=== PATIENT | male | born 1995 | race Caucasian/White ===

== ENCOUNTER 2017-01-25 12:18 | Inpatient (IN) | payer BC, OTHER ==
[~2017-01-25] VITALS: Ht 172.7 cm; Wt 113.4 kg
[2017-01-25] MEDS ORDERED: LOPERAMIDE HCL 2 MG CAPSULE PO PRN ×2 (15:00)
[2017-01-25] MEDS ORDERED: DICYCLOMINE HCL 20 MG TABLET PO PRN (15:00)
[2017-01-25] MEDS ORDERED: MIRALAX 17 GM POWD.PACK PO PRN (15:00)
[2017-01-25] MEDS ORDERED: LORAZEPAM 1 MG TABLET PO PRN ×2 (15:00)
[2017-01-25] MEDS ORDERED: MAG HYDROX/AL HYDROX/SIMETH 30 ML LIQUID UDC PO PRN (15:00)
[2017-01-25] MEDS ORDERED: MAGNESIUM HYDROXIDE 30 ML LIQUID UDC PO PRN (15:00)
[2017-01-25] MEDS ORDERED: ONDANSETRON 4 MG/2 ML VIAL IM PRN (15:00)
[2017-01-25] MEDS ORDERED: LORAZEPAM 2 MG/1 ML VIAL IM PRN (15:00)
--- NOTE | 2017-01-25 15:30 | NUR ---
INTAKE ASSESSMENT Received patient AOx4, ambulatory and in stable condition. Vital signs stable. Patient reports no known allergies and no home medications. Patient did not bring any medications with her to unit. Patient reports history of one seizure. Explained unit protocols and policies and patient verbalized understanding. Will admit patient.
[2017-01-25] MEDS ORDERED: THIAMINE HCL 200 MG/2 ML VIAL IM ONE (15:39)
--- NOTE | 2017-01-25 15:40 | NUR ---
ADMISSION NOTE VITAL SIGNS: BP 133/75 PULSE: 92 TEMP: 96.8 RR: 16 O2: 98% WEIGHT 250 LBS HEIGHT 5'8 ALLERGIES NKA Patient is a 21 year old male admitted to [facility] on 01/25/17 at 1540. Patient is under the care of Dr. Platt for ETOH dependence with occasional norco, xanax, and marijuana usage. Patient denies suicidal and homicidal ideations at this time. Patient denies being hospitalized within the last 30 days. Patient denies chest pain or SOB. Patient reports no home medications.. Upon assessment patient's skin is intact. CIWA 11 COWS 9 upon admission. NKA. AOx4 and able to answer necessary questions for admission process. Patient is full code, regular diet. Patient reports seizure history- side rails padded x2. Patient denies having a PCP. Breathing is even and unlabored. Patient ambulates with steady gait. Patient states bowel habits are normal.Patient reports treatment history at [facility] to [facility]. Patient reports living with a few friends currently. Hx anxiety, depression, and bipolar. Patient smokes cigarettes occasionally. Dr. Platt has been notified and assessed patient. Patient has been oriented to unit, room, and staff. All safety measures in place per hospital policy. Bed in lowest position, side rails up x2 and padded, call light within reach. Will continue to monitor. Substance Abuse: ETOH 2 pints daily for 1 month, last drank 1/2 gallon on 01/24/17 XANAX 12 mg occasionally for 3 years, last used 12 mg 1 week ago NORCO 120 mg occasionally for 3 years, lat used 120 mg 1 week ago MARIJUANA 3 grams daily since age 12, last smoked unknown amount on 01/24/17
[2017-01-25 15:45] VITALS: BP 133/75
[2017-01-25] MEDS: LORAZEPAM 1 MG TABLET PO SCH ×2 (16:09→20:12)
[2017-01-25 16:16] LABS: *AMPHETAMINE, URINE NEGATIVE (NEGATIVE); *BARBITURATE, URINE NEGATIVE (NEGATIVE); *CANNABINOID, URINE POSITIVE (NEGATIVE); *COCCAINE, URINE NEGATIVE (NEGATIVE); *OPIATE, URINE NEGATIVE (NEGATIVE); *PHENCYCLIDINE SCREEN,URINE NEGATIVE (NEGATIVE)
[2017-01-25 17:00] LABS: BASOPHILS # (AUTO) 0.1 K/uL (0.0-8.0); BASOPHILS % (AUTO) 0.7 % (0.0-2.0); EOSINOPHILS # (AUTO) 0.1 K/uL (0.0-0.7); EOSINOPHILS % (AUTO) 0.7 % (0.0-7.0); HEMATOCRIT 48.8 % (40-50); HEMOGLOBIN 16.4 G/DL (14.0-18.0); LYMPHOCYTES # (AUTO) 1.5 K/UL (0.8-4.8); LYMPHOCYTES % (AUTO) 14.3 % (20.5-51.5); MEAN CORPUSCULAR HEMOGLOBIN 29.6 UUG (27.0-31.0); MEAN CORPUSCULAR HGB CONC 34 g/dL (32.0-37.0); MEAN CORPUSCULAR VOLUME 87.9 FL (82.0-92.0); MONOCYTES # (AUTO) 0.8 K/UL (0.1-1.30); MONOCYTES % (AUTO) 7.3 % (0.0-11.0); PLATELET COUNT (AUTO) 243 K/UL (150-450); RED BLOOD CELL COUNT(AUTO) 5.55 MIL/UL (4.7-6.1); WHITE BLOOD COUNT (AUTO) 10.5 K/UL (4.0-11.2)
[2017-01-25 17:19] LABS: ALANINE AMINOTRANSFERASE 22 U/L (16-63); ALKALINE PHOSPHATASE 53 U/L (50-136); AMYLASE 50 U/L (25-115); ASPARTATE AMINOTRANSFERASE 19 U/L (15-37); BILIRUBIN,TOTAL 0.6 mg/dL (0.2-1.0); CARBON DIOXIDE 31 mmol/L (21-32); CHLORIDE 102 mmol/L (98-107); GLUCOSE 82 mg/dL (74-106); LIPASE 100 U/L (73-393); TOTAL PROTEIN, SERUM 7.8 g/dL (6.4-8.2); UREA NITROGEN, BLOOD 15 mg/dL (7-18)
[2017-01-25 17:21] LABS: ETHANOL < 3 MG/DL (0-0)
[2017-01-25 17:29] LABS: THYROID STIMULATING HORMONE 1.202 mIU/mL (0.358-3.740)
--- NOTE | 2017-01-25 18:35 | NUR ---
END OF SHIFT NOTE Admitted patient this afternoon. Patient admitted for ETOH dependence. Patient started on 5 day Ativan taper and tolerating well. CIWA 11 upon admission. Encouraged patient to encourage fluid intake. Patient currently resting in bed with rr even and unlabored and call gunn within reach. Will endorse to manufacturing shift supervisor.
--- NOTE | 2017-01-25 18:45 | NUR ---
START OF SHIFT NOTE: Endorsed by day shift nurse patient is a 21 year old male admitted to [facility] today, on 01/25/2017 for Alcohol dependence. Patient placed on 5 day Ativan taper with first dose administrated on 01/25/2017 at 1609, which tolerated well. Patient has NKA. Patient is on Full Code, is on Regular Diet. Patient placed on Fall and Seizures Precautions. Patient reports History of Seizures r/t withdrawal on 2012. Past Medical History: Depression, Anxiety, Bipolar Disorder. Patient reports Substance Use: 1. ETOH: "Vodka 2 pints every day during one month. Last used 1/2 gallon on 01/24/2017". 2. XANAX PO: "12 mg occasionally during last 3 years. Last taken 12 mg one week ago". 3. NORCO PO: "120 mg occasionally during last 3 years. Last dose 120 mg taken one week ago". Recent treatment at "[facility]"(2017) and "[facility] (2017). Upon assessment, patient is in the room A&Ox4, cooperative. Speech is soft and clear. CIWA 9: Patient c/o anxiety, agitation, nervousness, body aches, tremors, stomach cramps, and restlessness. VS: T:98'4; HR: 86; BP: 134/84; O2SAT: 99%; RR:19. Respirations even and unlabored. Lungs Sounds are clear thoroughly. Patient denies SOB and chest pain. Heart rate is regular, murmur noted. Bowel Sounds is active in all 4 quadrants. Last Bowel Movement was "01/25/17". Encouraged fluids intake as tolerated. Encouraged to attend groups activities. Education provided for hand washing and fall prevention in the hospital. Patient returned his knowledge back by verbalized understanding. All needs met. Safety measures in the place. Call light within reach, bed in the lowest position, and locked, padded side rails up bilaterally. Will continue to monitor closely. Addendum: 01/26/17 at 0633 by JIMMY MALDONADO RN Patient reports Nat Hx on 01/24/2017. Addendum: 01/26/17 at 1909 by JIMMY MALDONADO RN Heart rate is regular, no murmur noted.
[2017-01-25 20:00] VITALS: BP 134/84
[2017-01-25] MEDS: CLONIDINE HCL 0.1 MG TABLET PO PRN (21:43)
[2017-01-25] MEDS: diphenhydrAMINE 50 MG CAPSULE PO PRN (21:53)
--- NOTE | 2017-01-25 21:53 | NUR ---
PRN CLONIDINE 0.1 MG PO AND BENADRYL PO 50 MG 1 CAPS ADMINISTRATION Patient c/o increased anxiety and insomnia. Patient asked aid. Patient assessed. CIWA 10. VS WNL. PRN Clonidine PO and PRN Benadryl PO discussed with patient. Patient's educated for actions, adverse reactions, and side effects of Clonidine and Benadryl. Patient returned back knowledge by verbalized understanding. PRN Clonidine 0.1 mg 1 tab PO and PRN Benadryl PO 50 mg 1 caps administrated as ordered with full glass of water. All needs met. Safety measures in the place. Call light within reach, bed in the lowest position, and locked, padded bed rails up x2. Will continue to monitor closely.
--- NOTE | 2017-01-25 22:53 | NUR ---
RE-ASSESSMENT Patient is sleeping. Respirations even and unlabored. RR: 16. PRN Clonidine PO and PRN Benadryl PO were effective. All needs met. Safety measures in the place. Call light within reach, bed in the lowest position, and locked, padded bed rails up x2. Will continue to monitor closely.
--- NOTE | 2017-01-25 23:41 | NUR ---
PRN ATIVAN 1 MG PO ADMINISTRATION Patient c/o increased anxiety and asked aid. Patient 's assessed. CIWA 9. Patient c/o increased anxiety, agitation, nervousness, tremors, body aches, restlessness, and sweats. VSWNL. PRN Ativan 1 mg 1 tab PO administrated as ordered with full glass of water. All needs met. Safety measures in the place. Call light within reach, bed in the lowest position, and locked, padded side rails up bilaterally. Will continue to monitor closely.
[2017-01-26] VITALS: BP 142/66
[2017-01-26] MEDS: ACETAMINOPHEN 325 MG TABLET PO PRN ×2 (00:26→08:04)
--- NOTE | 2017-01-26 00:26 | NUR ---
PRN TYLENOL 650 MG 2 TABS PO ADMINISTRATION Patient c/o pain in his left knee "03/25". Patient's assessed. Left Knee is swollen, no redness, no open wounds noted. VS: T: 98.4; HR: 92; RR: 14; O2SAT: 95; RR: 14: Respirations unlabored and even. Patient denies SOB and chest pain. Pain level in the left knee "03/25". Patient reports that "two days ago he is fallen at "[employer] ". Left leg elevated. PRN Tylenol PO discussed with patient. Patient's educated for actions, adverse reactions, and side effects of Tylenol. Patient returned back knowledge by verbalized understanding. PRN Tylenol 650 mg 2 tabs PO administrated as ordered with full glass of water. All needs met. Safety measures in the place. Call light within reach, bed in the lowest position, and locked, padded bed rails up x2. Will continue to monitor closely.
--- NOTE | 2017-01-26 00:41 | NUR ---
RE-ASSESSMENT Patient is sleeping. Respirations even and unlabored. RR: 14. PRN Ativan PO was effective. All needs met. Safety measures in the place. Call light within reach, bed in the lowest position, and locked, padded bed rails up x2. Will continue to monitor closely.
--- NOTE | 2017-01-26 01:26 | NUR ---
RE-ASSESSMENT Patient is sleeping. Respirations even and unlabored. RR: 15. PRN Tylenol PO was effective. All needs met. Safety measures in the place. Call light within reach, bed in the lowest position, and locked, padded bed rails up x2. Will continue to monitor closely.
[2017-01-26 04:00] VITALS: BP 112/69
[2017-01-26] MEDS: IBUPROFEN 400 MG TABLET PO PRN ×2 (04:17→21:01)
--- NOTE | 2017-01-26 04:17 | NUR ---
PRN MOTRIN PO ADMINISTRATION Patient c/o knee pain "03/25". Patient 's assessed. VS WNL. PRN Motrin PO discussed with patient. Patient's educated for actions, adverse reactions, and side effects of Motrin. Patient returned back knowledge by verbalized understanding. PRN Motein 400 mg 1 tab PO administrated as ordered with full glass of water. Left knee's immobilized and elevated. All needs met. Safety measures in the place. Call light within reach, bed in the lowest position, and locked, padded bed rails up x2. Will continue to monitor closely.
--- NOTE | 2017-01-26 05:17 | NUR ---
RE-ASSESSMENT Patient is sleeping. RR: 17. Respirations even and unlabored. PRN Motrin PO was effective. Safety measures in the place. Call light within reach, bed in the lowest position, and locked, padded bed rails up x2. Will continue to monitor closely.
--- NOTE | 2017-01-26 06:58 | NUR ---
END OF SHIFT NOTE: Patient endorsed to day shift nurse in stable condition. Report given. Patient is a 21 year old male admitted to [facility] on 01/25/2017 for Alcohol dependence. Patient placed on 5 day Ativan taper on 01/25/2017, tolerated well. Patient has NKA. Patient is on Full Code, is on Regular Diet. Patient is on Fall and Seizures Precautions. Past Medical History: Alcohol Use Disorder, Anxiety, Bipolar Disorder, Depression, History of withdrawal induced Seizures (2012), Tobacco Use Disorder. Last CIWA 5 at 0400. During weight shifter patient presented with the following withdrawal s/s of anxiety, agitation, nervousness, body aches, tremors, stomach cramps, restlessness, and sweats. VS at 0400: T:97.7; HR: 94; BP: 112/69; O2SAT: 98%; RR:18. Respirations even and unlabored. Patient denies chest pain and SOB. Skin is intake, warm and dry to touch. Pain level in left knee "01/23". Patient reports Fallen Hx on 01/24/2017. PRN Clonidine PO, PRN Benadryl PO, PRN Ativan PO, PRN Tylenol PO , and PRN Motrin PO administrated to patient were effective. Encourage fluids intake, as tolerated. Patient remains compliant with treatment plan, medications, and diet regimen. Patient slept 7 hours, intake 2,150 ml, voided x1. All needs met. Safety measures in the place by hospital policy: bed in the lowest position, and locked, bed rails up x2.
--- NOTE | 2017-01-26 07:30 | NUR ---
Start of shift note; Received report from night nurse. Patient is a 21 year old male admitted on 01/25/17 for ETOH dependence. Patient was placed on a 5 day Ativan taper, no adverse reactions noted. Patient reported history of depression, anxiety, bipolar disorder. NKA, full code status, regular diet. Patient is on fall and seizure precaution. Bed in lowest position, call light within reach. Will continue to monitor patient.
[2017-01-26 08:00] VITALS: BP 111/60
[2017-01-26] MEDS: THIAMINE HCL 100 MG TABLET PO SCH (08:04)
[2017-01-26] MEDS: FOLIC ACID 1 MG TABLET PO SCH (08:04)
[2017-01-26] MEDS: MULTIVITAMINS,THERAPEUTIC TABLET PO SCH (08:04)
--- NOTE | 2017-01-26 08:04 | NUR ---
PRN medication; Patient is complaining of left knee pain, rated 6/10 on pain scale. Will continue to monitor patient for effectiveness of medication.
[2017-01-26] MEDS ORDERED: TUBERCULIN,PURIF.PROT.DERIV. 5 TU/0.1 ML TEST ID ONE (09:00)
[2017-01-26] MEDS ORDERED: LORAZEPAM 1 MG TABLET PO SCH (09:00)
--- NOTE | 2017-01-26 09:04 | NUR ---
Re-assessment; Patient stated decrease in pain, current pain rated 3/10. PRN medication is effective. MD notified of patient's recent left knee injury, MD ordered XRAY for difficulty walking and to rule out dislocation.
[2017-01-26] MEDS: LORAZEPAM 1 MG TABLET PO SCH ×4 (09:24→21:01)
[2017-01-26 12:00] VITALS: BP 140/101
[2017-01-26] MEDS: ONDANSETRON ODT 4 MG TAB.RAPDIS SL PRN ×2 (12:25→22:03)
[2017-01-26] MEDS: CLONIDINE HCL 0.1 MG TABLET PO PRN (12:25)
--- NOTE | 2017-01-26 12:25 | NUR ---
PRN medication; Patient is complaining of nausea, agitation and noted BP of 140/101. PRN Zofran 4mg ODT given for nausea and Clonidine 0.1mg PO for high BP. Will continue to monitor patient for effectiveness of medication.
--- NOTE | 2017-01-26 13:25 | NUR ---
Re-assessment; PRN medications are effective. Patient's BP went down to 122/76, patient denies nausea at this time.
[2017-01-26 14:11] LABS: HEPATITIS B SURFACE AG Negative (Negative)
[2017-01-26] MEDS: HYDROXYZINE PAMOATE 25 MG CAPSULE PO PRN (14:49)
[2017-01-26] MEDS: buPROPion XL 150 MG TAB.SR.24H PO SCH (14:49)
--- NOTE | 2017-01-26 14:55 | NUR ---
PRN medication; Patient appears to be anxious manifested by patient pacing back and forth in the room. MD evaluated patient. PRN Vistaril 50mg PO given for anxiety per MD order, Will continue to monitor for effectiveness of medication.
--- NOTE | 2017-01-26 15:14 | NUR ---
X-RAY result; Left knee X-ray shows no evidence of fracture or dislocation.
--- NOTE | 2017-01-26 15:55 | NUR ---
Re-assessment; Patient appears calm and comfortable. PRN medication is effective.
[2017-01-26 16:00] VITALS: BP 135/64
--- NOTE | 2017-01-26 18:41 | NUR ---
End of shift note; Patient is AOX4. Patient is a 21 year old male admitted on 01/25/17 for ETOH dependence. Patient was placed on a 5 day Ativan taper, no adverse reactions noted. Patient reported history of depression, anxiety, bipolar disorder. NKA, full code status, regular diet. Patient is on fall and seizure precaution. Bed in lowest position, call light within reach. Patient's last CIWA is 5 at 1600. Patient remained compliant with treatment plan. Medications were effective in reducing withdrawal symptoms. Met all needs.
--- NOTE | 2017-01-26 18:41 | NUR ---
START OF SHIFT NOTE: Upon endorsement report received from day shift nurse. Patient is in the room A&Ox4, cooperative. Speech is soft and clear. Patient is a 21 year old male admitted to [facility] on 01/25/2017 for Alcohol dependence. Patient continue extended 5 day Ativan taper with first dose administrated on 01/25/2017 at 1609. Patient remains compliant with treatment, medications, and diet regimen. Patient tolerated well. Patient has NKA. Patient is on Full Code, is on Regular Diet. Patient placed on Fall and Seizures Precautions. Past Medical History: History of Seizures on 2012. Depression, Anxiety, Bipolar Disorder. Last CIWA 5 from 1600: During day shift patient presented with following withdrawal s/s of anxiety, agitation, nervousness, body aches, tremors, restlessness, and diaphoresis. VS WNL and stable during day shift. Respirations even and unlabored. Lungs Sounds are clear thoroughly. Patient denies SOB and chest pain. Heart rate is regular, no murmur noted. Bowel Sounds is active in all 4 quadrants. Last Bowel Movement was "01/26/17 in the morning". X-ray of left knee done, as ordered, and results placed in chart. Encouraged fluids intake as tolerated. Encouraged to attend groups activities. All needs met. Safety measures in the place. Call light within reach, bed in the lowest position, and locked, padded side rails up bilaterally. Will continue to monitor closely.
[2017-01-26 20:00] VITALS: BP 127/70
[2017-01-26] MEDS: diphenhydrAMINE 50 MG CAPSULE PO PRN (21:01)
--- NOTE | 2017-01-26 21:01 | NUR ---
PRN MOTRIN 400 MG 1 TAB PO AND PRN BENADRYL 50 MG 1 CAPS PO ADMINISTRATION Patient c/o knee pain "8/10" and insomnia. Patient 's assessed. VS WNL. PRN Motrin PO and PRN Benadryl PO discussed with patient. Patient's educated for actions, adverse reactions, and side effects of Motrin and Benadryl. Patient returned back his knowledge by verbalized understanding. PRN Motrin 400 mg 1 tab PO and PRN Benadryl 50 mg 1 caps PO administrated as ordered with full glass of water. Left knee's immobilized and elevated. All needs met. Safety measures in the place. Call light within reach, bed in the lowest position, and locked, padded bed rails up x2. Will continue to monitor closely.
--- NOTE | 2017-01-26 22:01 | NUR ---
RE-ASSESSMENT Patient's reassessed. Patient is lying in the bed. Patient reports pain level now "2/10". PRN Motrin PO was effective. Patient said that PRN Benadryl PO was not effective. Patient "trying sleeping, but can't". Patient educated for keep left knee elevated. Left knee's immobilized and elevated, keep room quietest as possible: turn voice of TV "down", and not going out of the bed. Patient returned back his knowledge by verbalized understanding. All needs met. Safety measures in the place. Call light within reach, bed in the lowest position, and locked, padded bed rails up x2. Will continue to monitor closely.
--- NOTE | 2017-01-26 22:03 | NUR ---
PRN ZOFRAN ODT 4 MG 1 TAB SL ADMINISTRATION Patient c/o nausea and asked aid. Patient assessed. VS WNL. Patient denies vomiting and diarrhea now. PRN Zofran Odt 4 mg SL administrated as ordered. Patient tolerated well. Safety measures in the place. Call light within reach, bed in the lowest position and locked, padded rails up x2. Will continue to monitor closely.
--- NOTE | 2017-01-26 22:45 | NUR ---
NURSING ASSESSMENT Patient found on the shower floor. Neurological assessment done. Patient is A&Ox4, speech is soft and clear. DA bilaterally. Upper and Lower Extremities WNL. Assessment done: patient remains free from injury. VS: T: 98.1, HR: 78; BP: 120/68 and 124/70, RA O2Sat:98%, RR: 18., Pain Level "2/10" in the left knee. Andrew Martin MD phoned and notified for patient condition. Andrew Martin MD ordered neurological assessment Q4H. All needs met. Safety measures in the place. Call light within reach, bed in the lowest position, and locked, padded bed rails up x2. Will continue to monitor closely.
--- NOTE | 2017-01-26 23:03 | NUR ---
RE-ASSESSMENT Patient denies nausea now. PRN Zofran was was effective. Safety measures in the place. Call light within reach, bed in the lowest position and locked, padded rails up x2. Will continue to monitor closely.
[2017-01-27] VITALS: BP 140/71
[2017-01-27 04:00] VITALS: BP 108/64
--- NOTE | 2017-01-27 07:03 | NUR ---
END OF SHIFT NOTE: Patient endorsed to day shift nurse in stable condition. Report given. Patient is a 21 year old male admitted to [facility] on 01/25/2017 for Alcohol dependence. Patient continue extended 5 day Ativan taper since 01/25/2017, tolerated well. Patient has NKA. Patient is on Full Code, is on Regular Diet. Patient is on Fall and Seizures Precautions. Past Medical History: Alcohol Use Disorder, Anxiety, Bipolar Disorder, Depression, History of withdrawal induced Seizures (2012), Tobacco Use Disorder. Patient reports Fallen Hx on 01/24/2017. During shift coordinator patient found on the shower floor. Assessment done: Patient A&O x4, stable gait. VS WNL. DA, Upper and Lower Extremities are Normal. Patient remains free from injury. Doctor Andrew Kelsey MD phoned and notified for patient condition. Andrew Martin MD ordered neurological assessment Q4H. Last CIWA 5 at 0400. Patient presented with the following withdrawal s/s of anxiety, agitation, nervousness, body aches, tremors, nausea, restlessness, and sweats. VS at 0400: T:97.8; HR: 80; BP: 108/64; O2SAT: 99%; RR:17. Pain level "0/10". Respirations even and unlabored. Skin is intake, warm and dry to touch. PRN Benadryl PO, PRN Motrin PO, and PRN Zofran Odt SL administrated to patient, and were effective. Patient encouraged to drink and provided with PO fluids. Encouraged to attend groups activities. Patient remains compliant with treatment plan, medications, and diet regimen. Patient slept 3 hours, intake 2,240 ml, voided x1. All needs met. Safety measures in the place by hospital policy: bed in the lowest position, and locked, bed rails up x2.
--- NOTE | 2017-01-27 07:44 | NUR ---
Start of shift note; Received report from night nurse. Patient is a 21 year old male admitted on 01/25/17 for ETOH dependence. Patient was placed on a 5 day Ativan taper, no adverse reactions noted. Patient reported history of depression, anxiety, bipolar disorder. NKA, full code status, regular diet. Patient is on fall and seizure precaution. Neuro assessment to be done Q4H per MD order. Patient's last CIWA is 5 at 0400 and patient slept for 3 hours. Bed in lowest position, call light within reach. Will continue to monitor patient.
[2017-01-27 08:00] VITALS: BP 110/65
[2017-01-27] MEDS: buPROPion XL 150 MG TAB.SR.24H PO SCH (08:04)
[2017-01-27] MEDS: THIAMINE HCL 100 MG TABLET PO SCH (08:04)
[2017-01-27] MEDS: FOLIC ACID 1 MG TABLET PO SCH (08:04)
[2017-01-27] MEDS: LORAZEPAM 1 MG TABLET PO SCH ×3 (08:04→21:21)
[2017-01-27] MEDS: MULTIVITAMINS,THERAPEUTIC TABLET PO SCH (08:04)
[2017-01-27] MEDS ORDERED: LORAZEPAM 1 MG TABLET PO SCH ×2 (09:00)
--- NOTE | 2017-01-27 10:29 | NUR ---
Clinician encouraged client to start attending groups and told the client the group times. Client stated he would think about it.
--- NOTE | 2017-01-27 11:00 | NUR ---
Neuro Check; Neuro check done, thoroughly assessed patient. Patient is AOX4, denies any pain at this time. Patient was also evaluated by MD. MD notified of patient's condition. Will closely monitor patient.
[2017-01-27 12:00] VITALS: BP 123/73
[2017-01-27] MEDS ORDERED: LORAZEPAM 1 MG TABLET PO ONE (12:30)
--- NOTE | 2017-01-27 12:32 | NUR ---
One time order; Patient appears to be very anxious and agitated, pacing back and forth in the room, restless legs noted, complaining of mild tingling sensation on lower extremities. Patient's current CIWA score is 9. MD ordered Ativan 1mg PO one time order, given as ordered. Will closely monitor patient for effectiveness of medication.
[2017-01-27] MEDS ORDERED: BACLOFEN 20 MG TABLET PO PRN (12:45)
--- NOTE | 2017-01-27 13:32 | NUR ---
Re-assessment; Patient is AOX4. Patient's current CIWA score is 5. One time Ativan dose is effective.
[2017-01-27] MEDS: GABAPENTIN 300 MG CAPSULE PO SCH ×2 (14:49→21:21)
[2017-01-27 16:00] VITALS: BP 130/86
--- NOTE | 2017-01-27 16:55 | NUR ---
PRN medication; Patient is AOX4. Patient appears agitated, complaining of muscle spasms and hot and cold sweats. PRN Clonidine 0.1mg PO given for BP of 131/101. PRN Baclofen 20mg PO given for muscle spasms. Will continue to monitor patient for effectiveness of medication.
[2017-01-27] MEDS: CLONIDINE HCL 0.1 MG TABLET PO PRN (16:56)
--- NOTE | 2017-01-27 17:55 | NUR ---
Re-assessment; Patient's current BP is 128/72, HR 88. Patient stated decrease in muscle spasms. Patient appears calm and comfortable at this time. PRN medications are effective.
--- NOTE | 2017-01-27 18:43 | NUR ---
End of shift note; Patient is AOX4. Patient remained compliant with treatment plan. Medication were effective in reducing withdrawal symptoms. Patient's last CIWA score is 5 at 1600. Patient is on fall and seizure precaution. All safety measures secured. Met all needs.
[2017-01-27 20:00] VITALS: BP 138/86
--- NOTE | 2017-01-27 20:00 | NUR ---
Start of Shift Note: Report received from day shift nurse. Pt is a 21 Y/O male admitted on 01/25/2017 for medically-supervised withdrawal from ETOH, benzodiazepines, and opiates. Pt reports drinking 2 pints vodka daily for one month, and taking 12mg Xanax and 120mg [place] occasionally for the past 3 years. Pt is on a 5-day Ativan taper. Pt received with last CIWA=5, and PRN's clonidine and baclofen were given during day shift. Full code status, on regular diet, and reports NKDA/NKFA. Pt reports PMHx: depression, anxiety, bipolar DO, and hx of sz r/t withdrawal. Pt received in room and reports anxiety, diaphoresis, nausea, agitation, tactile disturbances. Bed is in low position and locked, side rails up x2, call light within reach. Will continue to monitor.
[2017-01-27] MEDS: IBUPROFEN 400 MG TABLET PO PRN (21:21)
--- NOTE | 2017-01-27 21:21 | NUR ---
PRN Motrin: Patient complains of generalized pain. Patient rates pain 8/10. Administered PRN Motrin as ordered. Will continue to monitor.
--- NOTE | 2017-01-27 22:20 | NUR ---
Reassessment: Patient denies pain at this time. Pain level decreased from 8 to 0 one hour after medication administration. PRN Motrin effective.
--- NOTE | 2017-01-27 23:45 | NUR ---
Hallucinations: Patient reports anxiety and "feeling like someone is trying to put a pillow over my face". Patient states, "I'm not having auditory hallucinations though." Will administer PRN Vistaril for anxiety and patient placed on 1:1 for safety. MD made aware.
[2017-01-27] MEDS: HYDROXYZINE PAMOATE 25 MG CAPSULE PO PRN (23:52)
--- NOTE | 2017-01-27 23:52 | NUR ---
PRN Vistaril: Patient complains of anxiety. Non-pharmacological measures not effective. Administered PRN Vistaril as ordered. Will continue to monitor.
[2017-01-28] VITALS: BP 137/87
--- NOTE | 2017-01-28 00:55 | NUR ---
PRN Reassessment: Patient states that PRN Vistaril was mildly effective at reducing anxiety. Will continue to monitor.
[2017-01-28 04:00] VITALS: BP 117/63
--- NOTE | 2017-01-28 04:00 | NUR ---
CIWA Deferred: CIWA assessment is defered for sleep. V/S stable. Safety precautions are in place. Will continue to monitor. Addendum: 01/28/17 at 0444 by GISELA DAS RN Amended: Links added.
--- NOTE | 2017-01-28 07:06 | NUR ---
End of Shift Note: Pt is a 21 Y/O male admitted to [facility] on 01/25/2017 for medically-supervised withdrawal from ETOH, benzodiazepines, and opiates. Pt reports PMHx: depression, anxiety, bipolar DO, and hx of sz r/t withdrawal. P is a full code. Pt is on a regular diet. Pt reports NKDA/NKFA. Pt reports drinking 2 pints vodka daily for one month, and taking 12mg Xanax and 120mg [place] occasionally for the past 3 years. Pt continues on a 6-day Ativan taper. Scheduled medication regime effectively managed s/s of withdrawal this shift, in addition to PRNs Vistaril for anxiety and PRN Motrin for pain. Last CIWA=5 at 00:00. V/S stable throughout shift with tachycardia (104 and 95). Patient reported visual hallucinations this shift and then reported that he was not experiencing further hallucinations after being placed on 1:1 for safety. Total fluid intake this shift: 1755 ml; output: urine x 3 and BM x 0. Pt is currently in bed and slept 5 hours this shift. All needs have been attended and met. Pt endorsed to day shift nurse.
--- NOTE | 2017-01-28 07:07 | NUR ---
Start of Shift Notes: Patient received in his room. Alert and oriented x 4. Able to make needs known. Respirations even and unlabored. No SOB noted. Skin warm and dry to touch. Abdomen soft and non-distended. BS (+) in all 4 quadrants. No complains of nausea, vomiting, diarrhea or constipation noted. No complains of abdominal discomfort noted. Voids independently. Ambulatory ad lesli with steady gait. Patient is a 21 year old male admitted for ETOH dependence who was placed on a 5-day Ativan taper as ordered. No adverse reactions noted. Has past medical hx of anxiety, depression, bipolar disorder, and seizures. NKA. Full code. Regular diet. Educated patient on his current medication regimen and his current plan of care. Slept for 9 hours. Last CIWA 5. Will continue to monitor closely.
[2017-01-28 08:00] VITALS: BP 139/93
[2017-01-28] MEDS: buPROPion XL 150 MG TAB.SR.24H PO SCH (08:26)
[2017-01-28] MEDS: GABAPENTIN 300 MG CAPSULE PO SCH ×3 (08:26→21:26)
[2017-01-28] MEDS: FOLIC ACID 1 MG TABLET PO SCH (08:26)
[2017-01-28] MEDS: THIAMINE HCL 100 MG TABLET PO SCH (08:27)
[2017-01-28] MEDS: MULTIVITAMINS,THERAPEUTIC TABLET PO SCH (08:27)
[2017-01-28] MEDS: LORAZEPAM 1 MG TABLET PO SCH ×4 (08:27→21:27)
[2017-01-28] MEDS: IBUPROFEN 400 MG TABLET PO PRN (08:32)
--- NOTE | 2017-01-28 08:32 | NUR ---
Motrin 400 mg PO given: Patient noted with complain of 7/10 headache. Non-pharmacological interventions were ineffective. Medicated patient with Motrin 400 mg PO as ordered. Will monitor for effectiveness.
[2017-01-28] MEDS ORDERED: LORAZEPAM 1 MG TABLET PO SCH ×2 (09:00)
--- NOTE | 2017-01-28 09:32 | NUR ---
Re-assessment: Per patient, PRN Motrin was effective in reducing headache. PL 10/23.
[2017-01-28 12:00] VITALS: BP 116/69
--- NOTE | 2017-01-28 13:37 | NUR ---
Therapist encouraged client to attend group therapy today at 11am and 3:30pm. Client responded by stating that he would attend.
[2017-01-28 16:01] VITALS: BP 157/78
[2017-01-28] MEDS ORDERED: BACLOFEN 20 MG TABLET PO PRN (17:15)
--- NOTE | 2017-01-28 18:46 | NUR ---
End of Shift Notes: Patient is a 21 year old male admitted for ETOH dependence who was placed on an extended 5-day Ativan taper as ordered. No adverse reactions noted. Has past medical hx of depression, anxiety and bipolar disorder. VS monitored closely. No significant abnormalitites noted. Withdrawal symptoms were closely monitored. Patient presented with anxiety and sweats. Initial CIWA 3. Last CIWA 3. Motrin 400 mg PO given for headache with help after 1 hour. Compliant with care and treatment, however appears to med seek at times. All needs met and attended. Will continue to monitor closely.
[2017-01-28 20:00] VITALS: BP 138/85
--- NOTE | 2017-01-28 20:00 | NUR ---
Start of Shift Note: Report received from day shift nurse. Pt is a 21yo male admitted on 01/25/2017 for medically-supervised withdrawal from ETOH. Pt reports drinking 2 pints vodka daily for one month. Pt also reports taking 12mg Xanax and 120mg [place] intermittently for the past 3 years. Pt is on an extended 5-day Ativan taper. Pt received with last CIWA=3, and PRN Motrin was given during day shift. Full code, NKDA/NKFA, regular diet. Pt reports PMHx: anxiety, bipolar DO, depression, and sz r/t withdrawal. Pt received in room and reports anxiety, diaphoresis, agitation. Bed is in low position and locked, side rails up x2, call light within reach. Will continue to monitor.
[2017-01-28] MEDS: risperiDONE 0.5 MG TABLET PO SCH (21:26)
[2017-01-28] MEDS: BACLOFEN 20 MG TABLET PO SCH (21:27)
[2017-01-29] VITALS: BP 147/78
[2017-01-29 04:00] VITALS: BP 133/65
--- NOTE | 2017-01-29 04:00 | NUR ---
CIWA Deferred: CIWA deferred for sleep. V/S stable. All safety precautions are in place. Will continue to monitor. Addendum: 01/29/17 at 0456 by GISELA DAS RN Amended: Links added.
[2017-01-29] MEDS: BACLOFEN 20 MG TABLET PO SCH ×3 (06:33→21:47)
--- NOTE | 2017-01-29 06:37 | NUR ---
[address]: End of Shift Note: Pt is a 21 yo male admitted to [facility] on 01/25/2017 for medically-supervised withdrawal from ETOH, benzos, and opiates. Pt reports PMHx: anxiety, depression, bipolar DO, and sz r/t withdrawal. Pt is a full code. Pt reports NKDA/NKFA. Pt is on a regular diet. Pt reports drinking 2 pints vodka daily for one month, and taking 12mg Xanax and 120mg [place] intermittently for 3 years. Pt continues on a 6-day Ativan taper. Scheduled medication regime effectively managed s/s of withdrawal this shift, and no PRNs were necessary. Last CIWA=3 at 00:00. V/S stable throughout shift. Total fluid intake this shift: 2973 ml; output: urine x 3 and BM x 0. Pt is currently in bed and slept 6 hours this shift. All needs have been attended and met. Pt endorsed to day shift nurse.
--- NOTE | 2017-01-29 07:46 | NUR ---
Start of Shift Notes: Patient received in his room. Alert and oriented x 4. Able to make needs known. Respirations even and unlabored. No SOB noted. Skin warm and dry to touch. Abdomen soft and non-distended. BS (+) in all 4 quadrants. No complains of nausea, vomiting, diarrhea or constipation noted. No complains of abdominal discomfort noted. Voids independently. Ambulatory ad lesli with steady gait. Patient is a 21 year old male admitted for ETOH dependence who was placed on a 5-day Ativan taper as ordered. No adverse reactions noted. Has past medical hx of anxiety, depression, bipolar disorder, and seizures. NKA. Full code. Regular diet. Educated patient on his current medication regimen and his current plan of care. Slept for 6 hours. Last CIWA 3. Will continue to monitor closely.
[2017-01-29 08:00] VITALS: BP 134/67
[2017-01-29] MEDS: buPROPion XL 150 MG TAB.SR.24H PO SCH (08:42)
[2017-01-29] MEDS: MULTIVITAMINS,THERAPEUTIC TABLET PO SCH (08:43)
[2017-01-29] MEDS: LORAZEPAM 1 MG TABLET PO SCH ×3 (08:43→21:47)
[2017-01-29] MEDS: GABAPENTIN 300 MG CAPSULE PO SCH ×3 (08:43→21:46)
[2017-01-29] MEDS: FOLIC ACID 1 MG TABLET PO SCH (08:43)
[2017-01-29] MEDS: THIAMINE HCL 100 MG TABLET PO SCH (08:43)
[2017-01-29] MEDS ORDERED: LORAZEPAM 1 MG TABLET PO SCH ×2 (09:00)
[2017-01-29 12:00] VITALS: BP 135/60
--- NOTE | 2017-01-29 15:52 | NUR ---
Therapist discussed group psychotherapy with client, and encouraged client to engage in daily participation. Client was reminded of group times (11am and 3:30pm).
[2017-01-29 16:00] VITALS: BP 135/93
--- NOTE | 2017-01-29 18:58 | NUR ---
End of Shift Notes: Patient is a 21 year old male admitted for ETOH dependence who was placed on an extended 5-day Ativan taper as ordered. No adverse reactions noted. Has past medical hx of depression, anxiety and bipolar disorder. VS monitored closely. No significant abnormalities noted. Withdrawal symptoms were closely monitored. Patient presented with anxiety and sweats. Initial CIWA 3. Last CIWA 2. Compliant with care and treatment. Participated in group and in activities. All needs met and attended. Will continue to monitor closely.
[2017-01-29 20:00] VITALS: BP 142/89
--- NOTE | 2017-01-29 20:00 | NUR ---
Start of Shift Note: Report received from day shift nurse. Pt is a 21yo male admitted on 01/25/2017 for medically-supervised withdrawal from alcohol. Pt reports drinking 2 pints vodka daily for a month. Pt also reports taking 12mg Xanax and 120mg [place] intermittently for 3 years. Pt continues on a 6-day Ativan taper. Pt received with last CIWA=2, and no PRN medications were given during day shift. Full code, NKDA/NKFA, regular diet. Pt reports PMHx: anxiety, bipolar DO, depression, and sz r/t withdrawal. Pt received in room and reports diaphoresis and anxiety. Bed is in low position and locked, side rails up x2, call light within reach. Will continue to monitor.
[2017-01-29] MEDS: risperiDONE 0.5 MG TABLET PO SCH (21:47)
[2017-01-30] VITALS: BP 138/85
--- NOTE | 2017-01-30 | NUR ---
CIWA Deferred: CIWA assessment is deferred for sleep. V/S stable. All safety precautions are in place. Will continue to monitor. Addendum: 01/30/17 at 0117 by GISELA DAS RN Amended: Links added.
[2017-01-30 04:00] VITALS: BP 121/82
--- NOTE | 2017-01-30 04:00 | NUR ---
CIWA Deferred: CIWA deferred for sleep. V/S stable, all safety precautions in place. Will continue to monitor. Addendum: 01/30/17 at 0429 by GISELA DAS RN Amended: Links added.
[2017-01-30] MEDS: BACLOFEN 20 MG TABLET PO SCH ×3 (05:58→21:11)
--- NOTE | 2017-01-30 06:48 | NUR ---
End of Shift Note: Pt is a 21M admitted on 01/25/2017 for medically-supervised withdrawal from ETOH. PMHx of anxiety, depression, bipolar DO, and SZ. Full code status, NKDA/NKFA, regular diet. Pt reported drinking 2 pints of vodka daily for one month. Pt also reported taking 12mg Xanax and 120mg [place] intermittently for 3 years. Pt is to start day six of a 6-day Ativan taper today. Scheduled medication regime effectively managed s/s of withdrawal this shift, and no PRN medications were necessary. Last CIWA=2 at 20:00. V/S stable throughout shift, with tachycardia. Total fluid intake this shift: 2292 ml; output: urine x 2 and BM x 1. Pt is currently in bed and slept 6 hours this shift. All needs attended and met. Pt endorsed to day shift nurse.
--- NOTE | 2017-01-30 07:00 | NUR ---
Start of Shift Notes: Patient received in his room. Alert and oriented x 4. Able to make needs known. Respirations even and unlabored. No SOB noted. Skin warm and dry to touch. Abdomen soft and non-distended. BS (+) in all 4 quadrants. No complains of nausea, vomiting, diarrhea or constipation noted. No complains of abdominal discomfort noted. Voids independently. Ambulatory ad lesli with steady gait. Patient is a 21 year old male admitted for ETOH dependence who was placed on a 5-day Ativan taper as ordered. No adverse reactions noted. Has past medical hx of anxiety, depression, bipolar disorder, and seizures. NKA. Full code. Regular diet. Educated patient on his current medication regimen and his current plan of care. Slept for 6 hours. Last CIWA 2. Will continue to monitor closely.
[2017-01-30 08:00] VITALS: BP 122/66
[2017-01-30] MEDS: FOLIC ACID 1 MG TABLET PO SCH (08:20)
[2017-01-30] MEDS: LORAZEPAM 1 MG TABLET PO SCH ×2 (08:20→21:10)
[2017-01-30] MEDS: GABAPENTIN 300 MG CAPSULE PO SCH ×3 (08:20→21:11)
[2017-01-30] MEDS: MULTIVITAMINS,THERAPEUTIC TABLET PO SCH (08:20)
[2017-01-30] MEDS: buPROPion XL 150 MG TAB.SR.24H PO SCH (08:20)
[2017-01-30] MEDS: THIAMINE HCL 100 MG TABLET PO SCH (08:21)
--- NOTE | 2017-01-30 08:21 | NUR ---
Vit B1 not administered: Patient refused Vitamin B1 medication. Educated patient on the benefits of the med and risk but patient still refused. Patient states "I don't need it right now." Notified MD. Will continue to monitor.
[2017-01-30] MEDS: IBUPROFEN 400 MG TABLET PO PRN (11:04)
--- NOTE | 2017-01-30 11:04 | NUR ---
Motrin and Miralax given: Patient complained of 5/10 headache. Also complains of constipation. Oral fluids encouraged. Encouraged activity and exercises. Medicated patient with Miralax 17grams as ordered. Will monitor for effectiveness.
--- NOTE | 2017-01-30 11:13 | NUR ---
MD Communication: Notified MD that patient has had no changes in LOC. Per MD, ok to complete neurochecks.
[2017-01-30 12:00] VITALS: BP 129/85
--- NOTE | 2017-01-30 12:04 | NUR ---
Re-assessment: Per patient, PRN Motrin was effective in relieving headache. No results noted from Miralax at this time. Will continue to monitor.
[2017-01-30 16:00] VITALS: BP 139/80
--- NOTE | 2017-01-30 18:49 | NUR ---
End of Shift Notes: Patient is a 21 year old male admitted for ETOH dependence who was placed on an extended 5-day Ativan taper as ordered. No adverse reactions noted. Has past medical hx of depression, anxiety and bipolar disorder. VS monitored closely. No significant abnormalities noted. Withdrawal symptoms were closely monitored. Patient presented with anxiety. Initial CIWA 2. Last CIWA 1. Medicated patient with Motrin 400 mg PO at 1104 for headache and Miralax 17gm PO for constipation. No relief noted from Miralax at this time. Compliant with care and treatment. Participated in group and in activities. All needs met and attended. Will continue to monitor closely.
[2017-01-30 20:00] VITALS: BP 137/69
--- NOTE | 2017-01-30 20:00 | NUR ---
1999 Patient received awake, alert and ambulating to his room # 316, from [employer] group in recreation room. Gait is steady. Patient responds with big smile and " Hi, you my nurse tonight?", when nurse greets patient and introduces herself. Patient is oriented to person, place, day, date, time and his personal situation. Patient's color is tannish-pink and his skin is clean, warm, dry and intact. Lung sounds are clear bilaterally and active bowel sounds are noted X 4 abdominal Quads, per auscultation. Patient states that he is " feeling good and he has been taking his regular diet trays, having regular food snacks and taking fluids ad lesli with no real gastric issues. Patient states further that he has been attending [employer] groups regularly. Vital signs are: 98.5-104-18 137/69, O2 Sat 97%, CIWA 2. Patient offers no requests or c/o anything at this time. Patient was admitted on 01/25/17 for: Alcohol (Vodka), Xanax and [place] withdrawal and he is currently on a 5-Day Ativan medication taper per MD order, which he has apparently been tolerating well. Bed is locked and in lowest position, bed rails are up X 1 and call light within patient's easy reach.
[2017-01-30] MEDS: risperiDONE 0.5 MG TABLET PO SCH (21:11)
[2017-01-30] MEDS: ACETAMINOPHEN 325 MG TABLET PO PRN (21:11)
--- NOTE | 2017-01-30 21:11 | NUR ---
PRN MEDICATION: Prn Tylenol 650 mg p.o. given per request for a " headache I've had all day". 8/10 pain scale.
--- NOTE | 2017-01-30 22:11 | NUR ---
REASSESSMENT PRN MEDICATION: Patient watching television, while lying in bed. Patient states that prn Tylenol has helped his headache, 2/10 pain scale now.
--- NOTE | 2017-01-31 | NUR ---
Patient refused to be awakened for V/S to be done at this time.
--- NOTE | 2017-01-31 04:00 | NUR ---
Patient refused to be awakened for V/S to be done at this time.
[2017-01-31] MEDS: BACLOFEN 20 MG TABLET PO SCH ×3 (06:09→21:34)
--- NOTE | 2017-01-31 06:30 | NUR ---
0630 Patient slept a total of 6 hours and he had 2 voids and 1 stools. Total intake was 2,565 ml p.o. Prn medication given noted separately per floor protocol. V/SS afebrile, last CIWA 2 at 0000. Patient is presently sleeping comfortably in stable condition, with eyes closed and respirations noted at 12.
--- NOTE | 2017-01-31 07:00 | NUR ---
Start of Shift Notes: Patient received in his room. Alert and oriented x 4. Able to make needs known. Respirations even and unlabored. No SOB noted. Skin warm and dry to touch. Abdomen soft and non-distended. BS (+) in all 4 quadrants. No complains of nausea, vomiting, diarrhea or constipation noted. No complains of abdominal discomfort noted. Voids independently. Ambulatory ad lesli with steady gait. Patient is a 21 year old male admitted for ETOH dependence who was placed on a extended 5-day Ativan taper as ordered. No adverse reactions noted. Has past medical hx of anxiety, depression, bipolar disorder, and seizures. NKA. Full code. Regular diet. Educated patient on his current medication regimen and his current plan of care. Encouraged oral fluid intake and encouraged group participation to learn new skills to prevent relapse. Slept for 6 hours. Last CIWA 2. Will continue to monitor closely.
[2017-01-31 08:00] VITALS: BP 117/67
[2017-01-31] MEDS: MULTIVITAMINS,THERAPEUTIC TABLET PO SCH (08:53)
[2017-01-31] MEDS: THIAMINE HCL 100 MG TABLET PO SCH (08:53)
[2017-01-31] MEDS: FOLIC ACID 1 MG TABLET PO SCH (08:53)
[2017-01-31] MEDS: GABAPENTIN 300 MG CAPSULE PO SCH ×3 (08:53→20:06)
[2017-01-31] MEDS: buPROPion XL 150 MG TAB.SR.24H PO SCH (08:53)
[2017-01-31 12:00] VITALS: BP 125/74
[2017-01-31] MEDS ORDERED: KETOROLAC TROMETHAMINE 30 MG INJ IM PRN (13:45)
[2017-01-31 13:52] LABS: *AMPHETAMINE, URINE NEGATIVE (NEGATIVE); *BARBITURATE, URINE NEGATIVE (NEGATIVE); *CANNABINOID, URINE NEGATIVE (NEGATIVE); *COCCAINE, URINE NEGATIVE (NEGATIVE); *OPIATE, URINE NEGATIVE (NEGATIVE); *PHENCYCLIDINE SCREEN,URINE NEGATIVE (NEGATIVE)
--- NOTE | 2017-01-31 14:16 | NUR ---
Toradol 30 mg IM given: Patient noted with complain of 7/10 headache. MD ordered for patient to have Toradol 30 mg IM as ordered. Toradol 30 mg IM as ordered given to patient's left deltoid. No s.s of bleeding to area noted.
--- NOTE | 2017-01-31 14:46 | NUR ---
Re-assessment: Per patient, PRN Toradol was effective in reducing headache. PL 2.
[2017-01-31 16:00] VITALS: BP 125/74
[2017-01-31] MEDS ORDERED: BACL20TA PO (17:14)
[2017-01-31] MEDS ORDERED: RISP0.5T5 PO (17:14)
[2017-01-31] MEDS ORDERED: BUPR-96 PO (17:14)
[2017-01-31] MEDS ORDERED: GABA-534 PO (17:14)
--- NOTE | 2017-01-31 18:53 | NUR ---
End of Shift Notes: Patient is a 21 year old male admitted for ETOH dependence who was placed on an extended 5-day Ativan taper as ordered. No adverse reactions noted. Patient completed taper today and will be discharging tomorrow. UDS in and resulted. Has past medical hx of depression, anxiety and bipolar disorder. VS monitored closely. No significant abnormalities noted. Withdrawal symptoms were closely monitored. Patient presented with anxiety. Initial CIWA 2. Last CIWA 1. Medicated patient with Toradol 30 mg IM as ordered at 1416 for headache with help after 30 minutes. Compliant with care and treatment. Participated in group and in activities. All needs met and attended. Will continue to monitor closely. .
[2017-01-31 20:00] VITALS: BP 154/72
--- NOTE | 2017-01-31 20:00 | NUR ---
1999 Patient received awake, alert and ambulating to his room # 316 from [employer] group in recreation room. Gait is brisk, steady. Upon seeing nurse, patient states, " Hi, you my nurse again tonight?" Patient's color is mcmillan-pink and his skin is clean, warm, dry and intact. Patient is oriented to person, place, day, date, time and his personal situation. Patient states that he is being discharged tomorrow and he states that, though he is happy to be taking the next step in his new sobriety quest, he is also feeling " a little nervous". Patient given calm reassurances, praise for his detox accomplishment thus far and positive encouragement for his future. Patient then states, " Oh thank you". Vital signs are: 97.9-96-16 154/72, O2 Sat 98%, CIWA 1. Patient states that he continues to attend all [employer] groups, eat all of his regular diet trays and take fluids ad lesli, with no gastric issues. Patient was admitted on 01/25/17 for: Alcohol (Vodka), Xanax and [place] withdrawal and his 5-Day Ativan medication taper has been completed at this time. Patient offers no requests and overall he is friendly, cooperative and verbally appropriate when interacting with nurse. Mood/affect is both bright and a bit guarded. Bed is locked and in lowest position, bed rails are up X 1 and call light is within patient's easy reach.
[2017-01-31] MEDS: risperiDONE 0.5 MG TABLET PO SCH (20:06)
[2017-01-31] MEDS: ACETAMINOPHEN 325 MG TABLET PO PRN (20:07)
--- NOTE | 2017-01-31 20:07 | NUR ---
PRN MEDICATION: Prn Tylenol 650 mg p.o. given per request for c/o frontal headache, 5/10 pain scale.
--- NOTE | 2017-01-31 21:07 | NUR ---
REASSESSMENT PRN MEDICATION: Patient watching television in recreation room with other patients. Patient states that his headache is much improved now, " a zero", he states.
--- NOTE | 2017-02-01 | NUR ---
Patient refused to be awakened for V/S to be taken at this time.
--- NOTE | 2017-02-01 04:00 | NUR ---
Patient refused to be awakened for V/S to be taken at this time.
[2017-02-01] MEDS: BACLOFEN 20 MG TABLET PO SCH (06:05)
--- NOTE | 2017-02-01 06:30 | NUR ---
0630 Patient slept a total of 6 hours and he had 3 voids and no stools. Total intake was 1,291 ml p.o. Prn medication given noted separately per floor protocol. V/SS afebrile, last CIWA was 1 at 0000. Patient is presently sleeping soundly with eyes closed and respirations deep, even, lightly stenorous, unlabored at 14.
--- NOTE | 2017-02-01 07:15 | NUR ---
Start Of Shift Patient received . Pt is a 21M admitted on 01/25/2017 for medically-supervised withdrawal from ETOH. Pt is full code regular diet continues on fall and seizure precautions. Pt completed his 5 day ativan taper, tolerated well. Pt denies any food or drug allergies. Pts last CIWA was a 1 taken at 0400. Pt received a PRN Tylenol last night, medication was effective per mine shifter nurse. Liquids encouraged to facilitate the detox process. Pt slept a total of 6 hours last night. All safety measures in place, call light within reach, will continue to monitor and provide care.
[2017-02-01 08:00] VITALS: BP 126/73
[2017-02-01] MEDS: buPROPion XL 150 MG TAB.SR.24H PO SCH (08:50)
[2017-02-01] MEDS: FOLIC ACID 1 MG TABLET PO SCH (08:50)
[2017-02-01] MEDS: MULTIVITAMINS,THERAPEUTIC TABLET PO SCH (08:50)
[2017-02-01] MEDS: GABAPENTIN 300 MG CAPSULE PO SCH (08:50)
[2017-02-01] MEDS: THIAMINE HCL 100 MG TABLET PO SCH (08:50)
--- NOTE | 2017-02-01 09:20 | NUR ---
DISCHARGE NOTE Pt is in stable condition. Vitals WNL, Pt alert and oriented x4, skin intact, Pt denies any SI/HI. All discharge paperwork completed dated and signed. Pt educated about discharge instructions, what to do after discharge when to contact MD as well as the s/s reportable to MD, pt verbalized understanding. Pt was provided with all of his discharge paperwork. Pt's last CIWA:1 taken at 0800. Pt was discharged from [facility] on 02/01/17 at 0918. Pt left the building with all of his belongings and prescriptions pt did not bring any home medications. MD and psychiatrist have been contacted notified and aware of pt's d/c.
== END 2017-02-01 09:18 | disposition other institution (70) | DRG 895 ==
LOC: SRC 14:46
PROVIDERS: ADMIT Internal Medicine; ATTEND Internal Medicine
PROC: HZ2ZZZZ Detoxification Services for Substance Abuse Treatment (ICD-10-PCS; principal; 2017-01-25)
PROC: HZ31ZZZ Individual Counseling for Substance Abuse Treatment, Behavioral (ICD-10-PCS; 2017-01-26)
PROC: HZ41ZZZ Group Counseling for Substance Abuse Treatment, Behavioral (ICD-10-PCS; 2017-01-27)
DX: F10.232 Alcohol dependence with withdrawal with perceptual disturbance (principal); F31.32 Bipolar disorder, current episode depressed, moderate; F13.10 Sedative, hypnotic or anxiolytic abuse, uncomplicated; F11.10 Opioid abuse, uncomplicated; Y90.9 Presence of alcohol in blood, level not specified; F41.9 Anxiety disorder, unspecified; G47.00 Insomnia, unspecified; Z72.0 Tobacco use; M25.762 Osteophyte, left knee; M25.562 Pain in left knee; W18.39XA Other fall on same level, initial encounter; Y92.89 Other specified places as the place of occurrence of the external cause; G25.81 Restless legs syndrome; Z81.8 Family history of other mental and behavioral disorders; Z81.1 Family history of alcohol abuse and dependence
CPT/HCPCS: 36415; 70030-TC; 73562; 80307; 80349; 83690; 83735; 84443; 85025; 86580; 86592; 86705; 86803; 87340; 87806; G0480; J1885; J3411; Q0162; Q0163

== ENCOUNTER 2017-02-27 20:13 | Inpatient (IN) | payer BC, OTHER ==
[~2017-02-27] VITALS: Ht 172.7 cm; Wt 117.9 kg
[~2017-02-27 20:13] MED LIST: BACL20TA PO; BUPR-96 PO; GABA-534 PO; RISP0.5T5 PO
[2017-02-27] MEDS ORDERED: ACETAMINOPHEN 325 MG TABLET PO PRN (20:45)
[2017-02-27] MEDS ORDERED: DICYCLOMINE HCL 20 MG TABLET PO PRN (20:45)
[2017-02-27] MEDS ORDERED: METHOCARBAMOL 750 MG TABLET PO PRN (20:45)
[2017-02-27] MEDS ORDERED: THIAMINE HCL 200 MG/2 ML VIAL IM ONE (20:45)
[2017-02-27] MEDS ORDERED: IBUPROFEN 400 MG TABLET PO PRN (20:45)
[2017-02-27] MEDS ORDERED: DIAZEPAM 10 MG TABLET PO PRN ×2 (20:45)
[2017-02-27] MEDS ORDERED: MAGNESIUM HYDROXIDE 30 ML LIQUID UDC PO PRN (20:45)
[2017-02-27] MEDS ORDERED: CLONIDINE HCL 0.1 MG TABLET PO PRN (20:45)
[2017-02-27] MEDS ORDERED: MAG HYDROX/AL HYDROX/SIMETH 30 ML LIQUID UDC PO PRN (20:45)
[2017-02-27] MEDS ORDERED: LORAZEPAM 2 MG/1 ML VIAL IM PRN (20:45)
[2017-02-27] MEDS ORDERED: ONDANSETRON 4 MG/2 ML VIAL IM PRN (20:45)
[2017-02-27] MEDS ORDERED: LOPERAMIDE HCL 2 MG CAPSULE PO PRN ×2 (20:45)
[2017-02-27] MEDS ORDERED: DIAZEPAM 5 MG TABLET PO PRN (20:45)
[2017-02-27] MEDS ORDERED: HYDROXYZINE PAMOATE 25 MG CAPSULE PO PRN (20:45)
[2017-02-27] MEDS ORDERED: diphenhydrAMINE 50 MG CAPSULE PO PRN (20:45)
[2017-02-27] MEDS ORDERED: MIRALAX 17 GM POWD.PACK PO PRN (20:45)
--- NOTE | 2017-02-27 20:45 | NUR ---
INTAKE ASSESSMENT Received patient AOx4, ambulatory and in stable condition. Vital signs stable,walks with a steady gait,provided urine sample for drug screen.Patient reports no known allergies. Patient reports history of one seizure d/t withdrawals in 2013. Explained unit protocols and policies and patient verbalized understanding.Patient is in stable condition to proceed to detox unit.
[2017-02-27 21:00] VITALS: BP 136/63
[2017-02-27] MEDS ORDERED: PHENOBARBITAL 60 MG TABLET PO ONE (21:30)
--- NOTE | 2017-02-27 21:30 | NUR ---
ADMISSION NOTE V/S :- PC=054/63,FW=315,T=07.6,R=18,O2=98% HT-5'8".WT-260 LBS ALLERGIES-NKA Admitting 21 y/o male to [facility] for ETOH/HEROIN AND BENZO dependency,under the care of Dr Kelsey. Pt is alert/oriented x 4,has NKA,placed on regular diet and full code status.PMH of anxiety,depression,torn meniscus in both knees and seizure hx one time only due to withdrawals.Pt was recently discharged from [facility] on January.He stayed sober for 1 day only and relapsed.Pt lives at home with his family but stated he got kicked out of his house d/t his substance use disorder.Pt denies ant SI/HI.Placed on seizure and fall precautions.Pt does not have a PCP.Said he has been in detox several times,unable to give details at this time.Upon admission,COWS=13,CIWA=7.Skin is intact,breathing is even and non labored,abdomen is soft and palpable with b/s present x 4. has been notified.Patient has been oriented to unit, room, and staff. All safety measures in place per hospital policy. Bed is locked in lowest position, side rails up x2 and padded, call light within reach. Will continue to monitor. Substance Abuse: ETOH - 750 mls daily for 25 days, last drank on 02/27/17 XANAX - 30 mg daily for 25 days,last taken 10 mgs on 02-27-17 KLONOPIN - 60 MG daily for 25 days,last taken 10 mg on 02-27-17 HEROIN - 1 GRAM every other day,last used on 02-27-17 DETOX HISTORY [facility] ABLE TO CHANGE [facility]
[2017-02-27] MEDS ORDERED: THIAMINE HCL 200 MG/2 ML VIAL ONE (21:48)
[2017-02-27] MEDS ORDERED: PHENOBARBITAL 60 MG TABLET ONE (21:48)
[2017-02-27] MEDS ORDERED: diphenhydrAMINE 50 MG CAPSULE ONE (21:49)
[2017-02-27 22:12] LABS: BASOPHILS # (AUTO) 0.1 K/uL (0.0-8.0); BASOPHILS % (AUTO) 0.6 % (0.0-2.0); EOSINOPHILS # (AUTO) 0.1 K/uL (0.0-0.7); EOSINOPHILS % (AUTO) 1.3 % (0.0-7.0); HEMATOCRIT 46.1 % (40-50); HEMOGLOBIN 15.7 G/DL (14.0-18.0); LYMPHOCYTES # (AUTO) 1.9 K/UL (0.8-4.8); LYMPHOCYTES % (AUTO) 19.8 % (20.5-51.5); MEAN CORPUSCULAR HEMOGLOBIN 29.9 UUG (27.0-31.0); MEAN CORPUSCULAR HGB CONC 34 g/dL (32.0-37.0); MEAN CORPUSCULAR VOLUME 87.8 FL (82.0-92.0); MONOCYTES # (AUTO) 0.6 K/UL (0.1-1.30); MONOCYTES % (AUTO) 6.7 % (0.0-11.0); NEUTROPHILS # (AUTO) 6.8 K/UL (1.8-8.9); NEUTROPHILS % (AUTO) 71.6 % (38.5-71.5); PLATELET COUNT (AUTO) 207 K/UL (150-450); RED BLOOD CELL COUNT(AUTO) 5.25 MIL/UL (4.7-6.1); WHITE BLOOD COUNT (AUTO) 9.5 K/UL (4.0-11.2)
[2017-02-27 22:26] LABS: *AMPHETAMINE, URINE NEGATIVE (NEGATIVE); *BARBITURATE, URINE NEGATIVE (NEGATIVE); *CANNABINOID, URINE POSITIVE (NEGATIVE); *COCCAINE, URINE NEGATIVE (NEGATIVE); *OPIATE, URINE POSITIVE (NEGATIVE); *PHENCYCLIDINE SCREEN,URINE NEGATIVE (NEGATIVE)
[2017-02-27] MEDS ORDERED: BUPRENORPHINE HCL 2 MG TAB.SUBL SL PRN (22:30)
--- NOTE | 2017-02-27 22:36 | NUR ---
PRN SUBUTEX 4 MG SL GIVEN ORDERED FOR COWS SCORE OF 13.WILL MONITOR.
[2017-02-27 22:37] LABS: THYROID STIMULATING HORMONE 1.694 mIU/mL (0.358-3.740)
[2017-02-27] MEDS ORDERED: BUPRENORPHINE HCL 2 MG TAB.SUBL SL ONE (22:44)
[2017-02-27 22:50] LABS: BILIRUBIN,TOTAL 0.2 mg/dL (0.2-1.0); MAGNESIUM 1.9 mg/dL (1.8-2.4); POTASSIUM 3.7 mmol/L (3.5-5.1); TOTAL PROTEIN, SERUM 7.7 g/dL (6.4-8.2)
[2017-02-27] MEDS ORDERED: TOPI25TA PO (23:30)
[2017-02-27] MEDS ORDERED: CLON2TAB PO (23:32)
[2017-02-27] MEDS ORDERED: ALPR2TAB7 PO (23:33)
--- NOTE | 2017-02-27 23:35 | NUR ---
PT IS RESTING IN BED WITH EYES CLOSED.PRN SUBUTEX IS EFFECTIVE IN REDUCING WITHDRAWAL SYMPTOMS.COWS SCORE IS 6.
[2017-02-28] VITALS: BP 135/89
--- NOTE | 2017-02-28 00:10 | NUR ---
AT MIDNIGHT V/S CHECK,PT NOTED TO BE SNORING LOUDLY.BREATHING UNEVEN AND LABORED WITH EPISODES OF APNEA. O2 SAT IS 88%.2 LITERS OF OXYGEN ADMINISTERED VIA NASAL CANULA.O2 SATURATION IMPROVED,NOW O2 SAT IS 96%.WILL CONTINUE WITH O2 VIA NASAL CANULA AND KEEP MONITORING UNTIL STABLE.
[2017-02-28] MEDS ORDERED: ACETAMINOPHEN 325 MG TABLET ONE (03:02)
--- NOTE | 2017-02-28 03:03 | NUR ---
PT C/O HEADACHE,12/23.PRN TYLENOL GIVEN ORDERED.WILL MONITOR.
[2017-02-28] MEDS: ONDANSETRON ODT 4 MG TAB.RAPDIS SL PRN ×2 (03:31→21:34)
--- NOTE | 2017-02-28 03:34 | NUR ---
PRN ZOFRAN GIVEN ORDERED FOR C/O NAUSEA.WILL MONITOR.
[2017-02-28] MEDS ORDERED: ONDANSETRON ODT 4 MG TAB.RAPDIS ONE (03:41)
[2017-02-28 04:00] VITALS: BP 142/86
--- NOTE | 2017-02-28 04:00 | NUR ---
PT'S O2 SAT IS 99% ON ROOM AIR.PT DOES NOT HAVE NASAL CANULA AT THIS TIME.C/O FEELING UNCOMFORTABLE AND REMOVED IT.BREATHING IS EVEN AND NON LABORED.PT IS STILL SNORING.
--- NOTE | 2017-02-28 04:35 | NUR ---
PRN ZOFRAN IS EFFECTIVE.PT VERBALIZES RELIEF FRO NAUSEA.NO VOMITING NOTED.
--- NOTE | 2017-02-28 06:52 | NUR ---
END OF SHIFT Pt is 21 y/o male admitted to to [facility] for ETOH/HEROIN AND BENZO dependency.Pt is alert/oriented x 4,has NKA,placed on regular diet and full code status.PMH of anxiety,depression,torn meniscus in both knees and seizure hx one time only due to withdrawals.Skin is intact,,abdomen is soft and palpable with b/s present x 4. Pt was recently discharged from [facility] on January..Pt denies ant SI/HI.Placed on seizure and fall precautions.Pt was given PRN Subutex,Benadryl,zofran and tylenol with good effect.Last COWS/CIWA=3.Pt slept intermittently for 7 hrs,fluid intake was 1210 mls,voided x 2 .BM X 1. All safety measures in place per hospital policy. Bed is locked in lowest position, side rails up x2 and padded, call light within reach. Will continue to monitor.
--- NOTE | 2017-02-28 07:15 | NUR ---
START OF SHIFT NOTE: RECEIVED PT FROM CLINICAL RESOURCE NURSE NURSE, PT IS IN STABLE CONDITION AT THIS TIME NO S/S OF PAIN OR DISCOMFORT, PT IS ADMITTED TO [facility] FOR ETOH/OPIATE/BENZO WITHDRAWAL/DEPENDENCE. PT'S LAST COWS WAS 3 AND CIWA 3. PT SLEPT FOR 7 HOURS WILL MONITOR OT FOR ANY CHANGES. AND CONTINUE TO MAKE PT FEELS COMFORTABLE DURING DETOX.
[2017-02-28 09:00] VITALS: BP 127/90
[2017-02-28] MEDS ORDERED: THIAMINE HCL 100 MG TABLET PO SCH (09:00)
[2017-02-28] MEDS ORDERED: MULTIVITAMINS,THERAPEUTIC TABLET PO SCH (09:00)
[2017-02-28] MEDS ORDERED: TUBERCULIN,PURIF.PROT.DERIV. 5 TU/0.1 ML TEST ID ONE (09:00)
[2017-02-28] MEDS ORDERED: FOLIC ACID 1 MG TABLET PO SCH (09:00)
[2017-02-28] MEDS: PHENOBARBITAL 60 MG TABLET PO SCH ×4 (09:31→20:01)
--- NOTE | 2017-02-28 11:09 | NUR ---
PRN ROBAXIN: pt with complaints of generalized body aches, pt is awaiting MD regarding medications. pt's pain level is 8/10, will re-assess pt for effectiveness
--- NOTE | 2017-02-28 11:30 | NUR ---
PRN RE-ASSESSMENT: PT STATED ROBAXIN WITH MINIMAL HELP, PT STATES HE IS SWEATING AND CANNOT NOT STAY STILL, HE VERBALIZES HE WILL WAIT FOR THE DR TO ORDER NEW MEDIATIONS.
[2017-02-28 13:41] VITALS: BP 124/77
[2017-02-28] MEDS: BUPRENORPHINE HCL 2 MG TAB.SUBL SL SCH ×3 (13:51→20:01)
[2017-02-28] MEDS: GABAPENTIN 300 MG CAPSULE PO SCH ×2 (14:29→20:02)
[2017-02-28] MEDS ORDERED: TOPIRAMATE 25 MG TABLET PO SCH (17:00)
[2017-02-28 18:04] VITALS: BP 149/95
--- NOTE | 2017-02-28 19:30 | NUR ---
END OF SHIFT NOTE: PT IS IN STABLE CONDITION AT THIS TIME NO S/S OF PAIN OR DISCOMFORT, PT WAS STARTED ON A PHENO AND SUBUTEX TAPER. PT IS VERY LIABLE, TOWARDS THE END OF THE SHIFT PT COMPLAINED OF BEING UNABLE TO URINATE. RECEIVED VERBAL ORDER TO DO BLADDER SCAN AND STARIGHT CATH IF PT IS RETAINING ABOVE 300. PT TOLERATED TAPER MEDICATIONS WITHOUT A/R. WILL ENDORSE PT FROM CREDIT ADMINISTRATION SPECIALIST NURSE.
[2017-02-28 20:00] VITALS: BP 146/97
--- NOTE | 2017-02-28 20:00 | NUR ---
Start of Shift Pt is a 21 year old male admitted for ETOH/Opiate/Benzo dependence, placed on Phenobarbital and 3 day Subutex taper. Pt reported using Etoh 750/daily x25 days, heroin 1 g/daily x25 days, Xanax 30mg/daily x25 days and Klonopin 60mg/daily x25 days. PMH: anxiety, depression, torn meniscus in both knees and seizure x1 in 2013 due to withdrawal. NKA, regular diet, fall/seizure precautions and full code. Upon assessment, pt presents with anxiety, is restless, pacing, skin flushed/clammy/sweaty, reports body aches and chills throughout body, respiration even/unlabored, denies SOB/chest pain. Medications due, Safety measures in place, call light within reach , side rails up x2, bed locked and in low position. Will continue to monitor.
[2017-02-28] MEDS ORDERED: TRAZODONE 100 MG TABLET PO SCH (21:00)
--- NOTE | 2017-02-28 21:34 | NUR ---
PRN Administration Pt reports nausea, denies episode of emesis. Zofran 4mg ODT PRN administered. Safety measures in place. Will continue to monitor.
--- NOTE | 2017-02-28 22:34 | NUR ---
PRN Reassessment Upon reassessment, pt reports relief of nausea. Safety measures in place. Will continue to monitor.
[2017-03-01] VITALS: BP 143/67
--- NOTE | 2017-03-01 | NUR ---
143/67, 111, 95% SpO2 , respirations 20, temp 98.0 CIWA/COWS deferred d/t pt sleeping Will continue to monitor.
--- NOTE | 2017-03-01 00:45 | NUR ---
Coughing noted , with fluctuations of SpO2 72% 90% Obtained order for supplemental O2. Patient is on non-rebreather with 10 LPM of O2. Pts SpO2 up at 95% after supplemental oxygen.
--- NOTE | 2017-03-01 01:10 | NUR ---
Continuous coughing noted, SpO2 unstable with non-rebreather, SpO2 fluctuating at 84% - 90%. Pulse 118. MD made aware, Cpap ordered . Settings at: Cpap 12, titrate SpO2 above 92%. Chest x-ray ordered.
--- NOTE | 2017-03-01 01:20 | NUR ---
RT up on the unit. Pt is on Cpap machine with Spo2 98%, HR 125.
--- NOTE | 2017-03-01 01:30 | NUR ---
X-ray tech on unit chest x-ray completed. Awaiting results.
--- NOTE | 2017-03-01 02:10 | NUR ---
Pt transferred to ER Unable to stabilize SpO2, HR 145. MD made aware with orders to transfer pt to ER.
--- NOTE | 2017-03-01 02:50 | NUR ---
Informed by Manager Office that patient is transferred to ICU
[2017-03-01] MEDS ORDERED: PHENOBARBITAL 60 MG TABLET PO SCH (09:00)
[2017-03-01] MEDS ORDERED: BUPRENORPHINE HCL 2 MG TAB.SUBL SL SCH (09:00)
[2017-03-01 14:08] LABS: HEPATITIS B SURFACE AG Negative (Negative)
[2017-03-02] MEDS ORDERED: PHENOBARBITAL 60 MG TABLET PO SCH (09:00)
[2017-03-03] MEDS ORDERED: PHENOBARBITAL 60 MG TABLET PO SCH (09:00)
[2017-03-03] MEDS ORDERED: BUPRENORPHINE HCL 2 MG TAB.SUBL SL SCH ×2 (09:00→15:00)
[2017-03-04] MEDS ORDERED: PHENOBARBITAL 60 MG TABLET PO SCH (09:00)
[2017-03-05] MEDS ORDERED: PHENOBARBITAL 60 MG TABLET PO SCH (09:00)
[2017-03-05] MEDS ORDERED: BUPRENORPHINE HCL 2 MG TAB.SUBL SL SCH (09:00)
[2017-03-07] MEDS ORDERED: ONDA4TAB11 SL (13:58)
[2017-03-07] MEDS ORDERED: METH-406 PO (13:58)
[2017-03-07] MEDS ORDERED: DICY20TA28 PO (13:58)
[2017-03-07] MEDS ORDERED: HYDR-3895 PO (13:58)
[2017-03-07] MEDS ORDERED: TRAZ-144 PO (13:58)
[2017-03-07] MEDS ORDERED: CLON0.1T14 PO (13:58)
[2017-03-07] MEDS ORDERED: IBUP-1955 PO (13:58)
== END 2017-03-01 02:10 | disposition short-term general hospital (02) | DRG 895 ==
LOC: SRC 20:13
PROVIDERS: ADMIT Internal Medicine; ATTEND Internal Medicine
PROC: HZ2ZZZZ Detoxification Services for Substance Abuse Treatment (ICD-10-PCS; principal; 2017-02-27)
PROC: HZ41ZZZ Group Counseling for Substance Abuse Treatment, Behavioral (ICD-10-PCS; 2017-02-28)
PROC: 5A09357 Assistance with Respiratory Ventilation, Less than 24 Consecutive Hours, Continuous Positive Airway Pressure (ICD-10-PCS; 2017-03-01)
DX: F10.239 Alcohol dependence with withdrawal, unspecified (principal); J96.01 Acute respiratory failure with hypoxia; F11.23 Opioid dependence with withdrawal; Y90.9 Presence of alcohol in blood, level not specified; F13.230 Sedative, hypnotic or anxiolytic dependence with withdrawal, uncomplicated; Z81.1 Family history of alcohol abuse and dependence; Z81.8 Family history of other mental and behavioral disorders; G47.00 Insomnia, unspecified; Z72.0 Tobacco use; Z65.3 Problems related to other legal circumstances; F31.9 Bipolar disorder, unspecified; T17.918A Gastric contents in respiratory tract, part unspecified causing other injury, initial encounter; X58.XXXA Exposure to other specified factors, initial encounter; Y92.89 Other specified places as the place of occurrence of the external cause; F41.9 Anxiety disorder, unspecified
CPT/HCPCS: 36415; 71010; 80307; 80346; 80349; 80361; 83690; 83735; 84443; 85025; 86592; 86705; 86803; 87340; 87806; A4663; G0480; J3411; J8499; Q0162; Q0163

== ENCOUNTER 2017-03-01 02:17 | Inpatient (IN) | payer BC, OTHER ==
[2017-03-01] VITALS (22 sets, daily range): BP systolic 100–175; BP diastolic 58–124
[~2017-03-01] VITALS: Ht 172.7 cm; Wt 122.5 kg
[~2017-03-01 02:17] MED LIST changes: +ALPR2TAB7 PO; -BUPR-96 PO; +CLON2TAB PO; -RISP0.5T5 PO; +TOPI25TA PO
[2017-03-01] MEDS ORDERED: ALBUTEROL SULFATE 2.5 MG/3 ML NEBU ONE (02:29)
[2017-03-01] MEDS ORDERED: IPRATROPIUM BROMIDE 0.5 MG/2.5 ML NEBU ONE (02:29)
[2017-03-01] MEDS ORDERED: FUROSEMIDE 20 MG/2 ML VIAL IV ONE (02:30)
[2017-03-01] MEDS ORDERED: ALBUTEROL SULFATE 2.5 MG/3 ML NEBU NEB ONE (02:30)
[2017-03-01] MEDS ORDERED: PIPERACILLIN SODIUM/TAZOBACTAM 3.375 G in IV DEXTROSE 5% 50 ML IV ONE (02:30)
[2017-03-01] MEDS ORDERED: IPRATROPIUM BROMIDE 0.5 MG/2.5 ML NEBU NEB ONE (02:30)
--- NOTE | 2017-03-01 02:35 | NUR ---
Patient brought in by [facility] staff member on hospital bed for SOB. Patient upin arrival on a non rebreather 15 liters of 02 satting at 100. patient only arousable to painful stimuli. unable to answer question
[2017-03-01 02:41] LABS: ABG BASE EXCESS -3.3 mmol/L; ABG PCO2 64.3 mmHg (35.0-45.0); ABG PH 7.224 (7.350-7.450); ABG PO2 87.7 mmHg (75.0-100.0); ABG SITE LEFT RADIAL; COHb 3.7 % (0.5-1.5); MetHb 0.3 % (0.0-1.5); O2Hb 92.4 % (94.0-97.0)
[2017-03-01] MEDS ORDERED: FUROSEMIDE 20 MG/2 ML VIAL ONE (02:45)
[2017-03-01] MEDS ORDERED: PIPERACILLIN/TAZOBACTAM/D5W 50 ML IV ONE (02:46)
--- NOTE | 2017-03-01 03:04 | NUR ---
PT WAS TAKING 30MG XANAX DAILY, 60MG KLONOPIN , ALCOHOL,HEROIN,COCAINE,
--- NOTE | 2017-03-01 03:10 | NUR ---
Patient arousable,able to answer question
[2017-03-01 03:11] LABS: BASOPHILS # (AUTO) 0.2 K/uL (0.0-8.0); EOSINOPHILS # (AUTO) 0.1 K/uL (0.0-0.7); EOSINOPHILS % (AUTO) 0.5 % (0.0-7.0); HEMATOCRIT 47.6 % (40-50); HEMOGLOBIN 15.7 G/DL (14.0-18.0); LYMPHOCYTES % (AUTO) 8.1 % (20.5-51.5); MEAN CORPUSCULAR HEMOGLOBIN 28.7 UUG (27.0-31.0); MEAN CORPUSCULAR HGB CONC 33 g/dL (32.0-37.0); MEAN CORPUSCULAR VOLUME 87.1 FL (82.0-92.0); MONOCYTES # (AUTO) 0.9 K/UL (0.1-1.30); MONOCYTES % (AUTO) 3.5 % (0.0-11.0); NEUTROPHILS # (AUTO) 21.7 K/UL (1.8-8.9); NEUTROPHILS % (AUTO) 86.9 % (38.5-71.5); PLATELET COUNT (AUTO) 193 K/UL (150-450); RED BLOOD CELL COUNT(AUTO) 5.47 MIL/UL (4.7-6.1); WHITE BLOOD COUNT (AUTO) 24.9 K/UL (4.0-11.2)
--- NOTE | 2017-03-01 03:15 | NUR ---
Pt placed on BIPAP with settings of IPAP 15, EPAP 5, rate of 18, FiO2 100% per Dr. Hughes's order. Protecta gel placed to protect skin from BIPAP mask. Pt tolerating BIPAP settings and mask well at this time. SpO2 100%. Will continue to monitor pt throughout shift.
[2017-03-01 03:20] LABS: BILIRUBIN,DIRECT 0.1 mg/dL (0.0-0.2); BILIRUBIN,TOTAL 0.3 mg/dL (0.2-1.0); CREATININE 1.1 mg/dL (0.6-1.3); TOTAL PROTEIN, SERUM 7.9 g/dL (6.4-8.2)
[2017-03-01 03:23] LABS: *BILIRUBIN,URIN NEGATIVE (NEGATIVE); *BLOOD, URINE NEGATIVE (NEGATIVE); *CLARITY,URINE CLEAR (CLEAR); *COLOR,URINE STRAW (YELLOW); *KETONES,URINE NEGATIVE (NEGATIVE); *PROTEIN,URINE NEGATIVE (NEGATIVE); *UROBILINOGEN,URINE 0.2 E.U./dl (NORMAL); LEUKOCYTE ESTERASE ,URINE NEGATIVE (NEGATIVE); NITRITE, URINE NEGATIVE (NEGATIVE); UGLUCOSE NEGATIVE (NEGATIVE)
[2017-03-01 03:32] LABS: BACTERIA,URINE NONE SEEN /HPF (NONE SEEN); RBC,URINE NONE SEEN /HPF (0-3); SQUAMOUS EPITHELIAL CELL,UR FEW /HPF (NONE SEEN); WBC,URINE 0-3 /HPF (0-3)
--- NOTE | 2017-03-01 03:43 | NUR ---
Call placed to Elvis leigh N.P. transmission assembler
[2017-03-01] MEDS ORDERED: LEVOFLOXACIN 750MG/D5W 750 MG in PREMIXED 1 EACH IV SCH (03:45)
[2017-03-01 03:49] LABS: BAND % (MANUAL) 12 % (0-10); LYMPHOCYTES % (MANUAL) 6 % (20-40); MONOCYTES % (MANUAL) 5 % (2-10); NEUTROPHILS % (MANUAL) 77 % (42-75)
[2017-03-01] MEDS ORDERED: LEVOFLOXACIN 750MG/D5W 150 ML IV ONE (03:55)
--- NOTE | 2017-03-01 03:55 | NUR ---
TREVA BOSE EVAL PATIENT
[2017-03-01] MEDS ORDERED: NOREPINEPHRINE BITARTRATE 8 MG in IV DEXTROSE 5% 500 ML IV PRN (04:00)
[2017-03-01] MEDS ORDERED: ENOXAPARIN SODIUM 40 MG/0.4 ML DISP.SYRIN SQ SCH (04:00)
[2017-03-01] MEDS ORDERED: ONDANSETRON 4 MG/2 ML VIAL IV PRN (04:00)
[2017-03-01] MEDS ORDERED: IV NS 1000 ML 1,000 ML IV PRN (04:00)
[2017-03-01 04:09] LABS: ABG BASE EXCESS -1.2 mmol/L; ABG HCO3 26.2 mmol/L; ABG PCO2 54.2 mmHg (35.0-45.0); ABG PH 7.302 (7.350-7.450); ABG PO2 321.7 mmHg (75.0-100.0); ABG SITE RIGHT RADIAL; ABG TOTAL HEMOGLOBIN 15.5 G/dL (13.5-18.0); COHb 2.7 % (0.5-1.5); MetHb 0.4 % (0.0-1.5); O2Hb 96.7 % (94.0-97.0); VENT MODE BIPAP 15/5
[2017-03-01] MEDS ORDERED: Z GUARD REMEDY PASTE 57 GM TUBE TOP PRN (04:15)
--- NOTE | 2017-03-01 04:15 | NUR ---
Per ABG results, titrated FIO2 to 50%. SpO2 100%. Dr. Hughes notified and aware.
[2017-03-01] MEDS ORDERED: VANCOMYCIN IV 1 G in PREMIXED 0 EACH IV ONE (04:30)
--- NOTE | 2017-03-01 04:50 | NUR ---
TRANSFERED TO 2ND FLOOR CCU VIA [facility]
--- NOTE | 2017-03-01 04:55 | NUR ---
Pt transported to CCU bed 2, no complications or distress during transport. Pt placed back on BIPAP with same settings. Pt tolerating BIPAP well, states mask feels comfortable at this time. Saturation is 100%.
[2017-03-01 05:01] LABS: MAGNESIUM 1.8 mg/dL (1.8-2.4); PHOSPHOROUS 5.5 mg/dL (2.5-4.9)
--- NOTE | 2017-03-01 05:05 | NUR ---
Admitted to Room CCU-2 via bed from ER accompanied by ER staff and RTs. Adm. Dx: Respiratory Failure under the services of [facility]. Pt woke up upon arrival to CCU wondering what happened. Ambulated with supervision to room. Routine CCU admission care rendered. Initially pt anxious and demanding, not wanting to be in unit. Reality orientation done, made comfortable. Plans of care and events prompting admission explained. Please see CCU admission profile and clinical data. Resumed on BiPap therapy. IVF therapy initiated.
[2017-03-01] MEDS ORDERED: VANCOMYCIN IV 200 ML ONE (05:52)
[2017-03-01] MEDS ORDERED: PIPERACILLIN/TAZOBACTAM/D5W 3.375 G in PREMIXED 1 EACH IV SCH ×2 (06:00→09:00)
--- NOTE | 2017-03-01 06:00 | NUR ---
Zosyn timed for 0600 not administered due to pt just received same dose in ER at 0319.
--- NOTE | 2017-03-01 06:55 | NUR ---
Remains asleep, is comfortable. Please see CCU flowsheet for trends and clinical data. INFORMATION TECHNOLOGY TEACHER reports family was notified of transfer.
--- NOTE | 2017-03-01 07:20 | NUR ---
bedside report received and patient on fever of 101.4 MD called to be notified.
[2017-03-01] MEDS ORDERED: ACETAMINOPHEN 650 MG SUPP.RECT RC PRN (07:45)
--- NOTE | 2017-03-01 07:50 | NUR ---
Dr. Clark called to be notified of both fever of 101.4 and sbp above 170's. Orders received see orders.
[2017-03-01] MEDS ORDERED: CLONIDINE HCL 0.2 MG TABLET PO PRN (08:00)
--- NOTE | 2017-03-01 08:12 | NUR ---
Patient medicated for fever and also explained the need to insert NG tube. Patient refusing NG tube at this time stating hell drink the medications, RT present as witness.
[2017-03-01] MEDS ORDERED: LEVALBUTEROL HCL 1.25 MG/0.5 ML NEB NEB PRN (08:45)
[2017-03-01] MEDS ORDERED: ACETAMINOPHEN 325 MG TABLET PO PRN (08:45)
--- NOTE | 2017-03-01 08:59 | NUR ---
as reported by night worker rn patient unable to void since 0500. refuse moulton insertion this morning but agree to have one after attempting to void on his own.
[2017-03-01] MEDS ORDERED: PANTOPRAZOLE SODIUM 40 MG VIAL IV SCH (09:00)
--- NOTE | 2017-03-01 09:12 | NUR ---
Shin catheter in and a total of 700 cc obtained.
--- NOTE | 2017-03-01 09:13 | NUR ---
At this time patient off BIPAP and placed on NC 4 liter.
--- NOTE | 2017-03-01 09:15 | NUR ---
At this time patient off BIPAP and place on NC 4 liter done by RT Vences. and tolerating it well saturation above 95%.
[2017-03-01] MEDS: IV 1/2NS 1000 ML 1,000 ML IV PRN (09:21)
[2017-03-01] MEDS: NICOTINE 21 MG/24HR PATCH TD SCH (09:43)
[2017-03-01] MEDS: LORAZEPAM 2 MG/1 ML VIAL IV SCH ×5 (09:43→23:58)
[2017-03-01] MEDS: THIAMINE HCL 100 MG TABLET PO SCH (09:43)
[2017-03-01] MEDS: MULTIVITAMINS,THERAPEUTIC TABLET PO SCH (09:43)
[2017-03-01] MEDS: FOLIC ACID 1 MG TABLET PO SCH (09:43)
[2017-03-01] MEDS: VANCOMYCIN IV 2,000 MG in IV DEXTROSE 5% 500 ML IV SCH ×2 (10:32→21:11)
--- NOTE | 2017-03-01 11:06 | NUR ---
Dr. Hernandez in the unit to assess patient, and currently talking to patient, report given.
--- NOTE | 2017-03-01 11:12 | NUR ---
As reported oxygen lowered to 2 liters saturation remains above 98%.
[2017-03-01] MEDS ORDERED: ALBUTEROL SULFATE 2.5 MG/3 ML NEBU NEB PRN (11:30)
--- NOTE | 2017-03-01 11:51 | NUR ---
Dr. Sandy neurologist services in the unit to examine patient; report given.
--- NOTE | 2017-03-01 11:52 | NUR ---
At this time a call to Dr. Clark to notify patient's behavior towards not getting his detox medication. Patient educated over plan of care but seems not to understand the concepts at this time. Awaiting Drs. lundberg.
[2017-03-01] MEDS: PIPERACILLIN/TAZOBACTAM/D5W 3.375 G in PREMIXED 1 EACH IV SCH ×2 (12:16→18:10)
--- NOTE | 2017-03-01 13:36 | NUR ---
Clinical Pharmacy Note: Vancomycin Dosing per Pharmacy Subjective: Vancomycin IV to start on this 21 YO male patient for Leukocytosis, bandemia, r/o asp pna 9per ER note) Patient received vancomycin 1gm IVPB today at 0500 Objective: BUN 12/Scr 1.1 WBC 24.9 Temperature 101.4 ht 5'8'' wt 270 lb (confirmed with RN) Assessment/Plan: Will start vancomycin 2000mg IVPB Q11hr for a predicted vancomycin steady state trough level of 15.8 mcg/ml. 1st dose is due today at 1100. Will draw a vancomycin trough level prior to the 4th dose of vancomycin (not ordered yet). Will monitor renal function and adjust vancomycin dose, if needed, should renal function change significantly. Will follow daily.
--- NOTE | 2017-03-01 16:36 | NUR ---
a call to Dr. Clark to notify him of patient's unhappiness and demanding to have both pain and phenobarbital medications. Also a call to nursing quarry supervisor to come up and speak with patient, as requested by patient.
--- NOTE | 2017-03-01 16:54 | NUR ---
one episode of vomiting with some blood clots noted. Dr. Clark notified.
--- NOTE | 2017-03-01 19:01 | NUR ---
Dr. Platt in the unit to see patient; full report given.
--- NOTE | 2017-03-01 19:15 | NUR ---
Seen and evaluated by Dr. Tyler, new orders to be written. Pt awake, alert, appears anxious and demanding. Constantly on phone or flipping TV channels. Spent sometime talking to pt about plans of care and review of his meds. States wanted moulton cath out for now and be put back in 10 minutes. Explained purpose of moulton and reasons why it's not good for device to be DC'd and replaced right away. Moulton patent and continues to drain large amounts of urine.
[2017-03-01] MEDS ORDERED: BISACODYL 10 MG SUPP.RECT RC PRN (19:45)
[2017-03-01] MEDS ORDERED: LORAZEPAM 2 MG/1 ML VIAL IV PRN (19:45)
--- NOTE | 2017-03-01 21:30 | NUR ---
Sleeping at periodic intervals. VS and rhythm stable. Aspiration precautions observed, HOB up at all times. Seizure precautions maintained. Please see CCU flowsheet for full assessment and clinical data.
[2017-03-01] MEDS ORDERED: IBUPROFEN 200 MG TABLET ONE (22:30)
--- NOTE | 2017-03-01 22:30 | NUR ---
OOB to commode, steady gait. Constipated, given Dulcolax supp. earlier. PM care rendered. Pt appreciative. Continues to sleep at periodic intervals.
[2017-03-01] MEDS: IBUPROFEN 200 MG TABLET PO PRN (22:57)
[2017-03-02] VITALS (10 sets, daily range): BP systolic 108–147; BP diastolic 61–98
[2017-03-02] MEDS: IV 1/2NS 1000 ML 1,000 ML IV PRN (01:42)
--- NOTE | 2017-03-02 02:00 | NUR ---
Now wide awake. Had large BM on commode, kept clean and dry. Supervised ambulation in room, tolerated well.
--- NOTE | 2017-03-02 02:30 | NUR ---
Dumped 1750 clear pale yellow urine while OOB. Also able to expectorate secretions for sputum C&S and Gram Stain.
[2017-03-02] MEDS: PIPERACILLIN/TAZOBACTAM/D5W 3.375 G in PREMIXED 1 EACH IV SCH ×3 (02:40→18:27)
[2017-03-02] MEDS: LORAZEPAM 2 MG/1 ML VIAL IV SCH ×5 (04:01→20:00)
[2017-03-02 05:10] LABS: BASOPHILS # (AUTO) 0.1 K/uL (0.0-8.0); EOSINOPHILS # (AUTO) 0.1 K/uL (0.0-0.7); EOSINOPHILS % (AUTO) 1.2 % (0.0-7.0); HEMATOCRIT 41.3 % (40-50); HEMOGLOBIN 13.9 G/DL (14.0-18.0); LYMPHOCYTES # (AUTO) 1.8 K/UL (0.8-4.8); LYMPHOCYTES % (AUTO) 18.9 % (20.5-51.5); MEAN CORPUSCULAR HEMOGLOBIN 29.6 UUG (27.0-31.0); MEAN CORPUSCULAR HGB CONC 34 g/dL (32.0-37.0); MEAN CORPUSCULAR VOLUME 87.7 FL (82.0-92.0); MONOCYTES # (AUTO) 0.8 K/UL (0.1-1.30); MONOCYTES % (AUTO) 8.3 % (0.0-11.0); NEUTROPHILS # (AUTO) 6.9 K/UL (1.8-8.9); NEUTROPHILS % (AUTO) 70.6 % (38.5-71.5); PLATELET COUNT (AUTO) 174 K/UL (150-450); RED BLOOD CELL COUNT(AUTO) 4.71 MIL/UL (4.7-6.1); WHITE BLOOD COUNT (AUTO) 9.7 K/UL (4.0-11.2)
[2017-03-02 05:13] LABS: CREATININE 0.9 mg/dL (0.6-1.3); POTASSIUM 3.3 mmol/L (3.5-5.1)
[2017-03-02 05:16] LABS: MAGNESIUM 1.7 mg/dL (1.8-2.4); PHOSPHOROUS 3.3 mg/dL (2.5-4.9)
--- NOTE | 2017-03-02 06:00 | NUR ---
Continent of total 3 stools this shift. Anxious about whereabouts of the rest of personal belongings. [facility] called and was told all belongings are in a safe and pt informed. Expressed preference to wear street clothes. Very verbal about family dynamics. Tolerates activities in room; spent sometime on bedside chair and commode.
--- NOTE | 2017-03-02 06:45 | NUR ---
Moulton cath DC'd per request. Aware moulton dumping more urine when out of bed. Please see CCU flowsheet for trends and clinical data.
[2017-03-02] MEDS ORDERED: PANTOPRAZOLE SODIUM 40 MG TABLET.DR PO SCH (07:00)
--- NOTE | 2017-03-02 07:31 | NUR ---
Patient received in room alert, awake, walking in room used the bedside commode and had a BM. SR on bedside monitor. Respirations even and unlabored. Denied pain at this time. States feeling anxious at this time. Frequent reassurance needed. Continues on close monitor.
--- NOTE | 2017-03-02 07:46 | NUR ---
Message left to mergers and acquisitions attorney update diet. Patient reports no N/V.
[2017-03-02] MEDS: NICOTINE 21 MG/24HR PATCH TD SCH (08:15)
[2017-03-02] MEDS: MULTIVITAMINS,THERAPEUTIC TABLET PO SCH (08:15)
[2017-03-02] MEDS: FOLIC ACID 1 MG TABLET PO SCH (08:15)
[2017-03-02] MEDS: THIAMINE HCL 100 MG TABLET PO SCH (08:15)
[2017-03-02] MEDS: IBUPROFEN 200 MG TABLET PO PRN ×2 (08:21→17:09)
[2017-03-02] MEDS ORDERED: ENOXAPARIN SODIUM 40 MG/0.4 ML DISP.SYRIN SQ SCH (09:00)
[2017-03-02 09:16] LABS: ABG BASE EXCESS 0.7 mmol/L; ABG HCO3 26.6 mmol/L; ABG PCO2 47.3 mmHg (35.0-45.0); ABG PH 7.368 (7.350-7.450); ABG PO2 64.7 mmHg (75.0-100.0); ABG SITE RIGHT RADIAL; ABG TOTAL HEMOGLOBIN 14.3 G/dL (13.5-18.0); MetHb 0.2 % (0.0-1.5); O2Hb 90.4 % (94.0-97.0); VENT MODE RA
[2017-03-02] MEDS: VANCOMYCIN IV 2,000 MG in IV DEXTROSE 5% 500 ML IV SCH ×2 (09:51→20:00)
--- NOTE | 2017-03-02 12:02 | NUR ---
Patient seen by dr. Hernandez. Detailed report given.
[2017-03-02] MEDS ORDERED: POTASSIUM CHLORIDE 20 MEQ TAB.PRT.SR PO ONE (14:30)
[2017-03-02] MEDS: MAGNESIUM SULFATE/D5W 100 ML IV SCH ×2 (14:50→15:48)
--- NOTE | 2017-03-02 16:38 | NUR ---
Clinical Pharmacy Note: Vancomycin Dosing per Pharmacy Subjective: Vancomycin IV to continue on this 21 YO male patient for Leukocytosis, bandemia, r/o asp pna 9per ER note) Patient received vancomycin 1gm IVPB today at 0500 Objective: BUN 7/Scr 0.9 WBC 9.7 Temperature 98.6 ht 5'8'' wt 270 lb (confirmed with RN) Assessment/Plan: Will continue vancomycin 2000mg IVPB Q11hr for a predicted vancomycin steady state trough level of 15.8 mcg/ml. Will draw a vancomycin trough level prior to the 4th dose of vancomycin (ordered tonight at 1930). Will monitor renal function and adjust vancomycin dose, if needed, should renal function change significantly. Will follow daily. Addendum: 03/02/17 at 2020 by MAIKOL CHISHOLM VANCOMYCIN TROUGH 14.5 CONTINUE SAME DOSE.
--- NOTE | 2017-03-02 19:36 | NUR ---
Discharge orders received. Discharge paperwork signed by patient and witnessed. Discharge teaching provided, patient verbalized understanding. Copies of paperwork provided to patient and originals placed in paper chart. [facility].
--- NOTE | 2017-03-02 20:00 | NUR ---
Report given to Alexander Shah RN.
--- NOTE | 2017-03-02 21:06 | NUR ---
1999 Medications not given. Patient discharged. No IV site. Pending [facility] staff for pickle solution maker.
--- NOTE | 2017-03-02 21:31 | NUR ---
Patient left unit to [facility] accompanied by [facility] staff
== END 2017-03-02 21:25 | DRG 871 ==
LOC: ER 02:18 → CCU 04:29
PROVIDERS: ADMIT Nurse Practitioner Acute Care; ATTEND Nurse Practitioner Acute Care
PROC: 5A09357 Assistance with Respiratory Ventilation, Less than 24 Consecutive Hours, Continuous Positive Airway Pressure (ICD-10-PCS; principal; 2017-03-01)
DX: A41.9 Sepsis, unspecified organism (principal); J69.0 Pneumonitis due to inhalation of food and vomit; J96.01 Acute respiratory failure with hypoxia; J96.02 Acute respiratory failure with hypercapnia; G92 Toxic encephalopathy; F19.20 Other psychoactive substance dependence, uncomplicated; F11.20 Opioid dependence, uncomplicated; E87.2 Acidosis; Z68.41 Body mass index [BMI] 40.0-44.9, adult; F10.239 Alcohol dependence with withdrawal, unspecified; E66.2 Morbid (severe) obesity with alveolar hypoventilation; R65.20 Severe sepsis without septic shock; Z68.39 Body mass index [BMI] 39.0-39.9, adult; D72.825 Bandemia; G40.909 Epilepsy, unspecified, not intractable, without status epilepticus; F41.9 Anxiety disorder, unspecified; F32.9 Major depressive disorder, single episode, unspecified; F14.10 Cocaine abuse, uncomplicated; R73.9 Hyperglycemia, unspecified; Z79.899 Other long term (current) drug therapy; F10.229 Alcohol dependence with intoxication, unspecified; I51.7 Cardiomegaly; Z72.0 Tobacco use
CPT/HCPCS: 36415; 36600; 70030-TC; 70450; 71010; 83605; 83735; 84100; 85025; 85730; 87040; 87070; 87086; 93005; 93307; 94640; 94660; 94664; A4663; J1650; J1940; J1956; J2060; J2405; J2543; J3370; J3475; J3490; J3590; J7030; J7060

== ENCOUNTER 2017-03-02 22:01 | Inpatient (IN) | payer BC, OTHER ==
[~2017-03-02] VITALS: Ht 172.7 cm; Wt 117.9 kg
[2017-03-02] MEDS ORDERED: THIAMINE HCL 200 MG/2 ML VIAL IM ONE (22:30)
[2017-03-02] MEDS ORDERED: LORAZEPAM 2 MG/1 ML VIAL IM PRN (22:30)
[2017-03-02] MEDS ORDERED: diphenhydrAMINE 50 MG CAPSULE PO PRN (22:30)
[2017-03-02] MEDS ORDERED: BUPRENORPHINE HCL 2 MG TAB.SUBL SL PRN (22:30)
[2017-03-02] MEDS ORDERED: DICYCLOMINE HCL 20 MG TABLET PO PRN (22:30)
[2017-03-02] MEDS ORDERED: MAGNESIUM HYDROXIDE 30 ML LIQUID UDC PO PRN (22:30)
[2017-03-02] MEDS ORDERED: IBUPROFEN 600 MG TABLET PO PRN (22:30)
[2017-03-02] MEDS ORDERED: MIRALAX 17 GM POWD.PACK PO PRN (22:30)
[2017-03-02] MEDS ORDERED: MAG HYDROX/AL HYDROX/SIMETH 30 ML LIQUID UDC PO PRN (22:30)
[2017-03-02] MEDS ORDERED: LORAZEPAM 1 MG TABLET PO PRN ×2 (22:30)
[2017-03-02] MEDS ORDERED: LOPERAMIDE HCL 2 MG CAPSULE PO PRN ×2 (22:30)
[2017-03-02] MEDS ORDERED: LORAZEPAM 1 MG TABLET PO ONE (23:00)
[2017-03-02] MEDS ORDERED: BUPRENORPHINE HCL 2 MG TAB.SUBL SL ONE ×2 (23:00→23:27)
[2017-03-02 23:12] LABS: *AMPHETAMINE, URINE NEGATIVE (NEGATIVE); *BARBITURATE, URINE POSITIVE (NEGATIVE); *CANNABINOID, URINE POSITIVE (NEGATIVE); *COCCAINE, URINE NEGATIVE (NEGATIVE); *OPIATE, URINE NEGATIVE (NEGATIVE); *PHENCYCLIDINE SCREEN,URINE NEGATIVE (NEGATIVE)
[2017-03-02 23:17] LABS: BASOPHILS % (AUTO) 0.6 % (0.0-2.0); EOSINOPHILS # (AUTO) 0.1 K/uL (0.0-0.7); EOSINOPHILS % (AUTO) 1.8 % (0.0-7.0); HEMATOCRIT 42.9 % (40-50); HEMOGLOBIN 14.2 G/DL (14.0-18.0); LYMPHOCYTES # (AUTO) 1.7 K/UL (0.8-4.8); LYMPHOCYTES % (AUTO) 20.6 % (20.5-51.5); MEAN CORPUSCULAR HEMOGLOBIN 28.5 UUG (27.0-31.0); MEAN CORPUSCULAR HGB CONC 33 g/dL (32.0-37.0); MEAN CORPUSCULAR VOLUME 86.1 FL (82.0-92.0); MONOCYTES # (AUTO) 0.7 K/UL (0.1-1.30); MONOCYTES % (AUTO) 8.9 % (0.0-11.0); NEUTROPHILS # (AUTO) 5.7 K/UL (1.8-8.9); NEUTROPHILS % (AUTO) 68.1 % (38.5-71.5); PLATELET COUNT (AUTO) 171 K/UL (150-450); RED BLOOD CELL COUNT(AUTO) 4.99 MIL/UL (4.7-6.1); WHITE BLOOD COUNT (AUTO) 8.2 K/UL (4.0-11.2)
[2017-03-02 23:18] LABS: ETHANOL < 3 MG/DL (0-0)
[2017-03-02] MEDS ORDERED: LORAZEPAM 1 MG TABLET ONE (23:27)
[2017-03-02 23:29] LABS: ALANINE AMINOTRANSFERASE 20 U/L (16-63); ALKALINE PHOSPHATASE 49 U/L (50-136); ASPARTATE AMINOTRANSFERASE 13 U/L (15-37); BILIRUBIN,TOTAL 0.5 mg/dL (0.2-1.0); CARBON DIOXIDE 28 mmol/L (21-32); CHLORIDE 100 mmol/L (98-107); CREATININE 0.9 mg/dL (0.6-1.3); GLUCOSE 105 mg/dL (74-106); MAGNESIUM 2.2 mg/dL (1.8-2.4); POTASSIUM 3.6 mmol/L (3.5-5.1); TOTAL PROTEIN, SERUM 7.4 g/dL (6.4-8.2); UREA NITROGEN, BLOOD 8 mg/dL (7-18)
--- NOTE | 2017-03-02 23:30 | NUR ---
ADMISSION NOTE V/S :- UO=654/92,HR=92,T=97.5,R=18,O2=97% HT-5'8".WT-260 LBS ALLERGIES-NKA Admitting 21 y/o male to [facility] for ETOH/HEROIN AND BENZO dependency,under the care of Dr Platt. Pt was initially admitted on 02-27-17.He developed respiratory symptoms on early 03-01-17,leading to respiratory failure with traces of pneumonia and had to be admitted to CCU.He is now medically cleared by CCU to be admitted to [facility] detox unit for medically supervised detox. Pt is alert/oriented x 4,has NKA,placed on regular diet and full code status.PMH of anxiety,depression,torn meniscus in both knees and seizure hx one time only in 2013 due to withdrawals.Pt was recently discharged from [facility] on January.He stayed sober for 1 day only and relapsed.Pt lives at home with his family but stated he got kicked out of his house d/t his substance use disorder,he is homeless at this time.Mood is sad and depressed.Pt denies any SI/HI.Placed on seizure and fall precautions.Pt does not have a PCP.Said he has been in detox several times,unable to give details at this time.Upon admission,COWS=7,CIWA=5.Skin is intact,breathing is even and non labored,abdomen is soft and palpable with b/s present x 4. has already assessed Pt and medications are ordered.Patient has been oriented to unit, room, and staff. All safety measures in place per hospital policy. Bed is locked in lowest position, side rails up x2 and padded, call light within reach. Will continue to monitor. Substance Abuse: ETOH - 750 mls daily for 25 days, last drank on 02/27/17 XANAX - 30 mg daily for 25 days,last taken 10 mgs on 02-27-17 KLONOPIN - 60 MG daily for 25 days,last taken 10 mg on 02-27-17 HEROIN - 1 GRAM every other day,last used on 02-27-17 DETOX HISTORY [facility] ABLE TO CHANGE [facility]
[2017-03-03] VITALS: BP 131/80
[2017-03-03] MEDS: ONDANSETRON ODT 4 MG TAB.RAPDIS SL PRN (00:10)
[2017-03-03] MEDS ORDERED: ONDANSETRON ODT 4 MG TAB.RAPDIS ONE (00:22)
[2017-03-03] MEDS: ONDANSETRON 4 MG/2 ML VIAL IM PRN ×2 (01:24→22:40)
--- NOTE | 2017-03-03 01:24 | NUR ---
PRN ZOFRAN IM GIVEN ORDERED FOR N/V X 1. WILL MONITOR.
[2017-03-03] MEDS ORDERED: ONDANSETRON 4 MG/2 ML VIAL ONE (01:30)
--- NOTE | 2017-03-03 01:54 | NUR ---
PRN F/U ZOFRAN IS EFFECTIVE.N/V CEASED.PT IS SLEEPING IN BED.BREATHING IS EVEN AND NON LABORED,NO S/S OF DISTRESS NOTED,WILL BE MONITORED FOR SAFETY.
[2017-03-03 04:00] VITALS: BP 108/66
--- NOTE | 2017-03-03 07:04 | NUR ---
END OF SHIFT Pt is 21 y/o male to [facility] for ETOH/HEROIN AND BENZO dependency,under the care of Dr Platt.Pt is alert/oriented x 4,has NKA,placed on regular diet and full code status.PMH of anxiety,depression,torn meniscus in both knees and seizure hx one time only in 2013 due to withdrawals.time.Pt denies any SI/HI.Placed on seizure and fall precautions.Pt does not have a PCP.Last COWS=3,CIWA=3.Skin is intact,breathing is even and non labored. has already assessed Pt and medications are ordered.Pt to be started on 4 day modified Ativan and Subutex taper this morning.MRSA swab test was negative.Pt slept 5 hrs; PRN Zofran given for N/V with good effect.fluid intake was 355 mls,voided x 1.PO fluid encouraged.All safety measures in place per hospital policy. Bed is locked in lowest position, side rails up x2 and padded, call light within reach. Will continue to monitor.
--- NOTE | 2017-03-03 07:35 | NUR ---
Start of Shift Received pt from night nurse. Pt is a 21 year old male admitted on 02/1817 for Heroin, ETOH and Benzodiazepine detoxification. Pt was originally admitted to [facility] on 02/27/17, and was transferred to CCU 03/01/17, for respiratory failure and some traces of pneumonia. Pt was medically cleared to return on 03/01/17 and has been re-admitted for medically supervised detoxification. Pt has NKA, is a full code and is on a regular diet. PMH of anxiety, depression, and torn meniscus in bi-lateral knees. Pt has a history of 1 seizure in 2013, related to withdrawal symptoms. Pt will be started on a modified, 4 day Ativan and 4 modified 4 day Subutex taper. Skin is intact. Pt was administered Zofran x2 due to emesis x1, medication was effective per pt. Pt's last COWS of 3 and CIWA of 3 were recorded at 0400. Director Inbound Sales encounters pt in hallway, pt is dressed in street clothing and is A/O x4, calm and cooperative with a flat affect and depressed mood. Pt complains of moderate withdrawal symptoms. Bed in low position with wheels locked and call light within reach. All safety measures in place per hospital policy. Will continue to monitor, support and encourage according to plan of care.
[2017-03-03] MEDS ORDERED: QUETIAPINE FUMARATE 25 MG TABLET PO PRN (08:30)
[2017-03-03 08:42] VITALS: BP 121/59
[2017-03-03] MEDS ORDERED: diphenhydrAMINE 50 MG CAPSULE PO PRN (08:45)
[2017-03-03] MEDS ORDERED: TUBERCULIN,PURIF.PROT.DERIV. 5 TU/0.1 ML TEST ID ONE (09:00)
[2017-03-03] MEDS: THIAMINE HCL 100 MG TABLET PO SCH (09:28)
[2017-03-03] MEDS: GABAPENTIN 300 MG CAPSULE PO SCH ×3 (09:28→21:06)
[2017-03-03] MEDS: LORAZEPAM 1 MG TABLET PO SCH ×3 (09:28→21:06)
[2017-03-03] MEDS: MULTIVITAMINS,THERAPEUTIC TABLET PO SCH (09:28)
[2017-03-03] MEDS: FOLIC ACID 1 MG TABLET PO SCH (09:28)
[2017-03-03] MEDS: DOCUSATE SODIUM 250 MG CAPSULE PO SCH (09:28)
[2017-03-03] MEDS: BUPRENORPHINE HCL 2 MG TAB.SUBL SL SCH ×3 (09:29→21:07)
--- NOTE | 2017-03-03 09:43 | NUR ---
PPD Non-Admin Pt was a transfer from CCU and had Chest X-ray performed while a pt on that floor. Dr. Platt and science writer discussed the need for a skin PPD test, in pt's room and it was decided by MD PPD test was needed d/t negative chest X-rays. Vehicle Care Specialist non-administered scheduled PPD test. Will continue to monitor, support and encourage according to plan of care.
--- NOTE | 2017-03-03 10:56 | NUR ---
Therapist prompted client about group times. Client stated he will attend groups today.
[2017-03-03 12:36] VITALS: BP 141/83
--- NOTE | 2017-03-03 12:54 | NUR ---
PRN Administration Pt complain of severe withdrawal symptoms as evidenced by COWS of 13 and CIWA of 16. Head Chef conferred with Dr. Platt in agreement with creative services writer, pt needs PRN medication to help with detox symptoms. Head Chef administered Subutex and Ativan per MD order. Will continue to monitor, support and encourage according to plan of care.
--- NOTE | 2017-03-03 13:55 | NUR ---
PRN Re-Assessment Pt states he feels better and was, " able to crash" after the PRN administration. Pt currently endorses feeling better, but is anxious about his next dosing. Will continue to monitor, support and encourage according to plan of care.
[2017-03-03] MEDS: DICYCLOMINE HCL 20 MG TABLET PO SCH ×2 (15:05→21:06)
[2017-03-03 17:10] VITALS: BP 150/108
[2017-03-03] MEDS: CLONIDINE HCL 0.1 MG TABLET PO PRN (17:11)
--- NOTE | 2017-03-03 17:11 | NUR ---
Patient reported episodes of visual hallucination. He said he sees scenes from different movies. Denies auditory hallucinations. Notified primary nurse Casey and left voicemail for Dr. Platt. Patient currently ambulating on unit and alert and oriented x 4. Will continue to monitor
--- NOTE | 2017-03-03 17:12 | NUR ---
PRN CLONIDINE Pt b/p is 150/108, heart rate 95. PRN Clonidine administered as ordered. Pt encouraged to rest, education provided on medication. Primary nurse to reassess.
--- NOTE | 2017-03-03 18:54 | NUR ---
PRN Re-assessment Re-assessment delayed as pt was on patio and was not feeling ill, states , " I was having a good time, talking. Wasn't feeling bad, so I didn't worry." Medication effective BP: 130/79. Pt states he feels much better. Will continue to monitor, support and encourage according to plan of care.
--- NOTE | 2017-03-03 19:07 | NUR ---
End of Shift Provided report to shift supervisor rn with no further comments, questions or concerns voiced. . Pt is a 21 year old male admitted on 02/1817 for Heroin, ETOH and Benzodiazepine detoxification. Pt was originally admitted to [facility] on 02/27/17, and was transferred to CCU 03/01/17, for aspiration and some traces of pneumonia. Pt was medically cleared to return on 03/02/17 and has been re-admitted for medically supervised detoxification. Pt has NKA, is a full code and is on a regular diet. PMH of anxiety, depression, and torn meniscus in bi-lateral knees. Pt has a history of 1 seizure in 2013, related to withdrawal symptoms. Pt will be started on a modified, 4 day Ativan and 4 modified 4 day Subutex taper. Skin is intact. Pt has received Subutex 4mg, Ativan 2mg and Clonidine 0.1mg PRN on my shift. Subutex and Ativan for COWS 13 and CIWA 16 at 1252. Pt received Clonidine at 1711 for BP of 150/108. Pt's last COWS of 12 and CIWA of 10 were recorded at 1600. Pt has been complaining of visual; hallucinations, first only when eyes are closed and then later while eyes are open as well. Pt not RTIS, not tracking unseen objects, pt denies AH. Pt has many complaints related to withdrawal and has been medicated per MD orders. Bed in low position with wheels locked and call light within reach. All safety measures in place per hospital policy.
[2017-03-03 20:00] VITALS: BP 151/81
--- NOTE | 2017-03-03 20:00 | NUR ---
2000 Patient received awake, alert and standing at his bedside with room fan on high, requesting for nurse to help him to 'cool down' because he is "really feeling hot right now". Patient states, " I just want to lay on top of the bed now, in front of the fan", and then patient laid in top of his bed. Nurse then rubbed patient's face, neck and all patient's extremities with very cold cloths for patient's comfort. Patient states," Ahh, oh thank you, it feels so much better" "You're the best". Patient is oriented to person, place, day, time and his personal situation. Easily reoriented to date. Patient's color is tannish-pink and his skin is warm, very slightly moist and intact. Lung sounds are clear bilaterally and active bowel sounds are noted X 4 abdominal Quads, per auscultation. Patient states that he is eating his regular diet trays " too much" and he is drinking lots of fluids ad lesli with no gastric issues presently. Patient states further that he has attended "a couple of [facility] groups so far and the better that he feel overall, the more regular her will attend groups. Patient states, " Well, I am depressed. I had an emotional time and I was sick when I first came in". Patient allowed to ventilate his feelings and then positive encouragement and calm reassurances given to him for comfort. Vital signs are: 98.4-89-20 151/81, O2 Sat 99%, COWS 7, CIWA 7. Patient denies any pain at this time. Patient was admitted on 03/02/17 for: Heroin, Alcohol, Xanax and Klonopin withdrawal and he is currently on a modified 4-Day Ativan and 4-Day Subutex medication taper, which were both started today 03/03/17. Patient is cooperative and verbally appropriate when interacting with nurse, though his mood/affect both depressed and anxious simultaneously. Bed is locked and in lowest position, bed rails are up X 2 and call light within patient's easy reach.
--- NOTE | 2017-03-03 22:40 | NUR ---
PRN MEDICATION: Prn Zofran 4 mg IM given in [facility] per request for c/o nausea. Patient refused offer of p.o. Zofran 4mg. Patient states, " Please, the shot works better.
--- NOTE | 2017-03-03 23:40 | NUR ---
REASSESSMENT PRN MEDICATION: Patient states that his nausea "is completely gone now".
[2017-03-04] VITALS (7 sets, daily range): BP systolic 134–155; BP diastolic 75–109
[2017-03-04] MEDS: CLONIDINE HCL 0.1 MG TABLET PO PRN (02:46)
[2017-03-04] MEDS: TRAZODONE 50 MG TABLET PO PRN (02:46)
--- NOTE | 2017-03-04 02:46 | NUR ---
PRN MEDICATIONS: Prn Trazadone 50 mg p.o. given for sleep and Prn Catapres 0.1 mg p.o. given for increasing anxiety, agitation, B/P 150/95.
--- NOTE | 2017-03-04 03:46 | NUR ---
REASSESSMENT PRN MEDICATIONS: Patient sleeping comfortably with eyes closed and respirations deep, even, unlabored at 16, B/P 134/75.
--- NOTE | 2017-03-04 06:30 | NUR ---
0630 Patient slept a total of 5 hours and he had 4 voids and no stools. Total intake was 1,796 ml p.o. Prn medications given noted separately per floor protocol. V/SS afebrile, last COWS 2 at 0400, last CIWA 1 at 0400. Patient is presently sleeping soundly with eyes closed and respirations deep, unlabored at 14.
--- NOTE | 2017-03-04 07:30 | NUR ---
START OF SHIFT Pt 21 y/o male admitted for etoh/ opiate/ benzo dependence. Pt received in room on bed with eyes closed resting, but easily arousable to name. Pt alert and oriented to name, place, and time. Perrla. Skin warm and slightly moist to to touch. Respirations even and unlabored. It was reported that pt slept for 5 hours last night. Bed on lowest position with side rails x2 up for safety. Call light within reach. No distress noted at this time.
[2017-03-04] MEDS: METHOCARBAMOL 750 MG TABLET PO PRN (08:10)
[2017-03-04] MEDS: LORAZEPAM 1 MG TABLET PO SCH ×4 (08:10→22:05)
[2017-03-04] MEDS: GABAPENTIN 300 MG CAPSULE PO SCH (08:10)
[2017-03-04] MEDS: THIAMINE HCL 100 MG TABLET PO SCH (08:10)
[2017-03-04] MEDS: MULTIVITAMINS,THERAPEUTIC TABLET PO SCH (08:10)
[2017-03-04] MEDS: DICYCLOMINE HCL 20 MG TABLET PO SCH ×3 (08:11→22:05)
[2017-03-04] MEDS: DOCUSATE SODIUM 250 MG CAPSULE PO SCH (08:11)
[2017-03-04] MEDS: FOLIC ACID 1 MG TABLET PO SCH (08:11)
[2017-03-04] MEDS: ONDANSETRON 4 MG/2 ML VIAL IM PRN ×2 (08:16→15:38)
--- NOTE | 2017-03-04 08:20 | NUR ---
PRN Pt states has headache 5/10. Motrin po prn per MD order given and tolerated well.
--- NOTE | 2017-03-04 08:20 | NUR ---
PRN Pt with c/o body aches 03/25. Robaxin po prn per MD order given and tolerated well.
--- NOTE | 2017-03-04 08:30 | NUR ---
PRN Pt with c/o nausea. Zofran IM per MD order given and tolerated well.
[2017-03-04] MEDS ORDERED: BUPRENORPHINE HCL 2 MG TAB.SUBL SL SCH (09:00)
--- NOTE | 2017-03-04 09:14 | NUR ---
Therapist prompted client about group times. Client stated he would go to groups today.
--- NOTE | 2017-03-04 09:20 | NUR ---
PRN EVAL Pt observed walking around unit. No distress noted at this time.
--- NOTE | 2017-03-04 09:30 | NUR ---
PRN EVAL Pt denies any nausea at this time.
[2017-03-04 11:10] LABS: HEPATITIS B SURFACE AG Negative (Negative)
[2017-03-04] MEDS: ACETAMINOPHEN 325 MG TABLET PO PRN (12:20)
--- NOTE | 2017-03-04 12:25 | NUR ---
PRN Pt states has headache 6/10. tylenol po prn per MD order given and tolerated well.
[2017-03-04] MEDS ORDERED: KETOROLAC TROMETHAMINE 30 MG INJ IM PRN (12:30)
--- NOTE | 2017-03-04 13:25 | NUR ---
FELIX ESPANA Pt observed walking around in the patio.
[2017-03-04] MEDS: BUPRENORPHINE HCL 2 MG TAB.SUBL SL SCH ×2 (14:12→22:05)
[2017-03-04] MEDS: GABAPENTIN 400 MG CAPSULE PO SCH ×2 (14:12→22:05)
[2017-03-04] MEDS: CLONIDINE HCL 0.1 MG TABLET PO SCH ×2 (14:12→22:06)
--- NOTE | 2017-03-04 14:21 | NUR ---
PRN Pt states has generalized body pain /. Toradol IM per MD order given and tolerated well.
--- NOTE | 2017-03-04 15:21 | NUR ---
FELIX ESPANA Pt observed walking around the patio.
[2017-03-04] MEDS ORDERED: BUPRENORPHINE HCL 2 MG TAB.SUBL SL ONE (15:30)
--- NOTE | 2017-03-04 15:43 | NUR ---
ONE TIME DOSE Pt was seen by Dr. Platt with new order for subutex 2mg po x1 dose now, noted and carried out. Cows=10.
--- NOTE | 2017-03-04 15:43 | NUR ---
PRN Pt states feels nauseous. Zofran IM per MD order given and tolerated well.
--- NOTE | 2017-03-04 16:43 | NUR ---
PRN EVAl Pt denies any nausea at this time.
--- NOTE | 2017-03-04 18:27 | NUR ---
END OF SHIFT Pt 21 y/o male admitted for etoh / opiate/ benzo dependence. Pt alert and oriented to name, place, and time. Perrla. Skin warm and moist to touch.Respirations even and unlabored. Bilateral hand tremors noted. Pt observed mostly in dining room and patio throughout the day. Pt attended group activity. Pt was seen by Dr. Platt today. Pt medication compliant and tolerated well. No ASE noted. Bed on lowest position with side rails x2 up for safety. Call light within reach. No distress noted at this time.
--- NOTE | 2017-03-04 20:00 | NUR ---
Start of Shift Note: Report received from day shift nurse. Pt is a 21 yo male admitted on 03/02/17 for medically-supervised withdrawal from opiates, ETOH, and benzodiazepines. Pt reports using 1gm heroin, 30mg Xanax, 60mg Klonopin, and drinking 750ml vodka daily for 25 days. Pt is on a 4-day Ativan and Subutex tapers. Pt received with last COWS=7/CIWA=3, and PRNs Robaxin, motrin, toradol, Tylenol, and zofran x2 were given during day shift. Pt is a full code, reports NKDA/NKFA, and is on a regular diet. PMHx: anxiety, depression, hx of sz. Pt received in room, and reports generalized pain, restlessness, lacrimation, nausea, anxiety, agitation, and headache . Bed is in low position and locked, side rails up x2, call light within reach. Will continue to monitor.
[2017-03-04] MEDS: ONDANSETRON ODT 4 MG TAB.RAPDIS SL PRN (22:05)
--- NOTE | 2017-03-04 22:05 | NUR ---
PRN Zofran SL: Patient complains of nausea. Patient denies emesis. Administered PRN Zofran SL as ordered. Will continue to monitor.
--- NOTE | 2017-03-04 22:35 | NUR ---
PRN Reassessment: Patient denies nausea at this time. PRN Zofran SL effective.
[2017-03-05] VITALS: BP 132/84
--- NOTE | 2017-03-05 | NUR ---
COWS/CIWA Deferred: COWS and CIWA are deferred for sleep. V/S stable. All safety precautions are in place. Will continue to monitor. Addendum: 03/05/17 at 0117 by GISELA DAS RN Amended: Links added.
[2017-03-05] MEDS ORDERED: HYDROXYZINE PAMOATE 25 MG CAPSULE PO PRN (03:00)
[2017-03-05] MEDS ORDERED: HYDROXYZINE PAMOATE 25 MG CAPSULE ONE (03:05)
--- NOTE | 2017-03-05 03:10 | NUR ---
PRN Vistaril: Patient complains of anxiety not relieved by non-pharmacological methods. Administered PRN Vistaril as ordered. Will continue to monitor.
--- NOTE | 2017-03-05 04:00 | NUR ---
Vitals Refused, COWS/CIWA Deferred: Patient refuses 04:00 V/S assessment. COWS/CIWA is deferred for sleep. No s/s of acute distress noted. All safety precautions are in place. Will continue to monitor. Addendum: 03/05/17 at 0554 by GISELA DAS RN Amended: Links added.
--- NOTE | 2017-03-05 07:08 | NUR ---
End of Shift Note: Pt is a 21 yo male admitted to [facility] on 03/02/17 for medically-supervised withdrawal from opiates, ETOH, and benzodiazepines. Pt reports a PMHx of anxiety, depression, and hx of sz. Pt is a full code. Pt reports NKDA/NKFA. Pt is on a regular diet. Pt reported using 1gm heroin, 30mg Xanax, 60mg Klonopin, and drinking 750ml vodka daily for 25 days, and was placed on 4-day Ativan and Subutex tapers. Scheduled medication regime effectively managed s/s of withdrawal this shift, in addition to PRN Zofran for nausea and PRN Vistaril for anxiety. Last COWS=8/CIWA=8 at 20:00. V/S stable throughout shift. Total fluid intake this shift: 1605 ml; output: urine x 4 and BM x 0. Pt is currently in bed and slept 7 hours this shift. All needs have been attended and met. Will continue to monitor.
--- NOTE | 2017-03-05 07:30 | NUR ---
START OF SHIFT Pt 21 y/o male admitted for etoh/ opiate/ benzo dependence. Pt received in room on bed with eyes closed resting, but easily arousable to name. Pt alert and oriented to name, place, and time. Perrla. Skin warm and slightly moist to to touch. Respirations even and unlabored. Bilateral hand tremors noted slightly. It was reported that pt slept for 7 hours last night. Bed on lowest position with side rails x2 up for safety. Call light within reach. No distress noted at this time.
[2017-03-05 08:18] VITALS: BP 121/71
[2017-03-05] MEDS: THIAMINE HCL 100 MG TABLET PO SCH (08:40)
[2017-03-05] MEDS: BUPRENORPHINE HCL 2 MG TAB.SUBL SL SCH ×3 (08:40→20:57)
[2017-03-05] MEDS: DOCUSATE SODIUM 250 MG CAPSULE PO SCH (08:41)
[2017-03-05] MEDS: MULTIVITAMINS,THERAPEUTIC TABLET PO SCH (08:41)
[2017-03-05] MEDS: FOLIC ACID 1 MG TABLET PO SCH (08:41)
[2017-03-05] MEDS: DICYCLOMINE HCL 20 MG TABLET PO SCH ×3 (08:41→20:57)
[2017-03-05] MEDS: LORAZEPAM 1 MG TABLET PO SCH ×3 (08:41→20:57)
[2017-03-05] MEDS: GABAPENTIN 400 MG CAPSULE PO SCH (08:41)
[2017-03-05] MEDS: CLONIDINE HCL 0.1 MG TABLET PO SCH ×3 (08:41→20:57)
[2017-03-05] MEDS ORDERED: KETOROLAC TROMETHAMINE 60 MG INJ IM PRN (10:30)
[2017-03-05] MEDS ORDERED: BUPRENORPHINE HCL 2 MG TAB.SUBL SL ONE (10:30)
[2017-03-05] MEDS ORDERED: METHYL SALICYLATE/MENTHOL CREAM 28 GM TUBE TOP PRN (10:30)
--- NOTE | 2017-03-05 11:16 | NUR ---
SUBUTEX Pt with scheduled subutex due at 1030, but pt is in group activity at this time. Will administer as soon as group activity ends.
--- NOTE | 2017-03-05 11:26 | NUR ---
SUBUTEX Pt was seen by Dr. Platt with new order for subutex 2 mg po x1 dose. cows=8.
[2017-03-05 12:00] VITALS: BP 96/38
--- NOTE | 2017-03-05 12:26 | NUR ---
PRN EVAL Pt with cows=3. Pt observed walking around in the patio.
[2017-03-05] MEDS: GABAPENTIN 300 MG CAPSULE PO SCH ×2 (14:26→20:57)
[2017-03-05 16:00] VITALS: BP 161/77
[2017-03-05] MEDS: CLONIDINE HCL 0.1 MG TABLET PO PRN (17:10)
--- NOTE | 2017-03-05 17:15 | NUR ---
PRN Pt with qv=297/77. Catapres po prn per MD order given and tolerated well.
[2017-03-05 18:15] VITALS: BP 130/72
--- NOTE | 2017-03-05 18:15 | NUR ---
PRN EVAL Pt with uc=070/72.
--- NOTE | 2017-03-05 18:31 | NUR ---
END OF SHIFT Pt 21 y/o male admitted for etoh / opiate/ benzo dependence. Pt alert and oriented to name, place, and time. Perrla. Skin warm and moist to touch.Respirations even and unlabored. Bilateral hand tremors noted slightly. Pt observed mostly in dining room and patio throughout the day. Pt attended group activity. Pt was seen by Dr. Platt today. Pt medication compliant and tolerated well. No ASE noted. Bed on lowest position with side rails x2 up for safety. Call light within reach. No distress noted at this time.
[2017-03-05 20:17] VITALS: BP 137/74
--- NOTE | 2017-03-05 20:48 | NUR ---
PRN Trazodone Pt c/o inability to sleep and requested for PRN Trazodone. Medication given and tolerated well. Will reassess within 1 HR. Will continue to monitor.
--- NOTE | 2017-03-05 21:45 | NUR ---
PRN Trazodone Reassessment Medication effective. Pt is resting well in bed. No s/s of ASE/distress noted at this time. Respirations even and unlabored. Will continue to monitor.
[2017-03-05] MEDS: TRAZODONE 50 MG TABLET PO PRN (21:48)
[2017-03-06 00:14] VITALS: BP 128/91
[2017-03-06 04:08] VITALS: BP 125/88
--- NOTE | 2017-03-06 07:00 | NUR ---
End of shift note Pt is a 21 yo male, A+Ox4, presenting to [facility] for Opiate/ETOH/Benzo dependence. Pt has NKA, is on Full code status, and on Regular diet. Pt has HX of Anxiety, depression, seizure, and bilateral knees torn meniscus. Pt is on 4 day Ativan and 4 day Subutex tapers, tolerated well. Pt was given PRN Trazodone @2047. Pt slept for a total of 5 HRS. Last COWS: 2 and Last CIWA: 2 @0400. No s/s of distress noted at this time. Respirations even and unlabored. Will endorse to day shift nurse.
[2017-03-06 08:00] VITALS: BP 128/72
--- NOTE | 2017-03-06 08:00 | NUR ---
START OF SHIFT Rcvd endorsement from ongoing nurse, 29 y/o admitted for alcohol, benzodiazepine and heroin withdrawal, he is on day 3rd of 4 Ativan/Subutex taper. tolerating well, with no ASE, last CIWA 2 /COWS 2 @ 1999. PRN Trazodone for inability to sleep, he slept 8 hrs. Client is in bed, a/o x4. he presents with depressed mood, flat affect, he reports restless legs, abdominal cramps, and fatigue, he denies any N/V/D, he denies any SI/HI. Client with moist skin, abdomen soft, nontender, quadrant x 4 active. Encourage client to increase fluid intake as tolerated to facilitate detox. Encourage client to attend group therapy for skills to maintain sobriety. He reports history of withdrawal induced seizures (2013). Client is on seizure precautions. NKA, full code, regular diet. Call light within reach. Side rails x 2 up/padded. Will continue to monitor.
[2017-03-06] MEDS: GABAPENTIN 300 MG CAPSULE PO SCH ×3 (09:45→22:03)
[2017-03-06] MEDS: THIAMINE HCL 100 MG TABLET PO SCH (09:46)
[2017-03-06] MEDS: MULTIVITAMINS,THERAPEUTIC TABLET PO SCH (09:46)
[2017-03-06] MEDS: BUPRENORPHINE HCL 2 MG TAB.SUBL SL SCH ×2 (09:46→22:04)
[2017-03-06] MEDS: DICYCLOMINE HCL 20 MG TABLET PO SCH ×3 (09:46→22:03)
[2017-03-06] MEDS: LORAZEPAM 1 MG TABLET PO SCH ×2 (09:46→22:04)
[2017-03-06] MEDS: DOCUSATE SODIUM 250 MG CAPSULE PO SCH (09:46)
[2017-03-06] MEDS: CLONIDINE HCL 0.1 MG TABLET PO SCH ×4 (09:46→22:04)
[2017-03-06] MEDS: FOLIC ACID 1 MG TABLET PO SCH (09:46)
[2017-03-06 12:55] VITALS: BP 130/96
[2017-03-06] MEDS: METHOCARBAMOL 750 MG TABLET PO PRN (14:20)
[2017-03-06] MEDS: ACETAMINOPHEN 325 MG TABLET PO PRN (14:20)
--- NOTE | 2017-03-06 14:20 | NUR ---
PRN Robaxin 750mg, Tylenol 650mg Client reports muscle pain and generalized body aches, above medications PO administered. Call light within reach. Will continue to monitor.
--- NOTE | 2017-03-06 15:20 | NUR ---
Reassessment PRN Robaxin 750mg, Tylenol 650mg Client reports relief from muscle pain and generalized body aches 0/10 from a previous 6/10, above medications effective Call light within reach.
[2017-03-06 16:55] VITALS: BP 135/88
[2017-03-06] MEDS: MIRALAX 17 GM POWD.PACK PO SCH (17:25)
--- NOTE | 2017-03-06 18:28 | NUR ---
END OF SHIFT Will endorse client to incoming nurse, client is in room, PRN Robaxin 750mg, Tylenol 650mg for muscle pain and generalized body ache, noted effective. Client continues to present with depressed mood, flat affect, abdominal cramps, restless legs,, and fatigue. He is on 3rd of 4 day Ativan/Subutex taper, tolerating well, last CIWA 3 / COWS 3 @ 1700. Client is fully ambulatory. Client was compliant with group therapy. Adequate PO intake 2250mL, void x 8, stool x 1. Call light within reach. Safety measures rendered and all needs met.
--- NOTE | 2017-03-06 19:12 | NUR ---
Start of shift note Received report from day shift nurse. Pt is a 21 yo male, A+Ox4, presenting to [facility] for Opiate/ETOH/Benzo dependence. Pt has NKA, is on Full code status, and on Regular diet. Pt has HX of Anxiety, depression, seizure, and bilateral knees torn meniscus. Pt is on 4 day Ativan and 4 day Subutex tapers, tolerated well. No s/s of distress noted at this time. Respirations even and unlabored. Will continue to monitor.
[2017-03-06 20:24] VITALS: BP 122/74
[2017-03-06] MEDS: SENNOSIDES 1 TABLET PO SCH (22:04)
[2017-03-07 00:19] VITALS: BP 148/95
[2017-03-07] MEDS: TRAZODONE 50 MG TABLET PO PRN ×2 (01:48→23:23)
--- NOTE | 2017-03-07 01:55 | NUR ---
PRN Trazodone Pt c/o inability to sleep and requested for PRN Trazodone. Medication given and tolerated well. Will reassess within 1 HR. Will continue to monitor.
--- NOTE | 2017-03-07 02:45 | NUR ---
PRN Trazodone Reassessment Medication effective. Pt is resting in bed at this time. Respirations even and unlabored. Will continue to monitor.
[2017-03-07 04:34] VITALS: BP 141/90
--- NOTE | 2017-03-07 06:56 | NUR ---
End of shift note Pt is a 21 yo male, A+Ox4, presenting to [facility] for Opiate/ETOH/Benzo dependence. Pt has NKA, is on Full code status, and on Regular diet. Pt has HX of Anxiety, depression, seizure, and bilateral knees torn meniscus. Pt is on 4 day Ativan and 4 day Subutex tapers, tolerated well. Pt was given PRN Trazodone @0155. Pt slept for a total of 5 HRS. Last COWS: 2 and Last CIWA: 2 @0400. No s/s of distress noted at this time. Respirations even and unlabored. Will endorse to day shift nurse.
--- NOTE | 2017-03-07 07:30 | NUR ---
START OF SHIFT Rcvd endorsement from ongoing nurse, 29 y/o admitted for alcohol, benzodiazepine and heroin withdrawal, he is on last day of 4 Ativan/Subutex taper. tolerating well, with no ASE, last CIWA 2 /COWS 2 @ 0400. PRN Trazodone for inability to sleep, he slept 5 hrs. Client is in bed, sound asleep, easy to arouse, RR 18 even, non-labored. He reported history of withdrawal induced seizures (2013). Client is on seizure precautions. NKA, full code, regular diet. Call light within reach. Side rails x 2 up/padded. Will continue to monitor.
[2017-03-07 08:22] VITALS: BP 138/63
[2017-03-07] MEDS: MIRALAX 17 GM POWD.PACK PO SCH ×2 (09:00→17:00)
[2017-03-07] MEDS ORDERED: BUPRENORPHINE HCL 2 MG TAB.SUBL SL SCH (09:00)
[2017-03-07] MEDS ORDERED: LORAZEPAM 1 MG TABLET PO SCH (09:00)
[2017-03-07] MEDS: MULTIVITAMINS,THERAPEUTIC TABLET PO SCH (09:45)
[2017-03-07] MEDS: DOCUSATE SODIUM 250 MG CAPSULE PO SCH (09:45)
[2017-03-07] MEDS: DICYCLOMINE HCL 20 MG TABLET PO SCH ×3 (09:46→21:38)
[2017-03-07] MEDS: THIAMINE HCL 100 MG TABLET PO SCH (09:46)
[2017-03-07] MEDS: CLONIDINE HCL 0.1 MG TABLET PO SCH ×4 (09:46→21:39)
[2017-03-07] MEDS: GABAPENTIN 300 MG CAPSULE PO SCH ×3 (09:46→21:38)
[2017-03-07] MEDS: FOLIC ACID 1 MG TABLET PO SCH (09:46)
[2017-03-07 12:55] VITALS: BP 137/96
[2017-03-07] MEDS ORDERED: HYDR-3895 PO (13:58)
[2017-03-07] MEDS ORDERED: DICY20TA28 PO (13:58)
[2017-03-07] MEDS ORDERED: ONDA4TAB11 SL (13:58)
[2017-03-07] MEDS ORDERED: TRAZ-144 PO (13:58)
[2017-03-07] MEDS ORDERED: METH-406 PO (13:58)
[2017-03-07] MEDS ORDERED: IBUP-1955 PO (13:58)
[2017-03-07] MEDS ORDERED: CLON0.1T14 PO (13:58)
[2017-03-07 14:11] LABS: *AMPHETAMINE, URINE NEGATIVE (NEGATIVE); *BARBITURATE, URINE POSITIVE (NEGATIVE); *CANNABINOID, URINE POSITIVE (NEGATIVE); *COCCAINE, URINE NEGATIVE (NEGATIVE); *OPIATE, URINE NEGATIVE (NEGATIVE); *PHENCYCLIDINE SCREEN,URINE NEGATIVE (NEGATIVE)
[2017-03-07 16:55] VITALS: BP 114/64
--- NOTE | 2017-03-07 18:34 | NUR ---
END OF SHIFT Will endorse client to incoming nurse, client is in room, a/o x 4, client continues to present with depressed mood, flat affect, abdominal cramps, restless legs,, and fatigue. He completed 4 day Ativan/Subutex taper, tolerated well, with no ASE, last CIWA 2 / 3 @ 1700. Client is fully ambulatory. Client was compliant with group therapy. Adequate PO intake 3600mL, void x 4. Call light within reach. Safety measures rendered and all needs met.
[2017-03-07 20:22] VITALS: BP 137/81
[2017-03-07] MEDS: SENNOSIDES 1 TABLET PO SCH (21:38)
--- NOTE | 2017-03-07 23:23 | NUR ---
PRN Trazodone Pt c/o inability to sleep and requested for PRN Trazodone. Medication given and tolerated well. Will reassess within 1 HR. Will continue to monitor.
--- NOTE | 2017-03-08 00:20 | NUR ---
PRN Trazodone Reassessment Medication effective. Pt is resting well in bed at this time. No s/s of ASE/distress noted at this time. Respirations even and unlabored. Will continue to monitor.
[2017-03-08 00:53] VITALS: BP 149/81
[2017-03-08 04:26] VITALS: BP 147/84
--- NOTE | 2017-03-08 07:00 | NUR ---
End of shift note Pt is a 21 yo male, A+Ox4, presenting to [facility] for Opiate/ETOH/Benzo dependence. Pt has NKA, is on Full code status, and on Regular diet. Pt has HX of Anxiety, depression, seizure, and bilateral knees torn meniscus. Pt has completed 4 day Ativan and 4 day Subutex tapers, tolerated well, and is due for discharge today. Pt was given PRN Trazodone @2323. Pt slept for a total of 7 HRS. Last COWS: 2 and Last CIWA: 1 @0400. No s/s of distress noted at this time. Respirations even and unlabored. Will endorse to day shift nurse.
--- NOTE | 2017-03-08 07:54 | NUR ---
START OF SHIFT Received report from night nurse. 21 year old male patient admitted on 03/02/17 for ETOH, heroin, and benzo withdrawals. Pt has completed modified 4 day Ativan and 4 day Subutex taper. Pt is not in acute distress and does not present with s/s of withdrawals. Pt slept for 7 hours. PRN Trazodone administered. Most recent COWS are 2 and CIWA 1. All needs met, will continue to monitor.
[2017-03-08 08:54] VITALS: BP 111/78
[2017-03-08] MEDS: DICYCLOMINE HCL 20 MG TABLET PO SCH (09:00)
[2017-03-08] MEDS: CLONIDINE HCL 0.1 MG TABLET PO SCH (09:00)
[2017-03-08] MEDS: FOLIC ACID 1 MG TABLET PO SCH (09:00)
[2017-03-08] MEDS: DOCUSATE SODIUM 250 MG CAPSULE PO SCH (09:00)
[2017-03-08] MEDS: GABAPENTIN 300 MG CAPSULE PO SCH (09:00)
[2017-03-08] MEDS: MIRALAX 17 GM POWD.PACK PO SCH (09:00)
[2017-03-08] MEDS: THIAMINE HCL 100 MG TABLET PO SCH (09:00)
[2017-03-08] MEDS: MULTIVITAMINS,THERAPEUTIC TABLET PO SCH (09:00)
--- NOTE | 2017-03-08 09:00 | NUR ---
REFUSAL OF 0900 MEDICATIONS Pt is refusing 0900 medications stating "I am being discharged and I don't want to take them." Pt education provided.
--- NOTE | 2017-03-08 10:02 | NUR ---
D/C NOTE Pt is A/O x4. V/S remain WNL. Pt denies SI/HI or hallucinations. Pt shows no s/s of acute withdrawal at this time, and is stable. MD has medically cleared pt for d/c . Education on Hepatitis C, smoking cessation and medication side effects provided. Pt verbalizes understanding. All pt belongings are in belonging bag, including prescriptions, including home medications. Refuses PNU vaccination. Pt is being accompanied by AUTO CAMP ATTENDANT at this time to be transported to rehab. All needs met.
== END 2017-03-08 09:53 | disposition other institution (70) | DRG 895 ==
LOC: SRC 22:01
PROVIDERS: ADMIT Internal Medicine; ATTEND Internal Medicine
PROC: HZ2ZZZZ Detoxification Services for Substance Abuse Treatment (ICD-10-PCS; principal; 2017-03-02)
PROC: HZ41ZZZ Group Counseling for Substance Abuse Treatment, Behavioral (ICD-10-PCS; 2017-03-03)
DX: F10.230 Alcohol dependence with withdrawal, uncomplicated (principal); J81.1 Chronic pulmonary edema; J80 Acute respiratory distress syndrome; F13.230 Sedative, hypnotic or anxiolytic dependence with withdrawal, uncomplicated; F11.23 Opioid dependence with withdrawal; F17.210 Nicotine dependence, cigarettes, uncomplicated; G47.00 Insomnia, unspecified; Y90.9 Presence of alcohol in blood, level not specified; Z81.1 Family history of alcohol abuse and dependence; Z81.8 Family history of other mental and behavioral disorders; Z68.39 Body mass index [BMI] 39.0-39.9, adult; E66.9 Obesity, unspecified; F31.9 Bipolar disorder, unspecified; I15.9 Secondary hypertension, unspecified; Z91.19 Patient's noncompliance with other medical treatment and regimen; F12.90 Cannabis use, unspecified, uncomplicated; Z65.3 Problems related to other legal circumstances
CPT/HCPCS: 36415; 70030-TC; 71010; 80307; 80345; 80346; 80349; 83735; 84443; 85025; 86592; 86705; 86803; 87340; 87806; G0480; J1885; J2405; Q0162

== ENCOUNTER 2017-07-13 22:34 | Inpatient (IN) | payer BC, OTHER ==
[~2017-07-13] VITALS: Ht 167.6 cm; Wt 115.2 kg
[~2017-07-13 22:34] MED LIST changes: -ALPR2TAB7 PO; +CLON0.1T14 PO; -CLON2TAB PO; +DICY20TA28 PO; +HYDR-3895 PO; +IBUP-1955 PO; +METH-406 PO; +ONDA4TAB11 SL; +TRAZ-144 PO
[2017-07-14 13:45] VITALS: BP 131/71
--- NOTE | 2017-07-14 13:45 | NUR ---
Pre-Admission Pre-admission assessment performed in the intake department of [facility]. Pt is A&O and ambulatory with a slightly unsteady gait due to being intoxicated. He will be transferred to the unit via wheelchair. He appears moderately intoxicated but answers questions appropriately. Vitals are B/P 131/71, HR 96, RR 18, O2 sat 95%, T 98.0, pain 0/10. [facility].
[2017-07-14] MEDS ORDERED: LOPERAMIDE HCL 2 MG CAPSULE PO PRN (15:30)
[2017-07-14] MEDS ORDERED: MAG HYDROX/AL HYDROX/SIMETH 30 ML LIQUID UDC PO PRN (15:30)
[2017-07-14] MEDS ORDERED: MIRALAX 17 GM POWD.PACK PO PRN (15:30)
[2017-07-14] MEDS ORDERED: LORAZEPAM 2 MG/1 ML VIAL IM PRN (15:30)
[2017-07-14] MEDS ORDERED: DIAZEPAM 5 MG TABLET PO PRN (15:30)
[2017-07-14] MEDS ORDERED: THIAMINE HCL 200 MG/2 ML VIAL IM ONE (15:30)
[2017-07-14] MEDS ORDERED: DIAZEPAM 10 MG TABLET PO PRN (15:30)
[2017-07-14] MEDS ORDERED: DICYCLOMINE HCL 20 MG TABLET PO PRN (15:30)
[2017-07-14] MEDS ORDERED: MAGNESIUM HYDROXIDE 30 ML LIQUID UDC PO PRN (15:30)
[2017-07-14] MEDS ORDERED: diphenhydrAMINE 50 MG CAPSULE PO PRN (15:30)
--- NOTE | 2017-07-14 15:45 | NUR ---
ADMISSION PT is a 22 yo female admitted to [facility] on 07/14 at 1409 for medically supervised detox. He is A&O and ambulatory with a slightly unsteady gait r/t being intoxicated. He was transferred from intake in a wheelchair. Pt placed on a 1:1 for safety. Skin check performed by SALES RECRUITMENT SPECIALIST and skin check performed by nurse. Pt was oriented to the unit and shown to his room. He appears moderately intoxicated but answers questions appropriately. He is slightly agitated at times. He reports NKA, is full code status, and on a regular diet. Vitals in intake were B/P 131/71, HR 96, RR 18, O2 sat 95%, T 98.0, pain 0/10. He is 5'6" and weighs 254lb. PMH of seizure x1 in 2014, bronchitis currently per pt, right torn meniscus, HTN, anxiety, depression, bipolar, schizoaffective do, and overeating. Lung sounds clear, PERRLA, brisk capillary refill, bowel sounds present, district agent strength equal, skin is intact. Last BM was yesterday. History of Use 1) ETOH 750mL per day for the past 1.5 months. Last used 16oz on 07/14/17 at 0900. He has used ETOH for 6 years 2) Xanax 25mg per day for the past 1.5 months. Last used 8 mg on 07/14/17 at 0900. He has used BZDs for 6 years. 3) Klonopin 20mg QOD for the past 1.5 months. Last used 20mg 07/13/17. He has used BZDs for 6 years. 4) Heroin 2 grams per day smoke for the past 1.5 months. Last used 2 grams 07/14/17 at 0900. He has used heroin for 2 years. 5) Fentanyl 4 tabs per day for the past 1.5 months. He has used Fentanyl for 6 years. 6) Marijuana 1/8 ounce per day for 1.5 months. Last used 07/14/17. He has used marijuana for 6 years. Treatment History [facility] 02/2017 Pt smokes 3 cigarettes per day. He decided to come to treatment today because "I need to taper off drugs". He currently lives in sober living. He does not have a primary care physician . COWS 3 and CIWA 3 on admission. Pt did not bring any medications from home. saw pt on the unit with orders placed. Pt educated regarding use of the call light and all questions answered. Bed is down with call light in reach. Addendum: 07/14/17 at 1957 by JOSR LOONEY RN Prior to relapsing 1.5 months ago pt was sober for 90 days. Addendum: 07/14/17 at 2001 by JOSR LOONEY RN Pt also reported using Oxycodone 90mg per day for 1.5 months. Last used 07/13/17.
[2017-07-14 16:00] VITALS: BP 128/76
[2017-07-14 16:12] LABS: *AMPHETAMINE, URINE NEGATIVE (NEGATIVE); *BARBITURATE, URINE NEGATIVE (NEGATIVE); *CANNABINOID, URINE POSITIVE (NEGATIVE); *COCCAINE, URINE NEGATIVE (NEGATIVE); *OPIATE, URINE NEGATIVE (NEGATIVE); *PHENCYCLIDINE SCREEN,URINE NEGATIVE (NEGATIVE)
[2017-07-14 16:35] LABS: BASOPHILS # (AUTO) 0.1 K/uL (0.0-8.0); BASOPHILS % (AUTO) 0.7 % (0.0-2.0); EOSINOPHILS % (AUTO) 0.4 % (0.0-7.0); HEMATOCRIT 47.2 % (40-50); LYMPHOCYTES # (AUTO) 2.1 K/UL (0.8-4.8); LYMPHOCYTES % (AUTO) 22.7 % (20.5-51.5); MEAN CORPUSCULAR HEMOGLOBIN 28.3 UUG (27.0-31.0); MEAN CORPUSCULAR HGB CONC 34 g/dL (32.0-37.0); MEAN CORPUSCULAR VOLUME 83.4 FL (82.0-92.0); MONOCYTES # (AUTO) 0.4 K/UL (0.1-1.30); MONOCYTES % (AUTO) 4.8 % (0.0-11.0); NEUTROPHILS # (AUTO) 6.7 K/UL (1.8-8.9); NEUTROPHILS % (AUTO) 71.4 % (38.5-71.5); PLATELET COUNT (AUTO) 246 K/UL (150-450); RED BLOOD CELL COUNT(AUTO) 5.66 MIL/UL (4.7-6.1); WHITE BLOOD COUNT (AUTO) 9.3 K/UL (4.0-11.2)
[2017-07-14 16:53] LABS: BILIRUBIN,TOTAL 0.5 mg/dL (0.2-1.0); CREATININE 0.8 mg/dL (0.6-1.3); MAGNESIUM 1.9 mg/dL (1.8-2.4); POTASSIUM 3.7 mmol/L (3.5-5.1); TOTAL PROTEIN, SERUM 7.8 g/dL (6.4-8.2)
--- NOTE | 2017-07-14 19:15 | NUR ---
START OF SHIFT Received 22 year old male patient admitted on 07/14/17 for ETOH, Benzodiazepine, Heroin, Fentanyl, and Marijuana dependency. Pt is full code with NKA. He reports a PMHx of bronchitis, HTN, seizure (2014), anxiety, depression and schizoaffective disorder. He reports using EOTH 750 mL daily for 1.5 months. Last dose was 07/14/17, Xanax 25 mg daily for 15 months. Last dose was 07/14/17, Klonopin 20 mg QOD for 1.5 months. Last dose was 07/13/17. Heroin 2 grams daily for 1.5 months. Last dose was 07/14/17. Fentanyl 4 tabs daily for 1.5 months. Last dose was 07/13/17. And Marijuana 1/8 oz daily for 1.5 months. Pt is on a 1:1 for unsteady gait. Per endorsement, pt did not receive PRN medications. He is scheduled to start a 5 day Phenobarbital and 5 day Subutex taper tomorrow 07/15/17. Pending diazepam taper. Pt is alert and oriented x4, breathing even and unlabored. Safety measures in place. 1:1 sitter at bedside. Will continue to monitor.
--- NOTE | 2017-07-14 19:15 | NUR ---
END OF SHIFT Report provided to day shift nurse. Pt is lying in bed resting with eyes closed. 1:[address] EXPERIENCE CONSULTANT [address] for safety. Pt admitted to [facility] today for ETOH, BZD, and Opiate dependence. Fall and seizure precautions in place. Bed is down with call light in reach.
[2017-07-14 20:00] VITALS: BP 115/70
[2017-07-14] MEDS ORDERED: PHENOBARBITAL 60 MG TABLET PO SCH (21:00)
[2017-07-14] MEDS: GABAPENTIN 300 MG CAPSULE PO SCH (21:30)
[2017-07-14] MEDS: DIAZEPAM 10 MG TABLET PO PRN (23:16)
[2017-07-14] MEDS: ONDANSETRON ODT 4 MG TAB.RAPDIS SL PRN (23:17)
[2017-07-14] MEDS: BUPRENORPHINE HCL 2 MG TAB.SUBL SL PRN (23:17)
--- NOTE | 2017-07-14 23:18 | NUR ---
PRN VALIUM/SUBUTEX/ZOFRAN Pt complains of nausea, body aches 8/10, diaphoresis, chills, anxiety and agitation. COWS:12, CIWA:10. PRN Valium, Subutex and Zofran administered as ordered. Breathing even and unlabored. Safety measures in place. Will continue to monitor effectiveness.
[2017-07-15] VITALS: BP 161/89
--- NOTE | 2017-07-15 00:18 | NUR ---
PRN REASSESSMENT PRN Valium and Subutex effective. Pt's COWS decreased to 10 and CIWA: 7. PRN Zofran SL ineffective. Pt reports episode nausea and vomiting.
[2017-07-15] MEDS: ONDANSETRON 4 MG/2 ML VIAL IM PRN ×3 (00:22→17:11)
[2017-07-15] MEDS: IBUPROFEN 600 MG TABLET PO PRN (00:22)
--- NOTE | 2017-07-15 00:22 | NUR ---
PRN ZOFRAN IM, IBUPROFEN Pt complains of nausea and two episodes of vomiting unrelieved by Zofran SL. Pt complains of headache 02/22. PRN Zofran IM and Ibuprofen administered as ordered. Breathing even and unlabored. Safety measures in place. Will monitor effectiveness.
--- NOTE | 2017-07-15 01:22 | NUR ---
PRN ZOFRAN IM/IBUPROFEN PRN medications effective. Pt is lying in bed with eyes closed noted to be asleep. Breathing even and unlabored. Safety measures in place. Will monitor.
[2017-07-15 04:00] VITALS: BP 135/75
--- NOTE | 2017-07-15 04:00 | NUR ---
COWS/CIWA DEFERRED Pt lying in bed with eyes closed noted to be asleep. Respirations 16, breathing is even and unlabored. Safety measures in place. Will monitor.
[2017-07-15 06:06] LABS: HEPATITIS B SURFACE AG Negative (Negative)
--- NOTE | 2017-07-15 07:05 | NUR ---
END OF SHIFT Pt is a 22 year old male patient admitted on 07/14/17 for ETOH, Benzodiazepine, Heroin, Fentanyl, and Marijuana dependency. Pt is full code with NKA. He reports a PMHx of bronchitis, HTN, seizure (2014), anxiety, depression and schizoaffective disorder. He received PRN Subutex, Valium, Zofran SL, Zofran IM, and Ibuprofen. He is scheduled to start a 5 day Phenobarbital and 5 day Subutex taper today 07/15/17. He slept a total of 5hrs, Intake:910mL, Void:x2, Emesis: x2, BM:0, COWS:10, CIWA:7. Pt remains alert and oriented x4, breathing even and unlabored. Safety measures in place. 1:1 sitter at bedside for safety. Will endorse to AM shift.
--- NOTE | 2017-07-15 07:30 | NUR ---
START OF SHIFT Pt 22 y/o male admitted for etoh benzo, and opiate dependence. Pt received awake in room on bed sitting watching television. Pt alert and oriented to name, place, and time. Perrla. Skin warm and slightly moist to touch. Respirations even and unlabored. Bilateral hand tremors noted. Pt appears anxious with pressured speech noted. Pt also states he feels nauseous. It was reported that pt slept for 5 hours last night. Pt with sitter 1:1 to monitor for safety. Bed on lowest position with side rails x2 up for safety. Call light within reach. NO distress noted at this time.
[2017-07-15 08:00] VITALS: BP 162/88
[2017-07-15] MEDS: CLONIDINE HCL 0.1 MG TABLET PO PRN (08:13)
[2017-07-15] MEDS: FOLIC ACID 1 MG TABLET PO SCH (08:13)
[2017-07-15] MEDS: MULTIVITAMINS,THERAPEUTIC TABLET PO SCH (08:13)
[2017-07-15] MEDS: METHOCARBAMOL 750 MG TABLET PO PRN (08:13)
[2017-07-15] MEDS: THIAMINE HCL 100 MG TABLET PO SCH (08:13)
[2017-07-15] MEDS: GABAPENTIN 300 MG CAPSULE PO SCH ×2 (08:13→14:07)
[2017-07-15] MEDS: BUPRENORPHINE HCL 2 MG TAB.SUBL SL SCH ×4 (08:14→21:52)
[2017-07-15] MEDS: PHENOBARBITAL 60 MG TABLET PO SCH ×4 (08:14→21:52)
--- NOTE | 2017-07-15 08:26 | NUR ---
PRN Pt with c/o body aches 02/22. Robaxin po prn per MD order given and tolerated well.
--- NOTE | 2017-07-15 08:26 | NUR ---
PRN Pt with 2 episodes of vomit. Zofran IM prn per MD order given and tolerated well.
--- NOTE | 2017-07-15 08:26 | NUR ---
PRN Pt states has headche 01/23. Motrin po prn per MD order given and tolerated well.
[2017-07-15] MEDS ORDERED: TUBERCULIN,PURIF.PROT.DERIV. 5 TU/0.1 ML TEST ID ONE (09:00)
--- NOTE | 2017-07-15 09:26 | NUR ---
FELIX ESPANA Pt observed in room on bed watching television. No distress noted at this time.
--- NOTE | 2017-07-15 09:26 | NUR ---
FELIX ESPANA Pt observed walking around in room. No distress noted at this time.
--- NOTE | 2017-07-15 09:26 | NUR ---
PRN EVAL Pt states does not feel nauseated at this time.
[2017-07-15] MEDS: DIAZEPAM 10 MG TABLET PO PRN ×2 (11:20→23:08)
[2017-07-15] MEDS: BUPRENORPHINE HCL 2 MG TAB.SUBL SL PRN (11:21)
--- NOTE | 2017-07-15 11:22 | NUR ---
PRN Pt with cows=12. Pt seen by . Alanutex sl prn per MD order given and tolerated well.
--- NOTE | 2017-07-15 11:22 | NUR ---
PRN Pt with cows=10. Pt seen by MD. Valium po prn per MD order given and tolerated well.
[2017-07-15 12:00] VITALS: BP 158/102
--- NOTE | 2017-07-15 12:22 | NUR ---
PRN EVAL Pt with ciwa=5
--- NOTE | 2017-07-15 12:22 | NUR ---
PRN EVAL Pt with cows=7
--- NOTE | 2017-07-15 17:01 | NUR ---
NSG ENTRY Pt states not able to urinate. Bladder scan completed with 254 mL results. MD made aware with instructions to encourage po fluid intake.
--- NOTE | 2017-07-15 17:15 | NUR ---
PRN Pt with 2 vomit episodes. zofran im prn per MD order given and tolerated well.
[2017-07-15] MEDS: hydrALAZINE HCL 50 MG TABLET PO PRN (17:28)
[2017-07-15 17:32] VITALS: BP 162/88
--- NOTE | 2017-07-15 18:15 | NUR ---
PRN EVAL Pt with 2 vomit episodes noted in patio. MD made aware with new orders. Awaiting to carry out.
--- NOTE | 2017-07-15 18:18 | NUR ---
END OF SHIFT Pt 22 y/o male admitted for etoh benzo opiate dependence. Pt alert and oriented to name, place,a nd time. Perrla. Skin warm and slightly moist to touch. Respirations even and unlabored. Bilateral hand tremors noted. Pt with periods of chills and sweats throughout the morning. Pt also with periods of anxiety this morning. Pt observed mostly isolative to room throughout the day. Pt was seen by MD today. Pt medication compliant and tolerated well. No ASE noted. Bed on lowest position with side rails x2 up for safety. Call light within reach. No distress noted at this time.
--- NOTE | 2017-07-15 19:15 | NUR ---
START OF SHIFT Received 22 year old male patient admitted on 07/14/17 for ETOH, Benzodiazepine, Heroin, Fentanyl, and Marijuana dependency. Pt is full code with NKA. He reports a PMHx of bronchitis, HTN, seizure (2014), anxiety, depression and schizoaffective disorder. He reports using EOTH 750 mL daily for 1.5 months. Last dose was 07/14/17, Xanax 25 mg daily for 15 months. Last dose was 07/14/17, Klonopin 20 mg QOD for 1.5 months. Last dose was 07/13/17. Heroin 2 grams daily for 1.5 months. Last dose was 07/14/17. Fentanyl 4 tabs daily for 1.5 months. Last dose was 07/13/17. And Marijuana 1/8 oz daily for 1.5 months. Per endorsement, pt received PRN Zofran, Motrin,Robaxin, Valium, Subutex and Hydralazine. He is receiving a 5 day Phenobarbital and 5 day Subutex taper started today and is tolerating well. Pts 1:1 was DCd. He had bladder scan x2 for complaints of urinary retention. Last bladder scan at 1700 with 254mL. Per AM shift, is aware. Pt is alert and oriented x4, breathing even and unlabored. Safety measures in place. Will continue to monitor.
[2017-07-15] MEDS ORDERED: PROMETHAZINE HCL 25 MG/1 ML VIAL IM ONE (19:30)
[2017-07-15 20:00] VITALS: BP 154/76
[2017-07-15] MEDS ORDERED: GABAPENTIN 300 MG CAPSULE PO SCH (21:00)
[2017-07-15] MEDS: CLONIDINE HCL 0.1 MG TABLET PO SCH (21:53)
--- NOTE | 2017-07-15 23:10 | NUR ---
PRN VALIUM Pt complains of anxiety, agitation, and restlessness. CIWA:9. PRN Valium 10 mg administered as ordered. Will monitor effectiveness.
[2017-07-16] VITALS: BP 140/82
--- NOTE | 2017-07-16 00:10 | NUR ---
PRN VALIUM REASSESSMENT PRN medication effective. Pt reports decrease in anxiety/agitation. CIWA:5. Safety measures in place. Will monitor.
--- NOTE | 2017-07-16 04:00 | NUR ---
VITALS REFUSED, COWS/CIWA DEFERRED 0400 vitals refused. COWS and CIWA deferred d/t pt lying in bed with eyes closed noted to be asleep. Breathing even and unlabored. Safety measures in place. Will monitor.
[2017-07-16] MEDS: IBUPROFEN 600 MG TABLET PO PRN ×2 (06:09→08:58)
--- NOTE | 2017-07-16 06:14 | NUR ---
PRN MOTRIN Pt complains of headache 01/23. PRN Motrin administered as ordered. Will monitor effectiveness.
--- NOTE | 2017-07-16 07:14 | NUR ---
PRN MOTRIN REASSESSMENT PRN medication effective. Pt lying in bed with eyes closed noted to be asleep. No facial grimacing noted. Breathing is even and unlabored. Safety measures in place. Will endorse.
--- NOTE | 2017-07-16 07:18 | NUR ---
END OF SHIFT Pt is a 22 year old male patient admitted on 07/14/17 for ETOH, Benzodiazepine, Heroin, Fentanyl, and Marijuana dependency. Pt is full code with NKA. He reports a PMHx of bronchitis, HTN, seizure (2014), anxiety, depression and schizoaffective disorder. He continues on a 5 day Phenobarbital and 5 day Subutex taper started on 07/15/17 and is tolerating well. Pt reported being able to void with no episodes of urinary retention noted. He received PRN Valium at 2317 for CIWA:9. And PRN Motrin at 0615. He slept a total of 6hrs, Intake: 2,265mL, Void: x3, BM:0, COWS:10, CIWA:5. Pt remains alert and oriented x4, breathing even and unlabored. Safety measures in place. Endorsed to AM shift.
--- NOTE | 2017-07-16 07:30 | NUR ---
START OF SHIFT Pt 22 y/o male admitted for etoh benzo, and opiate dependence. Pt received awake in room on bed sitting watching television. Pt alert and oriented to name, place, and time. Perrla. Skin warm and slightly moist to touch. Respirations even and unlabored. Bilateral hand tremors noted. Pt appears slightly anxious this morning. It was reported that pt slept for 6 hours last night. Bed on lowest position with side rails x2 up for safety. Call light within reach. NO distress noted at this time.
[2017-07-16 08:00] VITALS: BP 128/71
[2017-07-16] MEDS: THIAMINE HCL 100 MG TABLET PO SCH (08:58)
[2017-07-16] MEDS: MULTIVITAMINS,THERAPEUTIC TABLET PO SCH (08:58)
[2017-07-16] MEDS: PHENOBARBITAL 60 MG TABLET PO SCH ×3 (08:59→20:23)
[2017-07-16] MEDS: BUPRENORPHINE HCL 2 MG TAB.SUBL SL SCH ×3 (08:59→20:21)
[2017-07-16] MEDS: CLONIDINE HCL 0.1 MG TABLET PO SCH ×3 (08:59→20:22)
[2017-07-16] MEDS: GABAPENTIN 300 MG CAPSULE PO SCH ×3 (08:59→20:22)
[2017-07-16] MEDS: FOLIC ACID 1 MG TABLET PO SCH (08:59)
--- NOTE | 2017-07-16 09:02 | NUR ---
PRN Pt states has generalized body pain 5/10. Motrin po prn per MD order given and tolerated well.
--- NOTE | 2017-07-16 10:02 | NUR ---
PRN MALORIE Pt states pain 09/25. Pt observed walking around the unit.
[2017-07-16] MEDS: hydrALAZINE HCL 50 MG TABLET PO PRN (11:35)
--- NOTE | 2017-07-16 11:37 | NUR ---
PRN Pt with vg=882/92. Hydralazine po prn per MD order given and tolerated well.
[2017-07-16] MEDS ORDERED: BUPRENORPHINE HCL 2 MG TAB.SUBL SL ONE (12:00)
[2017-07-16 12:19] VITALS: BP 150/80
--- NOTE | 2017-07-16 12:37 | NUR ---
PRN EVAL Pt with uh=492/74
[2017-07-16] MEDS: BACLOFEN 10 MG TABLET PO SCH ×2 (14:39→20:22)
[2017-07-16 16:00] VITALS: BP 125/72
--- NOTE | 2017-07-16 18:21 | NUR ---
END OF SHIFT Pt 22 y/o male admitted for etoh benzo opiate dependence. Pt alert and oriented to name, place,a nd time. Perrla. Skin warm and slightly moist to touch. Respirations even and unlabored. Bilateral hand tremors noted. Pt with periods of chills and sweats throughout the morning. Pt also with periods of anxiety this morning. Pt observed mostly in recreation room throughout the morning. Pt was seen by MD today. Pt medication compliant and tolerated well. No ASE noted. Bed on lowest position with side rails x2 up for safety. Call light within reach. No distress noted at this time.
[2017-07-16] MEDS: CLONIDINE HCL 0.1 MG TABLET PO PRN (18:47)
[2017-07-16] MEDS: ONDANSETRON ODT 4 MG TAB.RAPDIS SL PRN (18:47)
[2017-07-16] MEDS: METHOCARBAMOL 750 MG TABLET PO PRN (18:47)
--- NOTE | 2017-07-16 18:49 | NUR ---
PRN Pt states feels anxious. Catapres po prn per MD order given and tolerated well.
--- NOTE | 2017-07-16 18:51 | NUR ---
PRN Pt states has body aches 6/10. Robaxin po prn per MD order given and tolerated well.
--- NOTE | 2017-07-16 18:52 | NUR ---
PRN Pt states feels nauseous. Zofran odt prn per MD order given and tolerated well.
--- NOTE | 2017-07-16 19:45 | NUR ---
Start of Shift Notes Received a 22 y/o male admitted on 07/14/2017 for etoh benzo, and opiate dependence. Px has NKA, on regular diet and on Full Code. Px is on seizure and fall precaution. During the rounds at 1945, px complained of heightened anxiety, stomach cramps, and mild hand tremors. Bed locked on lowest position with side rails padded x2 up for safety. Call light within reach. We'll continue to monitor.
[2017-07-16 20:00] VITALS: BP 128/64
[2017-07-16] MEDS ORDERED: QUETIAPINE FUMARATE 25 MG TABLET PO SCH (21:00)
[2017-07-16] MEDS: diphenhydrAMINE 50 MG CAPSULE PO PRN (23:31)
[2017-07-16] MEDS: KETOROLAC TROMETHAMINE 30 MG INJ IM PRN (23:31)
--- NOTE | 2017-07-16 23:31 | NUR ---
PRN meds Px complained of body aches / particularly on both knees, anxiety is heightened and wanted to sleep. Toradol 30 mg/2 ml, 2 ml given IM as PRN med and Benadryl 50 mg/cap, 1 cap given PO as PRN med. We'll continue to monitor.
[2017-07-17] VITALS: BP 130/71
[2017-07-17] MEDS ORDERED: LORAZEPAM 1 MG TABLET PO ONE (00:10)
[2017-07-17] MEDS ORDERED: BUPRENORPHINE HCL 2 MG TAB.SUBL SL ONE (00:10)
--- NOTE | 2017-07-17 00:18 | NUR ---
1x dose of Ativan and Subutex Dr. Platt put up a 1x dose of Ativan 1 mg/tab, 2 tabs given PO and Subutex 2 mg/tab, 2 tabs given SL as stat order. We'll continue to monitor.
[2017-07-17] MEDS ORDERED: LORAZEPAM 1 MG TABLET ONE (00:31)
[2017-07-17 04:00] VITALS: BP 122/70
--- NOTE | 2017-07-17 04:00 | NUR ---
COWS and CIWA deferred COWS and CIWA deferred due to the px is asleep. To assess if the px is awake per doctor's order. We'll continue to monitor.
--- NOTE | 2017-07-17 07:05 | NUR ---
Start of Shift Endorsement received from nightshift nurse. Pt is a 22 y/o male admitted for Klonopin, Heroin, Fentanyl and alcohol dependence. Pt has been placed on a 5 day Subutex and 5 day Phenobarbital. Pt is experiencing moderate to severe withdrawals AEB CIWA 12, COWS 12 @ midnight. Pt received PRN Toradol and Benadryl. PT reports sleeping on and off for 4 hours. VS WNL. Full Code. PT is alert and oriented x4. Pt is in STABLE condition at this time. Remains compliant with medication and diet regimen. All needs have been met, All safety measures in place per hospital policy. Bed in lowest position, side rails up x2, call-light within reach. Will continue to monitor
--- NOTE | 2017-07-17 07:17 | NUR ---
End of Shift Notes 22 y/o male admitted on 07/14/2017 for etoh benzo, and opiate dependence. Px has NKA, on regular diet and on Full Code. Px is on seizure and fall precaution. During the shift, Px complained of body aches 8/10 particularly on both knees, anxiety is heightened and wanted to sleep. Toradol 30 mg/2 ml, 2 ml given IM as PRN med and Benadryl 50 mg/cap, 1 cap given PO as PRN med. At 0018, Dr. Platt put up a 1x dose of Ativan 1 mg/tab, 2 tabs given PO and Subutex 2 mg/tab, 2 tabs given SL as stat order. Oral intake of 1,800 ml, voided 3x, BM 1x. Slept only for 1 hour . Bed locked on lowest position with side rails padded x2 up for safety. Call light within reach. We'll continue to monitor.
[2017-07-17 08:20] VITALS: BP 130/64
[2017-07-17] MEDS: THIAMINE HCL 100 MG TABLET PO SCH (09:00)
[2017-07-17] MEDS ORDERED: BUPRENORPHINE HCL 2 MG TAB.SUBL SL SCH (09:00)
[2017-07-17] MEDS: BACLOFEN 10 MG TABLET PO SCH ×3 (09:00→20:58)
[2017-07-17] MEDS: FOLIC ACID 1 MG TABLET PO SCH (09:00)
[2017-07-17] MEDS: CLONIDINE HCL 0.1 MG TABLET PO SCH ×3 (09:00→20:58)
[2017-07-17] MEDS: GABAPENTIN 300 MG CAPSULE PO SCH ×3 (09:00→20:58)
[2017-07-17] MEDS: MULTIVITAMINS,THERAPEUTIC TABLET PO SCH (09:00)
[2017-07-17] MEDS: PHENOBARBITAL 60 MG TABLET PO SCH ×4 (09:00→20:59)
[2017-07-17 12:00] VITALS: BP 131/77
[2017-07-17] MEDS: IBUPROFEN 600 MG TABLET PO PRN (12:21)
[2017-07-17] MEDS: CLONIDINE HCL 0.1 MG TABLET PO PRN (12:23)
[2017-07-17] MEDS: ONDANSETRON ODT 4 MG TAB.RAPDIS SL PRN (12:23)
--- NOTE | 2017-07-17 12:24 | NUR ---
PRN Medications Administered PRN Clonidine, Motrin, Bentyl and Zofran for withdrawal symptoms of generalized body aches, nausea, stomach cramps and chills.
--- NOTE | 2017-07-17 13:15 | NUR ---
Medication Re-assessment Medications were effective AEB Pt reports 3/10 pain down from 6/10. PT also reports being able to take a 40 minute nap.
[2017-07-17] MEDS: BUPRENORPHINE HCL 2 MG TAB.SUBL SL SCH ×2 (15:19→20:59)
[2017-07-17 16:00] VITALS: BP 145/87
--- NOTE | 2017-07-17 18:47 | NUR ---
End of Shift Endorsement given to nightshift nurse. Pt is a 22 y/o male admitted for Klonopin, Heroin, Fentanyl and alcohol dependence. Pt has been placed on a 5 day Subutex and 5 day Phenobarbital. Pt is experiencing moderate to severe withdrawals AEB CIWA 6, COWS 6 @ 1600. Pt received PRN Zofran, Clonidine, Motrin and Bentyl. PT participated in groups and activities. Educated pt on diet and medication regimen. VS WNL. Full Code. PT is alert and oriented x4. Pt is in STABLE condition at this time. Remains compliant with medication and diet regimen. All needs have been met, All safety measures in place per hospital policy. Bed in lowest position, side rails up x2, call-light within reach. Will continue to monitor
--- NOTE | 2017-07-17 19:00 | NUR ---
Start of Shift Patient Received. Patient is in activities room participating in group meeting. Patient is a 22 year old male admitted on 07/14/17 for ETOH, Benzo, and opiate Dependence under the care of Dr. Platt. Patient continues on 5 day Phenobarbital and 5 day Subutex taper. He verbalizes no known allergies, wishes to be full code, following a regular diet, placed on fall and seizure precautions, and skin noted intact. Past medical history noted as Bronchitis, HTN, Seizure x1 in 2014, Anxiety, Depression, Schizoaffective Disorder. Per endorsement, No PRN medications administered. Last noted COWS 6 and CIWA 6. All needs attended to promptly. Will continue plan of care as ordered.
[2017-07-17 20:07] VITALS: BP_SYST 129; BP_DIAS 68; BP_DIAS 78
[2017-07-17] MEDS: ONDANSETRON 4 MG/2 ML VIAL IM PRN (20:59)
[2017-07-17] MEDS: KETOROLAC TROMETHAMINE 30 MG INJ IM PRN (20:59)
[2017-07-17] MEDS: diphenhydrAMINE 50 MG CAPSULE PO PRN (21:00)
--- NOTE | 2017-07-17 21:00 | NUR ---
PRN Medication Administration Patient verbalized increased nausea, pain of 8/10 due to generalized body aches, and inability of falling asleep. PRN Zofran, PRN Toradol, and PRN Benadryl administered as per order. will continue to monitor.
--- NOTE | 2017-07-17 22:00 | NUR ---
PRN Medication Reassessment Patient is noted in bed sleeping. Breathing even and non labored. Patient was given PRN Benadryl, Zofran, and Toradol with medications noted to be effective. No facial grimacing noted. No restlessness or discomfort noted. All needs attended to promptly. Will continue to monitor.
[2017-07-18 00:12] VITALS: BP 129/74
[2017-07-18 04:06] VITALS: BP 133/76
[2017-07-18] MEDS: IBUPROFEN 600 MG TABLET PO PRN ×2 (06:02→15:05)
--- NOTE | 2017-07-18 06:06 | NUR ---
PRN Medication Administration Patient is noted awake and verbalizing increased pain or 5/10 due to headache. PRN Motrin administered. Will continue to monitor.
--- NOTE | 2017-07-18 07:10 | NUR ---
Start of Shift Endorsement received from nightshift nurse. Pt is a 22 y/o male admitted for Klonopin, Heroin, Fentanyl and alcohol dependence. Pt has been placed on a 5 day Subutex and 5 day Phenobarbital. Pt is experiencing moderate to severe withdrawals AEB CIWA 6, COWS 6 @ midnight. Pt received PRN Toradol, Benadryl, Motrin and Zofran. PT reports sleeping 6 hours. VS WNL. Full Code. PT is alert and oriented x4. Pt is in STABLE condition at this time. Remains compliant with medication and diet regimen. All needs have been met, All safety measures in place per hospital policy. Bed in lowest position, side rails up x2, call-light within reach. Will continue to monitor
--- NOTE | 2017-07-18 07:13 | NUR ---
End of Shift Patient is in bed awake, alert and verbally responsive. Breathing even and non labored. No signs of pain or discomfort noted. Patient is a 22 year old male admitted on 07/14/17 for ETOH, Benzo, and opiate Dependence under the care of Dr. Platt. Patient continues on 5 day Phenobarbital and 5 day Subutex taper. No Known Allergies, Full Code, Regular Diet, placed on fall and seizure precautions, and skin noted intact. Past medical history noted as Bronchitis, HTN, Seizure x1 in 2014, Anxiety, Depression, Schizoaffective Disorder. Patient received PRN Zofran, Toradol, Motrin and Benadryl with medications noted to be effective. Last noted COWS 6 and CIWA 6. All needs attended to promptly. Will endorse to continue plan of care as ordered.
[2017-07-18 08:00] VITALS: BP 120/78
[2017-07-18] MEDS: BACLOFEN 10 MG TABLET PO SCH ×3 (08:39→21:00)
[2017-07-18] MEDS: THIAMINE HCL 100 MG TABLET PO SCH (08:39)
[2017-07-18] MEDS: CLONIDINE HCL 0.1 MG TABLET PO SCH ×3 (08:40→21:00)
[2017-07-18] MEDS: MULTIVITAMINS,THERAPEUTIC TABLET PO SCH (08:40)
[2017-07-18] MEDS: PHENOBARBITAL 60 MG TABLET PO SCH ×3 (08:40→21:00)
[2017-07-18] MEDS: BUPRENORPHINE HCL 2 MG TAB.SUBL SL SCH ×3 (08:40→21:00)
[2017-07-18] MEDS: GABAPENTIN 300 MG CAPSULE PO SCH ×3 (08:40→21:00)
[2017-07-18] MEDS: FOLIC ACID 1 MG TABLET PO SCH (08:40)
[2017-07-18] MEDS: ONDANSETRON ODT 4 MG TAB.RAPDIS SL PRN ×2 (08:45→22:14)
[2017-07-18 12:00] VITALS: BP 128/66
[2017-07-18] MEDS: ONDANSETRON 4 MG/2 ML VIAL IM PRN (15:41)
[2017-07-18] MEDS: ACETAMINOPHEN 325 MG TABLET PO PRN ×2 (15:41→22:08)
[2017-07-18 16:00] VITALS: BP 130/89
--- NOTE | 2017-07-18 18:51 | NUR ---
End of Shift Endorsement given to nightshift nurse. Pt is a 22 y/o male admitted for Klonopin, Heroin, Fentanyl and alcohol dependence. Pt has been placed on a 5 day Subutex and 5 day Phenobarbital. Pt is experiencing moderate to severe withdrawals AEB CIWA 5, COWS 6 @ 1600. Pt received PRN Zofran, Tylenol, Motrin. PT participated in groups and activities. Educated pt on S/E of withdrawals and medication S/E. VS WNL. Full Code. PT is alert and oriented x4. Pt is in STABLE condition at this time. Remains compliant with medication and diet regimen. All needs have been met, All safety measures in place per hospital policy. Bed in lowest position, side rails up x2, call-light within reach. Will continue to monitor
[2017-07-18 20:00] VITALS: BP 149/85
--- NOTE | 2017-07-18 20:00 | NUR ---
Start of Shift Notes Received a 22 y/o male admitted on 07/14/2017 for Klonopin, Heroin, Fentanyl and alcohol dependence. Px has been placed on a 5 day Subutex and 5 day Phenobarbital. Px has NKA, on regular diet and on Full Code. Px is alert and oriented x4. During the rounds at 2000, px complained of mild H/A and mild anxiety. All safety measures in place per hospital policy. Bed in lowest position, side rails up x2, call-light within reach. We'll continue to monitor
--- NOTE | 2017-07-18 22:10 | NUR ---
PRN meds Px complained of mild H/A and mild nausea. Tylenol 325 mg/tab, 2 tabs given PO and Zofran 4mg/tab, 1 tab given SL as PRN med. We'll continue to monitor.
--- NOTE | 2017-07-18 23:15 | NUR ---
Reassessment of Nausea Px verbalized that his nausea improved after an hour of administration of Zofran 4 mg/tab, 1 tab SL. We'll continue to monitor.
[2017-07-19] VITALS: BP 132/81
[2017-07-19] MEDS: IBUPROFEN 600 MG TABLET PO PRN ×3 (02:40→22:25)
[2017-07-19] MEDS: ONDANSETRON ODT 4 MG TAB.RAPDIS SL PRN ×2 (02:41→09:47)
--- NOTE | 2017-07-19 02:41 | NUR ---
PRN meds Px complained of 5/10 H/A and nausea. Motrin 600 mg/tab, 1 tab given PO and Zofran 4 mg/tab, 1 tab given SL as PRN meds. We'll continue to monitor.
[2017-07-19 04:00] VITALS: BP 130/83
--- NOTE | 2017-07-19 07:09 | NUR ---
End of Shift Notes 22 y/o male admitted on 07/14/2017 for Klonopin, Heroin, Fentanyl and alcohol dependence. Px has been placed on a 5 day Subutex and 5 day Phenobarbital. Px has NKA, on regular diet and on Full Code. Px is alert and oriented x4. During the shift, px complained of mild H/A and mild anxiety. Tylenol 325 mg/tab, 2 tabs given PO and Zofran 4mg/tab, 1 tab given SL as PRN med. At 0241, Px complained of 5/10 H/A and nausea. Motrin 600 mg/tab, 1 tab given PO and Zofran 4 mg/tab, 1 tab given SL as PRN meds. Oral intake of 2 L, voided 4x, BM 1x. Slept for 6 hours. All safety measures in place per hospital policy. Bed in lowest position, side rails up x2, call-light within reach. We'll continue to monitor
--- NOTE | 2017-07-19 07:15 | NUR ---
Start of Shift Endorsement received from nightshift nurse. PT is a 22 y/o male admitted for Opiates, Benzo and Alcohol dependence. Pt has been placed on a 5 day Subutex and 5 day Phenobarbital taper. PT is moderately withdrawing AEB COWS 6, CIWA 6. Pt received PRN Motrin and Zofran x2. Pt slept 6 hours. VS WNL. full Code. Regular Diet. PT is alert and oriented x4. Pt is in STABLE condition at this time. Remains compliant with medication and diet regimen. All needs have been met, All safety measures in place per hospital policy. Bed in lowest position, side rails up x2, call-light within reach. Will continue to monitor
[2017-07-19 08:00] VITALS: BP 121/55
[2017-07-19] MEDS: THIAMINE HCL 100 MG TABLET PO SCH (09:06)
[2017-07-19] MEDS: MULTIVITAMINS,THERAPEUTIC TABLET PO SCH (09:06)
[2017-07-19] MEDS: BACLOFEN 10 MG TABLET PO SCH (09:06)
[2017-07-19] MEDS: FOLIC ACID 1 MG TABLET PO SCH (09:06)
[2017-07-19] MEDS: GABAPENTIN 300 MG CAPSULE PO SCH ×3 (09:06→22:16)
[2017-07-19] MEDS: PHENOBARBITAL 60 MG TABLET PO SCH ×2 (09:07→22:17)
[2017-07-19] MEDS: BUPRENORPHINE HCL 2 MG TAB.SUBL SL SCH ×2 (09:08→22:17)
[2017-07-19] MEDS: CLONIDINE HCL 0.1 MG TABLET PO SCH ×3 (09:09→22:16)
[2017-07-19] MEDS: ACETAMINOPHEN 325 MG TABLET PO PRN (09:25)
--- NOTE | 2017-07-19 09:25 | NUR ---
PRN Medications Pt reports 610 headache. Administered PRN Tylenol 650mg. Will Re-assess.
--- NOTE | 2017-07-19 09:45 | NUR ---
PRN Zofran Administered PRN Zofran 4mg for reports nausea.
--- NOTE | 2017-07-19 10:15 | NUR ---
Medication Re-assessment Pt reports 3/10 headache at this time. Medication was effective.
--- NOTE | 2017-07-19 10:45 | NUR ---
Medication Re-assessment Pt reports nausea has ceased. Medication was effective.
[2017-07-19] MEDS ORDERED: METHOCARBAMOL 750 MG TABLET PO PRN (11:15)
[2017-07-19] MEDS ORDERED: ONDANSETRON ODT 4 MG TAB.RAPDIS SL PRN (11:30)
[2017-07-19 12:00] VITALS: BP 105/72
--- NOTE | 2017-07-19 12:57 | NUR ---
PRN Motrin Administered PRN Motrin for 5/10 headache reported by the pt.
[2017-07-19] MEDS ORDERED: SCOPOLAMINE HYDROBROMIDE 1.5 MG PATCH TD SCH (13:00)
--- NOTE | 2017-07-19 13:45 | NUR ---
Medication Re-assessment Pt reports 2/10 headache at this time. Medication was effective.
[2017-07-19 16:00] VITALS: BP 128/75
--- NOTE | 2017-07-19 19:13 | NUR ---
End of Shift Endorsement given to nightshift nurse. Pt is a 22 y/o male admitted for Klonopin, Heroin, Fentanyl and alcohol dependence. Pt has been placed on a 5 day Subutex and 5 day Phenobarbital. Pt is experiencing moderate to severe withdrawals AEB CIWA4, COWS 5 @ 1600. Pt received PRN Zofran, Tylenol, Motrin. PT participated in group and activities. PT reported increased fatigue due to inability to sleep at night. Requested to be allowed to sleep instead of going to group. Reinforced education on S/E of withdrawals and medication S/E. Educated pt on Diet regimen, encouraged pt to drink more fluids. Education was successful AEB Intake: 3460ml. Void x4, BM x1. VS WNL. Full Code. PT is alert and oriented x4. Pt is in STABLE condition at this time. Remains compliant with medication and diet regimen. All needs have been met, All safety measures in place per hospital policy. Bed in lowest position, side rails up x2, call-light within reach. Will continue to monitor
--- NOTE | 2017-07-19 19:15 | NUR ---
Start of shift note Received report from day shift nurse. Pt is a 22 yo male, A+Ox4, presenting to [facility] for ETOH/Opiate/Benzo dependence. Pt has NKA, is on Full code status, and on Regular diet. Pt is on Fall and Seizure precautions. Pt has HX of Bronchitis, HTN, Seizure, Anxiety, Depression, and Schizophrenia. Pt is on 5 day Phenobarbital and 5 day Subutex tapers, tolerated well. No s/s of distress noted at this time. Respirations even and unlabored. Will continue to monitor.
[2017-07-19 20:10] VITALS: BP 125/75
--- NOTE | 2017-07-19 22:25 | NUR ---
PRN Zofran and Motrin Pt c/o headache and nausea and requested for PRN Zofran and Motrin. Medications given and tolerated well. Will reassess within 1 HR. Will continue to monitor.
--- NOTE | 2017-07-19 23:20 | NUR ---
PRN Zofran and Motrin Reassessment Medication effective. Pt is resting well in bed. No s/s of ASE/distress noted at this time. Respirations even and unlabored. Will continue to monitor.
[2017-07-20 00:12] VITALS: BP 124/55
[2017-07-20 04:40] VITALS: BP 127/63
--- NOTE | 2017-07-20 06:36 | NUR ---
End of shift note Pt is a 22 yo male, A+Ox4, presenting to [facility] for ETOH/Opiate/Benzo dependence. Pt has NKA, is on Full code status, and on Regular diet. Pt is on Fall and Seizure precautions. Pt has HX of Bronchitis, HTN, Seizure, Anxiety, Depression, and Schizophrenia. Pt is on 5 day Phenobarbital and 5 day Subutex tapers, tolerated well. Pt was given PRN Zofran and Motrin @2225. Pt slept for a total of 7 HRS. Last COWS: 2 and CIWA: 3 @0400. No s/s of distress noted at this time. Respirations even and unlabored. Will endorse to day shift nurse.
--- NOTE | 2017-07-20 07:10 | NUR ---
Start of Shift Endorsement received from nightshift nurse. PT is a 22 y/o male admitted for Opiates, Benzo and Alcohol dependence. Pt has been placed on a 5 day Subutex and 5 day Phenobarbital taper. PT is moderately withdrawing AEB COWS 2, CIWA 3. Pt received PRN Motrin and Zofran. Pt reports sleeping 7 hours. VS WNL. full Code. Regular Diet. PT is alert and oriented x4. Pt is in STABLE condition at this time. Remains compliant with medication and diet regimen. All needs have been met, All safety measures in place per hospital policy. Bed in lowest position, side rails up x2, call-light within reach. Will continue to monitor
[2017-07-20 08:00] VITALS: BP 110/58
[2017-07-20] MEDS: GABAPENTIN 300 MG CAPSULE PO SCH ×3 (08:55→21:38)
[2017-07-20] MEDS: MULTIVITAMINS,THERAPEUTIC TABLET PO SCH (08:55)
[2017-07-20] MEDS: THIAMINE HCL 100 MG TABLET PO SCH (08:55)
[2017-07-20] MEDS: CLONIDINE HCL 0.1 MG TABLET PO SCH ×3 (08:56→21:39)
[2017-07-20] MEDS: FOLIC ACID 1 MG TABLET PO SCH (08:56)
[2017-07-20] MEDS ORDERED: BUPRENORPHINE HCL 2 MG TAB.SUBL SL SCH (09:00)
[2017-07-20] MEDS ORDERED: PHENOBARBITAL 60 MG TABLET PO SCH (09:00)
[2017-07-20 12:00] VITALS: BP 115/50
[2017-07-20] MEDS ORDERED: SUMATRIPTAN SUCCINATE 6 MG/0.5 ML VIAL SQ ONE (12:45)
[2017-07-20] MEDS ORDERED: NICOTINE 14 MG/24HR PATCH TD PRN (13:45)
[2017-07-20] MEDS ORDERED: NICOTINE POLACRILEX 4 MG GUM-PK OF TEN BC PRN (13:45)
[2017-07-20 16:00] VITALS: BP 145/83
[2017-07-20] MEDS ORDERED: GABA-534 PO (18:26)
[2017-07-20] MEDS ORDERED: ONDA4TAB11 SL (18:26)
[2017-07-20] MEDS ORDERED: CLON0.1T14 PO (18:26)
[2017-07-20] MEDS ORDERED: METH-406 PO (18:26)
[2017-07-20] MEDS ORDERED: NICO1PAT25 TD (18:26)
[2017-07-20] MEDS ORDERED: NICO4GUM38 BC (18:26)
--- NOTE | 2017-07-20 19:10 | NUR ---
End of Shift Endorsement given to nightshift nurse. Pt is a 22 y/o male admitted for Klonopin, Heroin, Fentanyl and alcohol dependence. Pt has been placed on a 5 day Subutex and 5 day Phenobarbital. Pt is experiencing moderate to severe withdrawals AEB CIWA5, COWS 3 @ 1600. Pt did not receive any PRN medications. PT participated in group and activities. Provided discharge education. Completed all discharge documentation. Pt has completed his taper and has been scheduled to be discharged tomorrow, 07/20/17. Intake: 3450ml. Void x3, BM x1. VS WNL. Full Code. PT is alert and oriented x4. Pt is in STABLE condition at this time. Remains compliant with medication and diet regimen. All needs have been met, All safety measures in place per hospital policy. Bed in lowest position, side rails up x2, call-light within reach. Will continue to monitor
[2017-07-20 20:00] VITALS: BP 142/86
--- NOTE | 2017-07-20 20:00 | NUR ---
START OF SHIFT NOTE RECEIVED REPORT FROM DAY SHIFT NURSE. PATIENT IS A 22 YEAR OLD MALE ADMITTED FOR ETOH/BENZO/OPIATE DEPENDENCE. PATIENT COMPLETED 5 DAY ATIVAN AND 5 DAY SUBUTEX TAPER. PATIENT IS MEDICALLY CLEARED TO BE DISCHARGE TOMORROW. PATIENT COMPLIANT WITH MEDICATIONS AND TREATMENT PLAN. SKIN INTACT. PATIENT DID NOT REQUIRE ANY PRN MEDICATION . LAST COWS 2 AND CIWA 5. RECEIVED PATIENT ALERT AND ORIENTED X 4. RESPIRATION EVEN AND UNLABORED. PATIENT STATES HES IS BETTER AND READY TO GO TO LEAVE TOMORROW. NO N/V. DENIES ANY PAIN. ON FALL/SEIZURE PRECAUTION. SAFETY MEASURES IN PLACE. CALL LIGHT IN REACH. WILL CONTINUE TO MONITOR
--- NOTE | 2017-07-21 | NUR ---
COWS/CIWA DEFERRED PATIENT SLEEPING. COWS AND CIWA DEFERRED. RESPIRATION EVEN AND UNLABORED. SAFETY MEASURES IN PLACE. CALL LIGHT IN REACH. WILL CONTINUE TO MONITOR.
--- NOTE | 2017-07-21 04:00 | NUR ---
COWS/CIWA DEFERRED PATIENT SLEEPING. COWS AND CIWA DEFERRED. RESPIRATION EVEN AND UNLABORED. SAFETY MEASURES IN PLACE. CALL LIGHT IN REACH. WILL CONTINUE TO MONITOR.
--- NOTE | 2017-07-21 06:58 | NUR ---
END OF SHIFT NOTE PATIENT IS A 22 YEAR OLD MALE ADMITTED FOR ETOH/BENZO/OPIATE DEPENDENCE. PATIENT COMPLETED 5 DAY ATIVAN AND 5 DAY SUBUTEX TAPER. PATIENT IS MEDICALLY CLEARED TO BE DISCHARGE TODAY. PATIENT COMPLIANT WITH MEDICATIONS AND TREATMENT PLAN. SKIN INTACT. PATIENT DID NOT REQUIRE ANY PRN MEDICATION . PATIENT REMAIN ALERT AND ORIENTED X 4. RESPIRATION EVEN AND UNLABORED. SAFETY MEASURES IN PLACE. CALL LIGHT IN REACH. WILL CONTINUE TO MONITOR. ON FALL/SEIZURE PRECAUTION. WILL CONTINUE TO MONITOR. SLEPT 5 HOURS. FLUID INTAKE 1,500 ML. VOIDED X 2 . NO BM. LAST COWS 0 AND CIWA 0.
--- NOTE | 2017-07-21 07:22 | NUR ---
START OF SHIFT NOTE: Received report from hourly shift nurse. PT is a 22 y/o male admitted for Opiates, Benzo and Alcohol dependence. Pt completed a 5 day Subutex and 5 day Phenobarbital taper. To be discharged today. Pt alert and oriented X4. Color good, skin warm and dry. Respirations even and unlabored. Safety precautions observed. Call light within reach.
[2017-07-21 08:00] VITALS: BP 128/86
[2017-07-21 08:13] VITALS: BP 100/46
[2017-07-21] MEDS: CLONIDINE HCL 0.1 MG TABLET PO SCH (08:13)
[2017-07-21] MEDS: FOLIC ACID 1 MG TABLET PO SCH (08:17)
[2017-07-21] MEDS: MULTIVITAMINS,THERAPEUTIC TABLET PO SCH (08:17)
[2017-07-21] MEDS: GABAPENTIN 300 MG CAPSULE PO SCH (08:17)
[2017-07-21] MEDS: THIAMINE HCL 100 MG TABLET PO SCH (08:17)
--- NOTE | 2017-07-21 08:30 | NUR ---
VSS Pt signed discharge papers. No home meds.
--- NOTE | 2017-07-21 10:33 | NUR ---
Pt discharged in stable condition with all valuables and belongings. No home meds. Denies HI/SI. To home via private car.
== END 2017-07-21 10:30 | disposition home or self-care (01) | DRG 895 ==
LOC: SRC 07-14 13:22
PROVIDERS: ADMIT Internal Medicine; ATTEND Internal Medicine
PROC: HZ2ZZZZ Detoxification Services for Substance Abuse Treatment (ICD-10-PCS; principal; 2017-07-14)
PROC: HZ31ZZZ Individual Counseling for Substance Abuse Treatment, Behavioral (ICD-10-PCS; 2017-07-15)
PROC: HZ41ZZZ Group Counseling for Substance Abuse Treatment, Behavioral (ICD-10-PCS; 2017-07-16)
DX: F10.232 Alcohol dependence with withdrawal with perceptual disturbance (principal); Z68.41 Body mass index [BMI] 40.0-44.9, adult; F13.232 Sedative, hypnotic or anxiolytic dependence with withdrawal with perceptual disturbance; F11.23 Opioid dependence with withdrawal; F12.90 Cannabis use, unspecified, uncomplicated; F31.9 Bipolar disorder, unspecified; E66.9 Obesity, unspecified; Y90.8 Blood alcohol level of 240 mg/100 ml or more; Z91.89 Other specified personal risk factors, not elsewhere classified; G47.00 Insomnia, unspecified; F17.210 Nicotine dependence, cigarettes, uncomplicated; I10 Essential (primary) hypertension; Z81.1 Family history of alcohol abuse and dependence; G43.909 Migraine, unspecified, not intractable, without status migrainosus; Z59.1 Inadequate housing; Z81.8 Family history of other mental and behavioral disorders; Z79.899 Other long term (current) drug therapy
CPT/HCPCS: 36415; 70030-TC; 80307; 80349; 83735; 85025; 86580; 86592; 86705; 86803; 87340; 87806; G0480; J1885; J2405; J2550; J3030; J8499; Q0162; Q0163

== ENCOUNTER 2017-09-20 00:06 | Inpatient (IN) | payer BC, OTHER ==
[~2017-09-20] VITALS: Ht 172.7 cm; Wt 113.4 kg
[~2017-09-20 00:06] MED LIST changes: -BACL20TA PO; -DICY20TA28 PO; -HYDR-3895 PO; -IBUP-1955 PO; +NICO-671 TD; +NICO4GUM38 BC; -TOPI25TA PO; -TRAZ-144 PO
--- NOTE | 2017-09-20 01:50 | NUR ---
Pre-assessment: Pt seen in the intake office. Pt is 22M, AOx4 without s/s of acute distress noted. Pt stated that he has previously been admitted to this facility and would like to be admitted for detox. Pt stated that he is currently using Heroin, Xanax, and drinking ETOH (Whiskey or Vodka). BP: 141/77, HR: 84, RR: 20, SpO2: 95%, T: 98.6. Pain level: 7/10. Pt is mildly intoxicated from drinking wine prior to admission. Pt reports NKA. Explained unit policies and procedures to pt. Pt verbalized understanding. Will admit pt under the care of Dr. Kelsey. Further assessment to be done on unit.
[2017-09-20] MEDS ORDERED: BUPRENORPHINE HCL 2 MG TAB.SUBL SL PRN (02:00)
[2017-09-20] MEDS ORDERED: IBUPROFEN 400 MG TABLET PO PRN (02:00)
[2017-09-20] MEDS ORDERED: MAGNESIUM HYDROXIDE 30 ML LIQUID UDC PO PRN (02:00)
[2017-09-20] MEDS ORDERED: MIRALAX 17 GM POWD.PACK PO PRN (02:00)
[2017-09-20] MEDS ORDERED: LORAZEPAM 2 MG/1 ML VIAL IM PRN (02:00)
[2017-09-20] MEDS ORDERED: DIAZEPAM 10 MG TABLET PO PRN ×2 (02:00)
[2017-09-20] MEDS ORDERED: CLONIDINE HCL 0.1 MG TABLET PO PRN (02:00)
[2017-09-20] MEDS ORDERED: DIAZEPAM 5 MG TABLET PO PRN (02:00)
[2017-09-20] MEDS ORDERED: LOPERAMIDE HCL 2 MG CAPSULE PO PRN ×2 (02:00)
[2017-09-20] MEDS ORDERED: MAG HYDROX/AL HYDROX/SIMETH 30 ML LIQUID UDC PO PRN (02:00)
[2017-09-20] MEDS ORDERED: ACETAMINOPHEN 325 MG TABLET PO PRN (02:00)
[2017-09-20] MEDS ORDERED: THIAMINE HCL 200 MG/2 ML VIAL IM ONE (02:00)
[2017-09-20] MEDS ORDERED: DICYCLOMINE HCL 20 MG TABLET PO PRN (02:00)
[2017-09-20 02:03] VITALS: BP 141/77
--- NOTE | 2017-09-20 02:03 | NUR ---
Admission Note: Pt arrived on unit at 0203. Pt oriented to unit. Weight: 254 lbs, Height 58. Skin assessment done and noted intact skin. Pt reports 7/10 generalized body pain at this time. Respirations even and unlabored. Bowel sounds active x4 quadrants. Pt reports NKA and follows regular diet at home. Pt full code status at this time. Pt reported current Heroin, ETOH, and Benzo dependence: 1. Heroin: Pt smokes 1g of Heroin daily for the past 1.5 months. Pt last used Heroin on 09/19/17. Pt has been using Heroin for the past 6 years. 2. ETOH: Pt drinks either Whiskey or Vodka 750ml daily for the past 2 months. Pt last drank ETOH minutes prior to admission on 09/20/17 @ 0150. Pt has been drinking ETOH for the past 6 years. 3. Xanax: Pt uses 8mg of Xanax daily for the past 2 months. Pt last used Xanax on 09/16/17. Pt has been using Xanax for the past 6 years. Initial COWS assessment is 8 and Initial CIWA assessment is 4. Pt noted to be mildly intoxicated. Pt reports medical hx of sz, HTN, respiratory failure, R torn meniscus, anxiety, depression, bipolar, and schizoaffective disorder. Pt reported intermittent cigarette smoking. Pt stated he currently does not have a Primary Care Physician. Pt has been admitted to [facility] [place] multiple times. Last admission was June 2017. Pt reported not taking any home medications. Bed in lowest position. Call light functioning and within reach. All needs attended and met.
[2017-09-20 02:30] LABS: BASOPHILS # (AUTO) 0.1 K/uL (0.0-8.0); BASOPHILS % (AUTO) 0.6 % (0.0-2.0); EOSINOPHILS # (AUTO) 0.1 K/uL (0.0-0.7); EOSINOPHILS % (AUTO) 0.6 % (0.0-7.0); HEMATOCRIT 45.9 % (36.7-47.1); HEMOGLOBIN 15.9 g/dL (12.5-16.3); LYMPHOCYTES # (AUTO) 2.3 K/uL (20.0-40.0); LYMPHOCYTES % (AUTO) 24.4 % (20.5-51.5); MEAN CORPUSCULAR HEMOGLOBIN 29.2 uug (23.8-33.4); MEAN CORPUSCULAR HGB CONC 35 g/dL (32.5-36.3); MEAN CORPUSCULAR VOLUME 84.4 fL (73.0-96.2); MONOCYTES # (AUTO) 0.6 K/uL (2.0-10.0); MONOCYTES % (AUTO) 6.8 % (0.0-11.0); NEUTROPHILS # (AUTO) 6.3 K/uL (1.8-8.9); NEUTROPHILS % (AUTO) 67.6 % (38.5-71.5); PLATELET COUNT (AUTO) 212 K/uL (152-348); RED BLOOD CELL COUNT(AUTO) 5.44 MIL/uL (4.06-5.63); WHITE BLOOD COUNT (AUTO) 9.3 K/uL (3.6-10.2)
[2017-09-20] MEDS: diphenhydrAMINE 50 MG CAPSULE PO PRN ×2 (02:34→23:53)
[2017-09-20] MEDS: METHOCARBAMOL 750 MG TABLET PO PRN ×2 (02:35→23:53)
[2017-09-20] MEDS: ONDANSETRON ODT 4 MG TAB.RAPDIS SL PRN ×3 (02:35→20:55)
--- NOTE | 2017-09-20 02:35 | NUR ---
PRN Robaxin, Motrin, Zofran, Benadryl: Pt reported 7/10 generalized body pain. Pt stated he feels muscle aches all over his body. PRN Robaxin and PRN Motrin given as ordered. Pt stated feeling Nausea. PRN Zofran SL given as ordered. Pt also requested medicine for sleep. PRN Benadryl given as ordered.
[2017-09-20 02:39] LABS: BILIRUBIN,TOTAL 0.2 mg/dL (0.2-1.0); MAGNESIUM 2.1 mg/dL (1.8-2.4); POTASSIUM 3.9 mmol/L (3.5-5.1)
[2017-09-20 02:50] LABS: THYROID STIMULATING HORMONE 1.827 mIU/mL (0.358-3.740)
[2017-09-20 02:53] LABS: *AMPHETAMINE, URINE NEGATIVE (NEGATIVE); *BARBITURATE, URINE NEGATIVE (NEGATIVE); *CANNABINOID, URINE POSITIVE (NEGATIVE); *COCCAINE, URINE NEGATIVE (NEGATIVE); *OPIATE, URINE NEGATIVE (NEGATIVE); *PHENCYCLIDINE SCREEN,URINE NEGATIVE (NEGATIVE)
--- NOTE | 2017-09-20 03:00 | NUR ---
Zofran Reassessment: Pt reported relief from nausea. Zofran PRN effective.
--- NOTE | 2017-09-20 03:30 | NUR ---
Robaxin, Motrin Reassessment: Pt in bed with eyes closed. No facial grimacing or irregular movements observed. Unable to reassess PRN Robaxin and PRN Motrin at this time.
[2017-09-20 04:00] VITALS: BP 139/76
--- NOTE | 2017-09-20 05:20 | NUR ---
PRN Robaxin, Motrin, Zofran, Benadryl: Pt reported 7/10 generalized body pain. Pt stated he feels muscle aches all over his body. PRN Robaxin and PRN Motrin given as ordered. Pt stated feeling Nausea. PRN Zofran SL given as ordered. Pt also requested medicine for sleep. PRN Benadryl given as ordered. Addendum: 09/20/17 at 0523 by TONY GONSALEZ RN ERROR WRONG TIME
--- NOTE | 2017-09-20 07:30 | NUR ---
End of Shift Note: Pt is 22M, admitted for Opiate, ETOH, and Benzo Dependence. Pt is AOx4 without s/s of acute distress noted. Pt is full code, on regular diet, and on fall/seizure precautions. Pt noted with NKA. Pt reports hx of sz, HTN, respiratory failure, R torn meniscus, anxiety, depression, bipolar, and schizoaffective disorder. Pt currently on PRN Subutex and PRN Valium to manage withdrawal symptoms. Pt slept for 3 hours. Respirations even and unlabored. Last COWS was 4 and last CIWA was 1 at 0400. PRN Robaxin and Motrin given for generalized body pain. PRN Zofran given for nausea. PRN Benadryl given for sleep. Fall and Sz precautions observed. Bed in lowest position. Side rails up x2. Call light functioning and within reach. All needs attended and met. Will endorse to day shift nurse.
--- NOTE | 2017-09-20 07:50 | NUR ---
Start of shift note; Received report from night nurse. Patient is a 22 year old male admitted on 09/20/17 for Opiate/ ETOH/ Benzodiazepine dependence. Patient reported history of Seizures, HTN, respiratory failure, anxiety, depression, bipolar disorder and schizoaffective disorder. All safety measures secured. Will continue to monitor patient. Addendum: 09/20/17 at 0756 by SOÍFA WHELAN LVN Patient to be evaluated by MD today for taper orders.
[2017-09-20 08:00] VITALS: BP 109/65
[2017-09-20] MEDS: FOLIC ACID 1 MG TABLET PO SCH (08:54)
[2017-09-20] MEDS: MULTIVITAMINS,THERAPEUTIC TABLET PO SCH (08:54)
[2017-09-20] MEDS: THIAMINE HCL 100 MG TABLET PO SCH (08:54)
[2017-09-20] MEDS ORDERED: PNEUMOCOCCAL 23-VAL P-SAC VAC 0.5 ML VIAL IM ONE (10:00)
[2017-09-20] MEDS ORDERED: INFLUENZA VACCINE 2017-2018 0.5 ML DISP.SYRIN IM ONE (10:00)
[2017-09-20] MEDS ORDERED: NICOTINE 14 MG/24HR PATCH TD PRN (10:30)
[2017-09-20] MEDS ORDERED: IBUPROFEN 600 MG TABLET PO PRN (10:30)
[2017-09-20] MEDS ORDERED: LORAZEPAM 1 MG TABLET PO PRN ×2 (10:30)
[2017-09-20] MEDS: LORAZEPAM 1 MG TABLET PO SCH ×3 (10:52→20:54)
[2017-09-20] MEDS: BUPRENORPHINE HCL 2 MG TAB.SUBL SL SCH ×3 (10:52→20:54)
[2017-09-20] MEDS: busPIRone 5 MG TABLET PO SCH ×3 (10:52→16:04)
--- NOTE | 2017-09-20 12:22 | NUR ---
PRN medication; Patient reported one episode of emesis and nausea. PRN Zofran 4mg ODT given to patient. Will continue to monitor for effectiveness of medication.
[2017-09-20 13:00] VITALS: BP 134/98
--- NOTE | 2017-09-20 13:22 | NUR ---
Re-assessment; Patient denies nausea at this time. PRN medication is effective. Will continue to monitor patient.
--- NOTE | 2017-09-20 14:17 | NUR ---
PRN medication; Patient reported another episode of emesis. Instructed patient to keep HOB elevated. PRN Zofran 4mg IM given on left deltoid, patient tolerated procedure well. Will continue to monitor patient for effectiveness of medication.
[2017-09-20] MEDS: ONDANSETRON 4 MG/2 ML VIAL IM PRN (14:47)
--- NOTE | 2017-09-20 15:17 | NUR ---
Re-assessment; Patient denies nausea and no further episodes of emesis noted. PRN medication noted to be effective.
[2017-09-20 16:00] VITALS: BP 136/93
--- NOTE | 2017-09-20 16:04 | NUR ---
PRN medication; Patient is complaining of stomach cramps/abd pain. PRN Bentyl 20mg PO given as per ordered. Will continue to monitor for effectiveness of medication.
--- NOTE | 2017-09-20 17:04 | NUR ---
Re-assessment; Patient denies abdominal cramps at this time. PRN medication noted to be effective.
[2017-09-20] MEDS: PROMETHAZINE HCL 25 MG/1 ML VIAL IM PRN (18:36)
--- NOTE | 2017-09-20 18:36 | NUR ---
PRN medication; Patient reported another episode of vomiting and nausea. PRN Phenergan 25mg IM given on right deltoid. Patient tolerated procedure well, will continue to monitor for effectiveness of medication.
--- NOTE | 2017-09-20 18:56 | NUR ---
End of shift note; Patient is AOX4. Patient was started on a 5 day Ativan and 5 day Subutex tapers, no adverse reactions noted. Patient remained compliant with treatment plan and medication regime. Medications noted to be effective in reducing withdrawal symptoms. Patient's last COWS 10 and last CIWA 7 at 1600. All safety measures secured. Met all needs.
--- NOTE | 2017-09-20 19:06 | NUR ---
PRN PHENERGAN IM RE-ASSESSMENT PATIENT STATES HE FEELS MUCH BETTER,NO NAUSEA AND VOMITING AT THIS TIME. WILL CONTINUE TO MONITOR
[2017-09-20 20:00] VITALS: BP 129/85
--- NOTE | 2017-09-20 20:00 | NUR ---
START OF SHIFT NOTE RECEIVED REPORT FROM DAY SHIFT NURSE. PATIENT IS A 22 YEAR OLD MALE ADMITTED FOR ETOH/OPIATE/BENZO DEPENDENCE. PATIENT IS ON 5 DAY ATIVAN AND 5 DAY SUBUTEX TAPER, STARTED TODAY. PATIENT REPORTS PMH OF SEIZURE, HTN , RESPIRATORY FAILURE, RIGHT TORN MENISCUS, ANXIETY, DEPRESSION,. BIPOLAR AND SCHIZOAFFECTIVE. SKIN INTACT. PATIENT WAS NAUSEATED AND VOMITING DURING THE DAY. PRN ZOFRAN SL , ZOFRAN IM AND PHENERGAN IM GIVEN. PATIENT ABLE TO EAT AND DRINK. LAST COWS 10 AND CIWA 7. WILL CONTINUE TO MONITOR.
[2017-09-20] MEDS: GABAPENTIN 300 MG CAPSULE PO SCH (20:53)
--- NOTE | 2017-09-20 20:55 | NUR ---
PRN ZOFRAN SL ADMINISTRATION PATIENT HAD EPISODE OF NAUSEA AND VOMITING X 1. ZOFRAN SL GIVEN . WILL MONITOR FOR EFFECTIVENESS
--- NOTE | 2017-09-20 21:25 | NUR ---
PRN DELROY LUNA RE-ASSESSMENT PATIENT DENIES N/V AT THIS TIME. WILL CONTINUE TO MONITOR.
--- NOTE | 2017-09-20 23:53 | NUR ---
PRN MEDS PATIENT REPORTS SEVERE ANXIETY, NOTED RESTLESS, PACING INSIDE THE ROOM, SWEATING, UNABLE TO SLEEP, C/O BODY ACHES. CIWA 13. PRN ROBAXIN, ATIVAN 2 MG, BENADRYL AND NICOTINE GUM. WILL MONITOR FOR EFFECTIVENESS
[2017-09-20] MEDS: NICOTINE POLACRILEX 4 MG GUM-PK OF TEN BC PRN (23:56)
[2017-09-21] VITALS: BP 154/92
[2017-09-21] MEDS: ONDANSETRON 4 MG/2 ML VIAL IM PRN (00:25)
--- NOTE | 2017-09-21 00:25 | NUR ---
PRN ZOFRAN IM ADMINISTRATION PATIENT HAD AN EPISODE OF NAUSEA AND VOMITING X 1. ZOFRAN IM GIVEN AND ADVISED TO REST. WILL MONITOR FOR EFFECTIVENESS
--- NOTE | 2017-09-21 00:53 | NUR ---
PRN MEDS RE-ASSESSMENT PATIENT STATES HE'S LESS ANXIOUS, ATIVAN HELPS . CIWA 4 UPON ASSESSMENT. STILL UNABLE TO SLEEP BUT STATES HE WILL TRY. DENIES ANY PAIN AT THIS TIME. WILL CONTINUE TO MONITOR
--- NOTE | 2017-09-21 00:55 | NUR ---
PRN ZOFRAN IM RE-ASSESSMENT PATIENT STATES ZOFRAN IS EFFECTIVE. DENIES ANY N/V AT THIS TIME. WILL CONTINUE TO MONITOR.
--- NOTE | 2017-09-21 03:00 | NUR ---
FELIX OCHOA RE-ASSESSMENT PATIENT ASLEEP AT THIS TIME. RESPIRATION EVEN AND UNLABORED. SAFETY MEASURES IN PLACE. CALL LIGHT IN REACH. WILL CONTINUE TO MONITOR.
--- NOTE | 2017-09-21 04:00 | NUR ---
COWS AND CIWA DEFERRED PATIENT SLEEPING. VS REFUSED. COWS AND CIWA DEFERRED. RESPIRATION EVEN AND UNLABORED. WILL CONTINUE TO MONITOR
--- NOTE | 2017-09-21 07:19 | NUR ---
END OF SHIFT NOTE PATIENT SLEPT 2 HOURS. FLUID INTAKE 3, 950ML. VOIDED X 4 . NO BM. PATIENT CONTINUE ON ATIVAN AND SUBUTEX TAPER. PATIENT HAD 2 EPISODE OF N/V. PRN ZOFRAN SL AND ZOFRAN IM GIVEN, BOTH EFFECTIVE. AT 2353, PATIENT C/O SEVERE ANXIETY, RESTLESSNESS , BODY ACHES AND DIFFICULTY FALLING ASLEEP. UPON ASSESSMENT PATIENT'S CIWA 13. PRN ATIVAN , BENADRYL AND ROBAXIN GIVE. CIWA WENT TO 4 AFTER AN HOUR, ATIVAN EFFECTIVE. WILL CONTINUE TO MONITOR. LAST COWS 8 AND CIWA 4.
--- NOTE | 2017-09-21 07:30 | NUR ---
Start of shift note; Received report from night nurse. Patient is a 22 year old male admitted on 09/20/17 for Opiate/ ETOH/ Benzodiazepine dependence. Patient reported history of Seizures, HTN, respiratory failure, anxiety, depression, bipolar disorder and schizoaffective disorder.Patient had 2 episodes of vomiting, PRN medications were given all noted to be effective. All safety measures secured. Will continue to monitor patient.
[2017-09-21 08:00] VITALS: BP 140/98
[2017-09-21] MEDS: LORAZEPAM 1 MG TABLET PO SCH ×3 (08:06→20:10)
[2017-09-21] MEDS: FOLIC ACID 1 MG TABLET PO SCH (08:07)
[2017-09-21] MEDS: THIAMINE HCL 100 MG TABLET PO SCH (08:07)
[2017-09-21] MEDS: MULTIVITAMINS,THERAPEUTIC TABLET PO SCH (08:07)
[2017-09-21] MEDS: GABAPENTIN 300 MG CAPSULE PO SCH ×3 (08:07→20:11)
[2017-09-21] MEDS: busPIRone 5 MG TABLET PO SCH ×3 (08:07→16:05)
[2017-09-21] MEDS ORDERED: BUPRENORPHINE HCL 2 MG TAB.SUBL SL SCH ×2 (09:00→15:00)
[2017-09-21] MEDS ORDERED: TUBERCULIN,PURIF.PROT.DERIV. 5 TU/0.1 ML TEST ID ONE (09:00)
[2017-09-21] MEDS: PROMETHAZINE HCL 25 MG/1 ML VIAL IM PRN (09:30)
--- NOTE | 2017-09-21 09:30 | NUR ---
PRN medication; Patient is reported episode of vomiting and nausea. PRN Phenergan 25mg IM given for N/V given to left deltoid. Patient tolerated procedure well. Will continue to monitor patient.
--- NOTE | 2017-09-21 10:29 | NUR ---
Therapist prompted client about group times. Client stated he would attend all groups today.
--- NOTE | 2017-09-21 10:30 | NUR ---
Re-assessment; Patient denies nausea and vomiting at this time. PRN medication noted to be effective.
[2017-09-21 10:33] LABS: HEPATITIS B SURFACE AG Negative (Negative)
[2017-09-21] MEDS ORDERED: SENNOSIDES 1 TABLET PO PRN (11:15)
[2017-09-21 12:00] VITALS: BP 160/102
[2017-09-21] MEDS: DOCUSATE SODIUM 250 MG CAPSULE PO SCH (12:04)
[2017-09-21] MEDS: BUPRENORPHINE HCL 2 MG TAB.SUBL SL SCH ×3 (12:05→20:11)
--- NOTE | 2017-09-21 12:05 | NUR ---
PRN medication; Patient's BP is elevated 160/102, PRN Clonidine 0.1mg PO PRN given for elevated BP. Patient is also complaining of constipation, PRN Senna given as ordered. Will continue to monitor for effectiveness of medication.
--- NOTE | 2017-09-21 13:05 | NUR ---
Re-assessment; Re-assessed patient. Patient's current BP is 130/89, PRN Clonidine noted to be effective. Patient did not report any bowel movement at this time, will continue to monitor patient.
[2017-09-21] MEDS: DICYCLOMINE HCL 20 MG TABLET PO SCH ×2 (14:08→20:09)
[2017-09-21 16:00] VITALS: BP 133/88
--- NOTE | 2017-09-21 18:33 | NUR ---
End of shift note; Patient is AOX4. Patient was started on a 5 day Ativan and 5 day Subutex tapers, no adverse reactions noted. Patient remained compliant with treatment plan and medication regime. Medications noted to be effective in reducing withdrawal symptoms. Patient's last COWS 6 and last CIWA 3 at 1600. All safety measures secured. Met all needs.
--- NOTE | 2017-09-21 19:15 | NUR ---
START OF SHIFT Received 22 year old male patient admitted on 09/20/17 for Heroin, ETOH and Xanax dependency. Pt is full code with NKA. He reports history of seizure, HTN, respiratory failure, anxiety, depression, bipolar and schizoaffective disorder. Pt reports using Heroin 1 gram daily for 1.5 months. Last dose was 1 gram on 09/19/17. ETOH (whiskey/vodka) 750mL daily for 2 months. Last dose was 500 mL. And Xanax 8 mg daily for 2 months. Last dose was 8 mg on 09/16/17. Pt placed on 5 day Ativan and 5 day Subutex taper and tolerating well. Per endorsement, pt received PRN Phenergan, Coretta and Clonidine. Pt is alert and oriented x4, breathing even and unlabored. Safety measures in place. Will continue to monitor.
[2017-09-21 20:00] VITALS: BP 152/96
[2017-09-21] MEDS: CLONIDINE HCL 0.1 MG TABLET PO SCH (20:10)
[2017-09-21] MEDS ORDERED: QUETIAPINE FUMARATE 200 MG TABLET PO ONE (22:45)
--- NOTE | 2017-09-21 23:32 | NUR ---
ONE TIME SEROQUEL Pt complains of insomnia and reports he did not sleep well the previous night. He reports taking Seroquel [address] Sosa notified with one time order for Seroquel 300 mg, administered as ordered. Will monitor effectiveness.
--- NOTE | 2017-09-22 | NUR ---
VITALS REFUSED, COWS/CIWA DEFERRED 0000 vitals refused. Pt stated he did not sleep well the night before and does not want to be woken up for vitals. COWS and CIWA deferred d/t pt lying in bed with eyes closed and is asleep. Safety measures in place. Will continue to monitor.
--- NOTE | 2017-09-22 00:32 | NUR ---
REASSESSMENT Seroquel is effective. Pt is lying comfortably in bed with eyes closed and is asleep. Breathing is even and unlabored. Safety measures in place. Will continue to monitor.
--- NOTE | 2017-09-22 03:30 | NUR ---
BEHAVIORAL NOTE Pt was confused and disoriented. He was noted to be walking outside of his room into the hallway without pants on. Pt stated " I'm trying to use the restroom." Pt was assisted back to his room by TROY Raymundo and was able to use restroom. Pt assisted safely back in bed. Side rails up x2, call light within reach. Will continue to monitor.
--- NOTE | 2017-09-22 04:00 | NUR ---
VITALS REFUSED, COWS/CIWA DEFERRED Pt refused to be woken up for 0400 vitals. COWS and CIWA deferred d/t pt lying in bed with eyes closed and is asleep. Safety measures in place. Breathing even and unlabored. Will continue to monitor.
--- NOTE | 2017-09-22 06:25 | NUR ---
BEHAVIORAL NOTE Pt woke up disoriented and confused. Pt stated " what happened last night? Did I yell at anyone? " Primary nurse verbalized to pt that he woke up confused and tried to use the restroom outside of his room. Pt apologized and verbalized understanding. Pt stated " I should cut down on the Seroquel." Pt lying safely in bed, side rails up x2. Will continue to monitor.
--- NOTE | 2017-09-22 07:20 | NUR ---
END OF SHIFT Pt is lying in bed with eyes closed and is asleep. He continues on a 5 day Ativan and 5 day Subutex taper and is tolerating well. He complained of insomnia and received one time order of Seroquel 300 mg. He woke up twice during the shift disoriented and confused. He slept a total of 6 hrs, Intake: 2,355mL, Void: x5, BM:0, COWS:9, CIWA:5. Pt remains alert and oriented x4, breathing even and unlabored. Safety measures in place. Endorsed to AM shift.
--- NOTE | 2017-09-22 07:53 | NUR ---
Start of shift note; Received report from night nurse. Patient is a 22 year old male admitted on 09/20/17 for Opioid/ETOH and Benzodiazepine withdrawals. Patient remained on a 5 day Ativan and 5 day Subutex tapers to help reduce withdrawal symptoms and prevent withdrawal induced seizures. Patient is currently AOX4, reported fatigue, muscle aches, hot and cold sweats and intermittent nausea. Educated patient regarding the importance of compliance to treatment and medication regime, patient verbalized understanding. All safety measures secured. Will continue to monitor patient.
[2017-09-22 08:00] VITALS: BP 130/74
[2017-09-22] MEDS: DOCUSATE SODIUM 250 MG CAPSULE PO SCH (08:58)
[2017-09-22] MEDS: MULTIVITAMINS,THERAPEUTIC TABLET PO SCH (08:58)
[2017-09-22] MEDS: CLONIDINE HCL 0.1 MG TABLET PO SCH ×3 (08:59→20:15)
[2017-09-22] MEDS: DICYCLOMINE HCL 20 MG TABLET PO SCH ×3 (08:59→20:14)
[2017-09-22] MEDS: FOLIC ACID 1 MG TABLET PO SCH (08:59)
[2017-09-22] MEDS: busPIRone 5 MG TABLET PO SCH ×3 (08:59→16:47)
[2017-09-22] MEDS: GABAPENTIN 300 MG CAPSULE PO SCH ×2 (08:59→14:01)
[2017-09-22] MEDS: THIAMINE HCL 100 MG TABLET PO SCH (08:59)
[2017-09-22] MEDS ORDERED: LORAZEPAM 1 MG TABLET PO SCH ×3 (09:00→21:00)
[2017-09-22] MEDS ORDERED: HYDROXYZINE PAMOATE 25 MG CAPSULE PO PRN (09:00)
[2017-09-22] MEDS ORDERED: BUPRENORPHINE HCL 2 MG TAB.SUBL SL SCH ×2 (09:00)
[2017-09-22 12:00] VITALS: BP 133/92
[2017-09-22] MEDS ORDERED: LORAZEPAM 1 MG TABLET PO ONE ×2 (12:15→22:15)
[2017-09-22] MEDS ORDERED: MAGNESIUM CITRATE 296 ML BOTTLE PO ONE (12:15)
--- NOTE | 2017-09-22 12:41 | NUR ---
MD order (one time dose); Patient is AOX4, current CIWA score is 13 manifested by increase in anxiety and agitation, HR of 101, diaphoresis, tremors, agitation, headache. MD ordered one time dose of Ativan 1mg PO , medication given as ordered t help prevent withdrawal induced seizures, will continue to monitor patient for effectiveness of medication. MD also ordered Citrate of magnesium for constipation, given as per MD order.
--- NOTE | 2017-09-22 13:41 | NUR ---
Re-assessment; Patient is AOX4. Re-assessed patient, patient's current CIWA score is 9 manifested by anxiety, tremors, agitation, diaphoreses. CIWA score has improved. One time dose of Ativan noted to be effective.
--- NOTE | 2017-09-22 13:55 | NUR ---
Therapist prompted client about group times. Client stated he will attend all groups today.
[2017-09-22] MEDS: LORAZEPAM 1 MG TABLET PO SCH ×2 (13:57→16:47)
[2017-09-22] MEDS: BACLOFEN 10 MG TABLET PO SCH ×2 (14:00→20:15)
[2017-09-22] MEDS: BUPRENORPHINE HCL 2 MG TAB.SUBL SL SCH ×2 (14:01→20:15)
[2017-09-22] MEDS ORDERED: QUETIAPINE FUMARATE 100 MG TABLET PO PRN (14:15)
[2017-09-22 16:00] VITALS: BP 125/94
--- NOTE | 2017-09-22 18:54 | NUR ---
End of shift note; Patient is AOX4. Patient remained compliant with treatment plan and medication regime. Patient appears diaphoretic, irritable, with feelings of guilt and shame, easily distracted, reported abdominal cramps, myalgia and anxiety. Patient had elevated CIWA score midday which required a one time dose of Ativan per MD, noted to be effective. Patient's COWS score has improved from 11 to 9 and CIWA score improved from 13 to 9. Medications were effective in reducing withdrawal symptoms. Patient encouraged to participate in group activities. All safety measures secured. Met all needs. Endorsed to night nurse.
--- NOTE | 2017-09-22 19:30 | NUR ---
Start of Shift Notes: Report received from day shift nurse. Pt is a 22M, admitted for Opiate, ETOH, and Xanax Dependence on 09/20/17. Pt was in room watching TV upon start of shift. Pt is AOx4 without s/s of acute distress. Pt is full code, on regular diet, and on fall/seizure precautions. Pt noted with NKA. Pt reports hx of sz, HTN, Respiratory Failure, R torn meniscus, Anxiety, Depression, Bipolar, Schizoaaffective. Pt is currently on Subutex and Ativan taper to manage withdrawal symptoms. Last COWS 9 and Last CIWA 9 at 1600. Bed in lowest position. Side rails up x2. Call light functioning and within reach. All needs attended and met. Will continue to monitor.
[2017-09-22 20:00] VITALS: BP 150/86
[2017-09-22] MEDS: KETOROLAC TROMETHAMINE 30 MG INJ IM PRN (20:16)
--- NOTE | 2017-09-22 20:16 | NUR ---
PRN Toradol and PRN Seroquel: Pt c/o 03/25 generalized body pain. Pt refused Naproxen and requested for Toradol Inj. Toradol PRN given as ordered. Pt also requested medication to help him sleep. PRN Seroquel given as ordered. Will continue to monitor.
--- NOTE | 2017-09-22 20:16 | NUR ---
PRN Toradol and PRN Seroquel: Pt reported generalized body pain. Pain level 8/10. Pt refused scheduled Naproxen and requested for PRN Toradol instead. PRN Toradol given as ordered. Pt also requested sleep medication. PRN Seroquel given as ordered. Will continue to monitor. Addendum: 09/23/17 at 0428 by TONY GONSALEZ RN ERROR: Duplicate note
--- NOTE | 2017-09-22 20:30 | NUR ---
Start of Shift Notes: Report received from day shift nurse. Pt is a 22M, admitted for Opiate, ETOH, and Xanax Dependence on 09/20/17. Pt was in room watching TV upon start of shift. Pt is AOx4 without s/s of acute distress. Pt is full code, on regular diet, and on fall/seizure precautions. Pt noted with NKA. Pt reports hx of sz, HTN, Respiratory Failure, R torn meniscus, Anxiety, Depression, Bipolar, Schizoaaffective. Pt is currently on Subutex and Ativan taper to manage withdrawal symptoms. Last COWS 9 and Last CIWA 9 at 1600. Bed in lowest position. Side rails up x2. Call light functioning and within reach. All needs attended and met. Will continue to monitor. Addendum: 09/22/17 at 2109 by TONY GONSALEZ RN ERROR WRONG TIME
[2017-09-22] MEDS: NAPROXEN 500 MG TABLET PO SCH (20:34)
[2017-09-22] MEDS ORDERED: GABAPENTIN 300 MG CAPSULE PO SCH (21:00)
[2017-09-22] MEDS: METHOCARBAMOL 750 MG TABLET PO PRN (21:21)
--- NOTE | 2017-09-22 21:21 | NUR ---
Toradol reassessment, Robaxin PRN, and Vistaril PRN: Pt still c/o muscle aches. Pain level remains at 8/10. Toradol remains ineffective but Robaxin PRN given as ordered. Pt also complained of anxiety. Vistaril PRN given as ordered.
[2017-09-22 22:00] VITALS: BP 141/90
[2017-09-22] MEDS ORDERED: BUPRENORPHINE HCL 2 MG TAB.SUBL SL ONE (22:15)
--- NOTE | 2017-09-22 22:20 | NUR ---
Robaxin and Vistaril reassessment, Communication: Pt still noted with COWS 12 and CIWA 15. Robaxin and Vistaril PRN ineffective. MD made aware with new order for 2mg Ativan and 4mg Subutex. Orders noted and will carry out as soon as pharmacy verifies medications. Will continue to monitor.
[2017-09-23] VITALS: BP 107/58
[2017-09-23] MEDS: NICOTINE POLACRILEX 4 MG GUM-PK OF TEN BC PRN (02:45)
[2017-09-23 04:00] VITALS: BP 133/81
[2017-09-23] MEDS ORDERED: LORAZEPAM 1 MG TABLET PO ONE (04:45)
--- NOTE | 2017-09-23 04:58 | NUR ---
One Time Ativan and Toradol PRN: Pt came up to the unit and stated "I'm still having the same pain from earlier". Toradol PRN given as ordered. Pt also noted with CIWA 17. Pt seen pacing in room and in the halls. Received ONE TIME order for 2mg Ativan. Will continue to monitor.
[2017-09-23] MEDS: KETOROLAC TROMETHAMINE 30 MG INJ IM PRN (04:59)
--- NOTE | 2017-09-23 06:00 | NUR ---
Ativan and Toradol Reassessment: Pt in bed with eyes closed. Unable to reassess pain level and CIWA score. Will continue to monitor.
--- NOTE | 2017-09-23 06:56 | NUR ---
End of Shift Notes: Pt is a 22M, admitted for Opiate, ETOH, and Xanax Dependence on 09/20/17. Pt slept for 4 hours. Pt c/o pain level 8/10. Robaxin PRN given, Toradol PRN given twice, which was effective. Pt c/o anxiety during shift. Vistaril PRN ineffective. Pt c/o inability to sleep. Seroquel ineffective. Pt also noted with increased CIWA of 17. 2mg Ativan PRN effective and pt was able to go to sleep after. Bed in lowest position. Side rails up x2. Call light functioning and within reach. All needs attended and met. Will continue to monitor.
--- NOTE | 2017-09-23 07:05 | NUR ---
Start of Shift Notes: Received endorsement from night nurse. Patient is a 22 year old male admitted for opiate/BZO and ETOH dependence who was placed on a 5-day Ativan and 5-day Subutex taper as ordered. Patient is in his room at this time, appears restless and disheveled. Room noted with multiple candy wrappers, empty water bottles and empty bag of chips. Patient was encouraged to engage in self grooming and maintain hygiene in personal area. Educated patient on his current plan of care for the day and his medication regimen. PRN Toradol and Ativan were given x 2. Will continue to monitor during the day. PRN Seroquel 200 mg PO was ineffective during the night. Will follow up with psych MD for med adjustment.
[2017-09-23 08:00] VITALS: BP 134/96
[2017-09-23] MEDS: DOCUSATE SODIUM 250 MG CAPSULE PO SCH (08:25)
[2017-09-23] MEDS: THIAMINE HCL 100 MG TABLET PO SCH (08:26)
[2017-09-23] MEDS: NAPROXEN 500 MG TABLET PO SCH ×2 (08:26→20:59)
[2017-09-23] MEDS: MULTIVITAMINS,THERAPEUTIC TABLET PO SCH (08:26)
[2017-09-23] MEDS: busPIRone 5 MG TABLET PO SCH ×3 (08:26→16:07)
[2017-09-23] MEDS: BACLOFEN 10 MG TABLET PO SCH (08:26)
[2017-09-23] MEDS: DICYCLOMINE HCL 20 MG TABLET PO SCH ×3 (08:26→20:59)
[2017-09-23] MEDS: GABAPENTIN 300 MG CAPSULE PO SCH ×3 (08:26→21:00)
[2017-09-23] MEDS: CLONIDINE HCL 0.1 MG TABLET PO SCH ×2 (08:26→14:11)
[2017-09-23] MEDS: BUPRENORPHINE HCL 2 MG TAB.SUBL SL SCH ×3 (08:27→21:00)
[2017-09-23] MEDS: FOLIC ACID 1 MG TABLET PO SCH (08:27)
[2017-09-23] MEDS: FAMOTIDINE 20 MG TABLET PO SCH (08:27)
[2017-09-23] MEDS ORDERED: BUPRENORPHINE HCL 2 MG TAB.SUBL SL SCH (09:00)
[2017-09-23] MEDS ORDERED: LORAZEPAM 1 MG TABLET PO SCH ×4 (09:00→21:00)
[2017-09-23] MEDS ORDERED: MAGNESIUM CITRATE 296 ML BOTTLE PO PRN (09:45)
[2017-09-23 12:00] VITALS: BP 131/91
--- NOTE | 2017-09-23 13:50 | NUR ---
THerapist prompted client to come to groups. Client agreed to come.
[2017-09-23] MEDS: BACLOFEN 20 MG TABLET PO SCH ×2 (14:11→20:59)
--- NOTE | 2017-09-23 15:56 | NUR ---
Psych MD evaluation: Patient was seen and examined by Dr. Sosa at this time and adjusted patient's Seroquel. Patient education provided.
[2017-09-23 16:00] VITALS: BP 135/86
[2017-09-23] MEDS ORDERED: QUETIAPINE FUMARATE 100 MG TABLET PO PRN (16:00)
[2017-09-23] MEDS ORDERED: LORAZEPAM 1 MG TABLET PO PRN ×2 (18:00)
--- NOTE | 2017-09-23 19:05 | NUR ---
Start of Shift Patient Received. Patient is in the activities room participating in group meeting. Per endorsement, Patient was seen and evaluated by Psychiatrist with dosing changes made to Seroquel from 100 to 200mg. Patient was note to participate in social and group activities. Will continue plan of care as ordered.
--- NOTE | 2017-09-23 19:11 | NUR ---
End of Shift Notes: Patient continues to be on 5-day Ativan and 5-day Subutex taper as ordered. Patient is tolerating taper well. VS monitored closely. No significant abnormalities notes. Withdrawal symptoms were closely monitored. Initial COWS 9/CIWA 12, patient presented with chills, hot flashes, restlessness, joint aches, anxiety, agitation, gross tremors and sweats. Last COWS 6/CIWA6. Per patient, Ativan and Subutex has been effective in reducing his withdrawal symptoms. Able to participate in group and activities despite his withdrawal symptoms. All needs met and attended. Will continue to monitor.
[2017-09-23 20:56] VITALS: BP 150/87
[2017-09-23] MEDS: CLONIDINE HCL 0.2 MG TABLET PO SCH (20:59)
[2017-09-23] MEDS: QUETIAPINE FUMARATE 200 MG TABLET PO PRN (21:00)
--- NOTE | 2017-09-23 21:00 | NUR ---
PRN Medication Administration Patient is noted to be hyperactive, restless, anxious, racing thoughts, verbalizing inability of falling asleep. Patient is able to discuss possible triggers and coping skills for maintaining sober lifestyle but patient noted to be emotional, worried, and fearful. Encouraged patient to verbalize emotions and remain focus on present situation. Patient verbalized understanding. PRN Seroquel administered for sleep with routine medications. Patient was noted to continue to group movie after medications. Will continue to monitor.
--- NOTE | 2017-09-23 22:00 | NUR ---
PRN Medication Reassessment Patient is noted returning from smoking patio and verbalized Im going to bed. PRN Seroquel noted to be effective. Will continue to monitor.
[2017-09-24 00:57] VITALS: BP 129/81
[2017-09-24 04:27] VITALS: BP 131/86
--- NOTE | 2017-09-24 07:23 | NUR ---
End of Shift Patient is in bed sleeping. Breathing even and non labored. No signs of pain or discomfort noted. Patient continues on a modified Subutex taper and modified Ativan taper. Patient was noted to participate in group meeting upon arrival of shift. Patient received PRN Seroquel for inability of falling asleep with medication noted to be effective. Patient noted to sleep a total of 7 hours with no signs of restlessness noted. During medication administration patient was able to verbalize effective coping skills and positive changes to maintain a sober lifestyle. All needs attended to promptly. Will endorse to continue plan of care as ordered.
--- NOTE | 2017-09-24 07:30 | NUR ---
Start of Shift Notes: Received patient in his room. Alert and oriented x 4. Verbally responsive. Awake. Patient verbalizes that he feels anxious stating "I'm starting to feel like shit." Patient noted with gross tremors, facial flushing. States "I want to go smoke. Patient redirected with therapeutic communication with help. Educated patient on his current plan of care for the day and his medication regimen. Encouraged oral fluid intake and encouraged group participation to learn new skills to prevent relapse. Patient was given Seroquel 200 mg PO as ordered for sleep. Slept for a total of 8 hours. Last . Will continue to monitor.
[2017-09-24 08:00] VITALS: BP 113/89
[2017-09-24] MEDS: BACLOFEN 20 MG TABLET PO SCH ×4 (08:54→21:10)
[2017-09-24] MEDS: CLONIDINE HCL 0.1 MG TABLET PO SCH ×2 (08:54→14:00)
[2017-09-24] MEDS: FOLIC ACID 1 MG TABLET PO SCH (08:55)
[2017-09-24] MEDS: GABAPENTIN 300 MG CAPSULE PO SCH ×3 (08:55→21:11)
[2017-09-24] MEDS: MULTIVITAMINS,THERAPEUTIC TABLET PO SCH (08:55)
[2017-09-24] MEDS: NAPROXEN 500 MG TABLET PO SCH (08:55)
[2017-09-24] MEDS: DICYCLOMINE HCL 20 MG TABLET PO SCH ×3 (08:55→21:10)
[2017-09-24] MEDS: DOCUSATE SODIUM 250 MG CAPSULE PO SCH (08:55)
[2017-09-24] MEDS: THIAMINE HCL 100 MG TABLET PO SCH (08:55)
[2017-09-24] MEDS: busPIRone 5 MG TABLET PO SCH ×3 (08:55→16:34)
[2017-09-24] MEDS: FAMOTIDINE 20 MG TABLET PO SCH (08:56)
[2017-09-24] MEDS ORDERED: BUPRENORPHINE HCL 2 MG TAB.SUBL SL SCH ×2 (09:00)
[2017-09-24] MEDS ORDERED: LORAZEPAM 1 MG TABLET PO SCH ×2 (09:00)
[2017-09-24 12:00] VITALS: BP 137/86
[2017-09-24] MEDS ORDERED: IBUPROFEN 800 MG TABLET PO PRN (13:00)
[2017-09-24] MEDS ORDERED: METHYL SALICYLATE/MENTHOL CREAM 28 GM TUBE TOP PRN (13:00)
[2017-09-24] MEDS ORDERED: OXCARBAZEPINE 150 MG TABLET PO SCH (13:00)
--- NOTE | 2017-09-24 13:30 | NUR ---
Behavior: Patient noted to be going to the nurse's station asking when his next meds are and telling the nurse when he wants his medication given. Patient was redirected and reassurance was provided that he will receive his medications on time. He appears to be constantly asking for more Ativan and Subutex on top of the ordered taper. Current COWS 13/CIWA 13. Informed patient that his next set of medication are due at 1500. Patient needs a lot of redirection and reassurance.
[2017-09-24] MEDS: LORAZEPAM 1 MG TABLET PO SCH ×2 (13:55→21:10)
[2017-09-24] MEDS: BUPRENORPHINE HCL 2 MG TAB.SUBL SL SCH ×2 (13:55→21:11)
[2017-09-24] MEDS: ACETAMINOPHEN 325 MG TABLET PO SCH ×2 (14:00→21:10)
[2017-09-24 16:00] VITALS: BP 138/89
--- NOTE | 2017-09-24 19:04 | NUR ---
End of Shift Notes: Patient continues to be on 5-day Ativan and 5-day Subutex taper as ordered. Patient is tolerating taper well. VS monitored closely. No significant abnormalities notes. Withdrawal symptoms were closely monitored. Initial COWS 16/CIWA 14, patient presented with facial flushing, gross tremors, sweats, myalgia, yanwning, anxiety and agitation. Last COWS 8/CIWA 9. Additional dosing of Ativan and Subutex was given at 1300 per MD. Denies S/, H/I or AV hallucinations. Per patient, Ativan and Subutex has been effective in reducing his withdrawal symptoms. Patient was encouraged diversional activities to alleviate anxiety and to develop coping skills and utilization of non-pharmacological intervention. He was also encouraged to practice self self-soothing techniques such as progressive muscle relazation. Able to participate in group and activities despite his withdrawal symptoms. All needs met and attended. Will continue to monitor.
--- NOTE | 2017-09-24 19:10 | NUR ---
Start of Shift Patient Received. Patient is noted to be very restless, pacing in and out of group meeting. Patient noted to be pre-concerned with what medications were going to be administered. Per endorsement, patient received extra doses of both Ativan and Subutex tapers. Patient was noted to be obsessed with medication. Last noted CIWA 9 and COWS 8. Will continue to monitor.
[2017-09-24 20:54] VITALS: BP 151/98
[2017-09-24] MEDS: CLONIDINE HCL 0.2 MG TABLET PO SCH (21:10)
[2017-09-24] MEDS: OXCARBAZEPINE 150 MG TABLET PO SCH (21:11)
[2017-09-24] MEDS: QUETIAPINE FUMARATE 200 MG TABLET PO PRN (21:12)
--- NOTE | 2017-09-24 21:15 | NUR ---
PRN Medication Administration Patient is noted to be restless, hyperactive, anxious, and complains of insomnia. PRN Seroquel administered with routine medications. Will continue to monitor.
--- NOTE | 2017-09-24 22:20 | NUR ---
PRN Medication Reassessment Patient is noted in bed sleeping. Breathing even and non labored. No signs of restlessness or discomfort noted. PRN Seroquel noted to be effective. Will continue to monitor.
[2017-09-25 00:40] VITALS: BP 132/88
[2017-09-25 04:26] VITALS: BP 129/85
--- NOTE | 2017-09-25 07:24 | NUR ---
End of Shift Patient is noted in bed sleeping but easily aroused to verbal stimuli. Breathing even and non labored. Patient continues on a modified Subutex and Ativan tapers. Patient received PRN Seroquel for complaints of insomnia with medication noted to be effective. Patient slept a total of 5 hours. Last noted COWS 9 and CIWA 9. All needs attended to promptly. Will endorse to continue plan of care as ordered.
--- NOTE | 2017-09-25 07:35 | NUR ---
BEGINNING OF SHIFT Patient endorsement report received from rn shift mgr nurse, all pertinent information discussed. Patient is a 22 year old male with admitting Dx: Opiate/ETOH dependence.. Patient continues on 5 day Ativan and 5 day Subutex taper as ordered, patient taper was modified and extended a day for s/sx of withdrawal patient is scheduled to receive last dose of tapers this morning, will monitor closely. Per rn shift mgr patient with last ciwa score of: 9, and cow score of: 9. received PRN: Seroquel , per rn shift mgr medications was effective, Slept for 5 hours. Patient received awake, alert and oriented x4, educated regarding plan of care for the day, will continue to monitor closely. safety measures in place.
[2017-09-25 08:31] VITALS: BP 150/104
[2017-09-25] MEDS: GABAPENTIN 300 MG CAPSULE PO SCH ×3 (08:32→20:49)
[2017-09-25] MEDS: THIAMINE HCL 100 MG TABLET PO SCH (08:32)
[2017-09-25] MEDS: DOCUSATE SODIUM 250 MG CAPSULE PO SCH (08:32)
[2017-09-25] MEDS: ACETAMINOPHEN 325 MG TABLET PO SCH (08:33)
[2017-09-25] MEDS: CLONIDINE HCL 0.1 MG TABLET PO SCH ×2 (08:33→14:06)
[2017-09-25] MEDS: OXCARBAZEPINE 150 MG TABLET PO SCH (08:33)
[2017-09-25] MEDS: DICYCLOMINE HCL 20 MG TABLET PO SCH ×3 (08:33→20:48)
[2017-09-25] MEDS: FAMOTIDINE 20 MG TABLET PO SCH (08:33)
[2017-09-25] MEDS: FOLIC ACID 1 MG TABLET PO SCH (08:33)
[2017-09-25] MEDS: busPIRone 5 MG TABLET PO SCH ×3 (08:33→16:37)
[2017-09-25] MEDS: MULTIVITAMINS,THERAPEUTIC TABLET PO SCH (08:33)
[2017-09-25] MEDS: BACLOFEN 20 MG TABLET PO SCH ×4 (08:34→20:48)
[2017-09-25] MEDS ORDERED: BUPRENORPHINE HCL 2 MG TAB.SUBL SL SCH ×2 (09:00→12:00)
[2017-09-25] MEDS ORDERED: LORAZEPAM 1 MG TABLET PO SCH ×2 (09:00→12:00)
[2017-09-25 12:11] VITALS: BP 134/80
[2017-09-25] MEDS ORDERED: OXCARBAZEPINE 150 MG TABLET PO SCH (13:00)
[2017-09-25] MEDS: ACETAMINOPHEN ES 500 MG TABLET PO SCH ×2 (14:08→20:49)
[2017-09-25 16:47] VITALS: BP 132/82
--- NOTE | 2017-09-25 19:12 | NUR ---
END OF SHIFT Patient alert and oriented x4, appears with anxious affect, patient with worried and anxious facial expression. Patient easily overwhelmed. Last dose of modified Ativan and modified Subutex was administered today at approximately [address] robles orders, well tolerated, Patient is scheduled to be discharged tomorrow morning, noted self motivated towards sobriety. Patient with admitting Dx: opiate/etoh withdrawal, continuous under very close observation. During shift presented with: elevated heart rate, chills, restlessness, mild bone and joint aches, tremors that can be felt but not seen, irritability, anxiety with initial cow score of: 8 and ciwa score of8, last cow score of: 6 and last ciwa score of: 6. Patient received no PRNs during shift. Patient was encouraged adequate PO fluid intake as tolerated, patient encouraged to develop coping skills and utilization of non pharmacological interventions. Patient was encouraged to participate in therapy session. Encouraged diversional activities to alleviate anxiety. Denies any SI/HI. Safety measures are in place. Call light kept with in reach, continues under close observation. Patient endorsed to security shift supervisor nurse, all pertinent information was discussed. Will continue to monitor.
--- NOTE | 2017-09-25 19:30 | NUR ---
START OF SHIFT Pt is a 22 y/o male admitted on 09/20/17 for ETOH, benzo and ETOH withdrawal. Pt finished a 5 day Ativan and 5 day Subutex taper and is scheduled to be d/c tomorrow. Pt verbalizes having anxiety about being d/c tomorrow d/t moderate to severe body aches and persistent withdrawal symptoms. Educated patient that he will be d/c with medications to aid in S/S of withdrawal. Per day shift nurse, last COWS 6 CIWA 6 and no PRNs administered. Upon assessment pt presents with anxiety, agitation, sweats, restlessness, increased HR and BP and flat affect. Pt frequently paces around hallways with agitation. Safety measures in place. Call light within reach. Medications due. Will continue to monitor.
[2017-09-25 20:00] VITALS: BP_SYST 127; BP_SYST 146; BP_DIAS 74; BP_DIAS 95
[2017-09-25] MEDS ORDERED: QUET200T PO (20:20)
[2017-09-25] MEDS ORDERED: IBUP-1957 PO (20:20)
[2017-09-25] MEDS ORDERED: ACET-2605 PO (20:20)
[2017-09-25] MEDS ORDERED: GABA-534 PO (20:20)
[2017-09-25] MEDS ORDERED: DOCU250C14 PO (20:20)
[2017-09-25] MEDS ORDERED: OXCA300T4 PO (20:20)
[2017-09-25] MEDS ORDERED: FAMO20TA8 PO (20:20)
[2017-09-25] MEDS ORDERED: CLON0.1T14 PO (20:20)
[2017-09-25] MEDS ORDERED: ONDA4TAB11 SL (20:20)
[2017-09-25] MEDS ORDERED: DICY20TA28 PO (20:20)
[2017-09-25] MEDS ORDERED: BACL20TA PO (20:20)
[2017-09-25] MEDS ORDERED: HYDR-3895 PO (20:20)
[2017-09-25] MEDS ORDERED: BUSP5TAB3 PO (20:20)
[2017-09-25] MEDS: CLONIDINE HCL 0.2 MG TABLET PO SCH (20:48)
[2017-09-25] MEDS: OXCARBAZEPINE 300 MG TABLET PO SCH (20:49)
[2017-09-25] MEDS: QUETIAPINE FUMARATE 200 MG TABLET PO PRN (21:14)
--- NOTE | 2017-09-25 21:14 | NUR ---
PRN SEROQUEL 200 MG ADMINISTRATION Pt requests sleep aid for insomnia. Safety measures in place. Call light within reach. Will continue to monitor.
--- NOTE | 2017-09-25 22:14 | NUR ---
PRN SEROQUEL REASSESSMENT Pt remains awake and appears fatigued. Pt states "I will try to sleep." Safety measures in place. Call light within reach. Will continue to monitor.
[2017-09-25] MEDS: KETOROLAC TROMETHAMINE 30 MG INJ IM PRN (22:27)
--- NOTE | 2017-09-25 22:27 | NUR ---
PRN TORADOL INJ ADMINISTRATION Pt reports generalized pain 8/10, presents with facial grimacing and irritability. Safety measures in place. Call light within reach. Will continue to monitor.
--- NOTE | 2017-09-25 23:27 | NUR ---
PRN TORADOL REASSESSMENT Pt reports generalized pain improved to 5/10, appears more comfortable. Safety measures in place. Call light within reach. Will continue to monitor. Addendum: 09/26/17 at 0210 by DEBRA ARREGUIN RN AMEND REASSESSMENT TIME TO [id number]
--- NOTE | 2017-09-26 | NUR ---
COWS/CIWA DEFERRED AND VITALS REFUSED Pt laying in bed with eyes closed, COWS/CIWA deferred, to be assessed when pt is awake per orders. Vitals refused. Respirations even and unlabored. Safety measures in place. Call light within reach. Will continue to monitor.
--- NOTE | 2017-09-26 07:30 | NUR ---
END OF SHIFT Pt is a 22 y/o male admitted on 09/20/17 for ETOH, benzo and ETOH withdrawal. Pt finished a 5 day Ativan and 5 day Subutex taper and is scheduled to be d/c today. Pt verbalized having anxiety about being d/c today d/t moderate to severe body aches and persistent withdrawal symptoms. Educated patient that he will be d/c with medications to aid in S/S of withdrawal. Pt presented with anxiety, agitation, sweats, body aches 8/10, malaise, difficulty sleeping, restlessness, increased HR and BP and flat affect. Pt frequently paced around hallways with agitation. Scheduled medications and PRN Toradol and Seroquel administered, effective in S/S of withdrawal as verbalized by pt. Last COWS 5 and CIWA 5. Pt slept 5 hours. Intake 1500 ml, void x 2, stool x 0. Safety measures in place. Call light within reach. Pts needs have been met. Endorsed to day shift nurse.
--- NOTE | 2017-09-26 07:40 | NUR ---
START OF SHIFT Endorse recvd from ongoing nurse, client is in room, a/o x 4, he is unable to stay still, he said, "I am just to anxious this time, about going to treatment, I always do the treatment, but then I relapse right away." Encourage client to attend AA meeting and get a sponsor; client verbalized his understanding. Client is schedule for d/c to [facility]. PRN Toradol 30mg IM for pain, Seroquel 50mg PO for inability to sleep, noted effective. Last CIWA 5 @ 0530. Will continue to monitor.
[2017-09-26 08:00] VITALS: BP 168/98
--- NOTE | 2017-09-26 08:30 | NUR ---
Client has BP 168/98, he stated, "My blood pressure is always high and more so now that I am anxious about leaving." Encourage client to make an appointment with his PCP for increased BP, to stop smoking, and eat a healthy diet with less salt, and exercise, client verbalized understanding.
[2017-09-26] MEDS: FAMOTIDINE 20 MG TABLET PO SCH (08:35)
[2017-09-26] MEDS: GABAPENTIN 300 MG CAPSULE PO SCH (08:35)
[2017-09-26] MEDS: OXCARBAZEPINE 300 MG TABLET PO SCH (08:35)
[2017-09-26] MEDS: DOCUSATE SODIUM 250 MG CAPSULE PO SCH (08:35)
[2017-09-26 08:36] VITALS: BP 168/98
[2017-09-26] MEDS: BACLOFEN 20 MG TABLET PO SCH (08:36)
[2017-09-26] MEDS: FOLIC ACID 1 MG TABLET PO SCH (08:36)
[2017-09-26] MEDS: MULTIVITAMINS,THERAPEUTIC TABLET PO SCH (08:36)
[2017-09-26] MEDS: CLONIDINE HCL 0.1 MG TABLET PO SCH (08:36)
[2017-09-26] MEDS: DICYCLOMINE HCL 20 MG TABLET PO SCH (08:36)
[2017-09-26] MEDS: THIAMINE HCL 100 MG TABLET PO SCH (08:36)
[2017-09-26] MEDS: busPIRone 5 MG TABLET PO SCH (08:36)
--- NOTE | 2017-09-26 08:36 | NUR ---
Schedule clonidine 0.1mg PO administered BP 168/98. Will continue to monitor.
[2017-09-26] MEDS: ACETAMINOPHEN ES 500 MG TABLET PO SCH (08:38)
--- NOTE | 2017-09-26 09:51 | NUR ---
Discharge Note Client discharged in stable condition with all valuables and belongings. No home medications. Denies HI/SI. Client left facility via [facility] to [facility].
== END 2017-09-26 09:51 | disposition other institution (70) | DRG 895 ==
LOC: SRC 01:19
PROVIDERS: ADMIT Internal Medicine; ATTEND Internal Medicine
PROC: HZ2ZZZZ Detoxification Services for Substance Abuse Treatment (ICD-10-PCS; principal; 2017-09-20)
PROC: HZ41ZZZ Group Counseling for Substance Abuse Treatment, Behavioral (ICD-10-PCS; principal; 2017-09-20)
DX: F10.230 Alcohol dependence with withdrawal, uncomplicated (principal); I15.9 Secondary hypertension, unspecified; F31.9 Bipolar disorder, unspecified; F13.230 Sedative, hypnotic or anxiolytic dependence with withdrawal, uncomplicated; F11.23 Opioid dependence with withdrawal; Y90.6 Blood alcohol level of 120-199 mg/100 ml; K59.03 Drug induced constipation; F17.210 Nicotine dependence, cigarettes, uncomplicated; F12.90 Cannabis use, unspecified, uncomplicated; G47.00 Insomnia, unspecified; Z81.1 Family history of alcohol abuse and dependence; F41.9 Anxiety disorder, unspecified; Z91.89 Other specified personal risk factors, not elsewhere classified; Z86.69 Personal history of other diseases of the nervous system and sense organs
CPT/HCPCS: 36415; 70030-TC; 80307; 80349; 83690; 83735; 84443; 85025; 86580; 86592; 86705; 86803; 87340; 87806; 90732; A4663; A9150; G0480; J1885; J2405; J2550; J3411; Q0162; Q0163